=== PATIENT | male | born 1970 | race Caucasian/White ===

== ENCOUNTER 2020-09-07 12:44 | Inpatient (IN) ==
--- NOTE | 2020-09-07 13:30 | Emergency Department Note ---
History of Present Illness General Chief complaint: Illness Stated complaint: FATIGUE, STOMACH ACHE, WEAK Time Seen by Provider: 09/07/20 12:50 History of Present Illness This is a 50-year-old male with a history of hypertension as well as gout that presents to the emergency department via private vehicle with complaints "fatigue, stomachache, weak". The patient notes that he has a history of alcohol use however since the COVID- pandemic has significantly increased his alcohol consumption. He notes that at 1 point he was drinking greater than 4 drinks of vodka per day. He notes that he noticed itching and became jaundiced therefore stopped drinking 16 days ago. He denies any seizure history. He st ates that despite stopping the alcohol consumption he persists with worsening jaundice and itchiness. He also notes some discomfort when he eats in the superior mid abdomen. Patient denies any acetaminophen ingestion recently. Home Medications Medication Instructions Recorded Confirmed Type allopurinol 300 mg PO HS 09/07/20 09/07/20 History colchicine 0 mg PO DIRECTED PRN 09/07/20 09/07/20 History metoprolol tartrate 50 mg PO BID 09/07/20 09/07/20 History prednisone 0 mg PO DIRECTED PRN 09/07/20 09/07/20 History Allergies Allergy/AdvReac Type Severity Reaction Status Date / Time No Known Allergies Allergy Verified 09/07/20 15:31 Past Med/Surg History Medical History Elevated bilirubin Fatigue History of alcohol abuse Jaundice Surgical History No pertinent past surgical history Social History Smoking Status: Never smoker Hx Alcohol Use: No Hx Substance Use: No Preferred Language: Iranian Communication Ability: Effective Cafeteria Manager Required: No Beliefs That Will Affect Care: None Current Living Situation: Family Feels Safe at Home: Yes Safety Concerns: Feels Safe At This Time Assistive Devices: None Review of Systems A total of 10 systems reviewed and were otherwise negative Physical Exam Vital Signs Vital Signs - 24 hr 09/07/20 12:47 09/07/20 12:52 09/07/20 13:45 Temperature 36.4 C L Temperature Source Oral Oral Pulse Rate 71 Pulse Rate [Right Finger] 65 Pulse Rhythm Regular Pulse Strength Normal Respiratory Rate 20 18 Respiratory Effort / Characteristics Non-Labored Spontaneous Respiratory Depth Normal Respiratory Pattern Regular Blood Pressure 133/79 Blood Pressure [Right Arm] 131/75 Blood Pressure Mean 97 Blood Pressure Mean [Right Arm] 93 Blood Pressure Position Sitting Blood Pressure Position [Right Arm] Pulse Oximetry 98 98 Oxygen Delivery Method Room Air Room Air Room Air Sepsis Recent Fever Within 48 Hours No Sepsis New/Unexplained Change in Mental Status N/A Sepsis Action Taken by Nursing No Action Required 09/07/20 15:06 Temperature Temperature Source Pulse Rate Pulse Rate [Right Finger] 64 Pulse Rhythm Pulse Strength Respiratory Rate 18 Respiratory Effort / Characteristics Non-Labored Spontaneous Respiratory Depth Normal Respiratory Pattern Blood Pressure Blood Pressure [Right Arm] 133/83 Blood Pressure Mean Blood Pressure Mean [Right Arm] 99 Blood Pressure Position Blood Pressure Position [Right Arm] Sitting Pulse Oximetry 98 Oxygen Delivery Method Room Air Sepsis Recent Fever Within 48 Hours Sepsis New/Unexplained Change in Mental Status Sepsis Action Taken by Nursing VITAL SIGNS - Vital signs and nursing notes were reviewed. Stable and afebrile. GENERAL -50-year-old male appearing his stated age who is in no acute distress. Communicates well with provider and answers questions appropriately. SKIN -small erythematous slightly raised subcentimeter regions to the anterior chest. Jaundice. No definite petechiae. HEAD - NC/AT. EYES - PERRL with EOMI bilaterally. Sclera icteric. EARS - No deformities of external structures noted on gross examination bilaterally. NOSE - Midline and without cyanosis. No epistaxis or purulent drainage noted. MOUTH/OROPHARYNX - Without perioral cyanosis. Buccal mucosa pink and moist and without leukoplakia. Tongue midline with equal elevation of palate bilaterally. No tonsillar hypertrophy, erythema, or exudates noted. Fair dentition noted. NECK - Neck with FROM. No nuchal rigidity. LUNGS - Chest wall symmetric without accessory muscle use, intercostals ret ractions, or central cyanosis. Normal vesicular breath sounds CTA B/L. No wheezes, rales, or rhonchi appreciated. CARDIAC - RRR with S1/S2. No murmur, rubs, or gallops appreciated. ABDOMEN - Abdominal contour normal without pulsations or visible masses. BS normoactive all four quadrants. No tenderness to palpation. EXTREMITIES - No clubbing or peripheral cyanosis.+5/5 strength noted in UE/LE bilaterally. NEUROLOGIC - Cranial nerves II through XII grossly intact. PSYCH - A&Ox3 and cooperates fully with examiner. Pt is very pleasant and interacts well with examiner. Course Administered Medications Allopurinol (Allopurinol 300 Mg Tab) 300 mg PO HS JARED Stop: 10/07/20 20:59 Last Admin: 09/07/20 20:55 Dose: 300 mg Documented by: [id number] Cholestyramine Resin (Cholestyramine Light 4 Gm Pkt) 4 gm PO BID@1000,2200 JARED Stop: 10/08/20 14:59 Last Admin: 09/08/20 15:29 Dose: 4 gm Documented by: [id number] Hydroxyzine HCl (Hydroxyzine Hcl 25 Mg Tab) 25 mg PO Q8 PRN PRN Reason: Itching Stop: 10/08/20 09:10 Last Admin: 09/08/20 14:34 Dose: 25 mg Documented by: [id number] Metoprolol Tartrate (Metoprolol Tartrate 50 Mg Tab) 50 mg PO BID JARED Stop: 10/07/20 20:59 Last Admin: 09/08/20 07:36 Dose: 50 mg Documented by: [id number] Admin: 09/07/20 20:55 Dose: 50 mg Documented by: [id number] Pantoprazole Sodium (Pantoprazole 40 Mg Tab) 40 mg PO QAM JARED Stop: 10/08/20 10:59 Last Admin: 09/08/20 11:40 Dose: 40 mg Documented by: [id number] Prednisolone (Prednisolone Syrup 15 Mg/5 Ml Btl) 40 mg PO DAILY JARED Stop: 10/08/20 08:59 Last Admin: 09/08/20 07:36 Dose: 40 mg Documented by: [id number] Thiamine HCl (Thiamine Hcl 100 Mg Tab) 100 mg PO QAM JARED Stop: 10/08/20 08:59 Last Admin: 09/08/20 09:40 Dose: 100 mg Documented by: [id number] Zolpidem Tartrate (Zolpidem Tartrate 5 Mg Tab) 5 mg PO HS PRN PRN Reason: Sleep Stop: 10/07/20 21:24 Last Admin: 09/07/20 22:27 Dose: 5 mg Documented by: [id number] Discontinued Medications Ioversol (Optiray 320 100ml) 89 ml IV ONCE ONE Stop: 09/07/20 15:11 Last Admin: 09/07/20 15:10 Dose: 89 ml Documented by: [id number] Pantoprazole Sodium (Pantoprazole 40 Mg Tab) 40 mg PO NOW STA Stop: 09/07/20 15:37 Last Admin: 09/07/20 15:53 Dose: 40 mg Documented by: [id number] Medical Decision Making Laboratory Data Result diagrams: 09/08/20 07:04 09/08/20 07:04 Lab Results 09/07/20 09/07/20 09/07/20 Range/Units 13:40 13:40 13:40 WBC 13.04 H (4.8-10.8) K/uL RBC 3.90 L (4.7-6.1) M/uL Hgb 12.9 L (14.0-18.0) g/dL Hct 37.4 L (42-52) % MCV 95.9 (80-100) fL MCH 33.1 (25-34) pg MCHC 34.5 (32-36) g/dL RDW Std Deviation 56.6 H (36.4-46.3) fL RDW Coeff of Liliya 16.3 H (11.5-14.5) % Plt Count 400 (130-400) K/uL MPV 11.1 H (7.4-10.4) fL Immature Gran % (Auto) 1.0 % Neut % (Auto) 67.6 % Lymph % (Auto) 14.8 % Mckenzie % (Auto) 14.3 % Eos % (Auto) 1.5 % Baso % (Auto) 0.8 % Neut # (Auto) 8.81 H (1.4-6.5) K/uL Lymph # (Auto) 1.93 (1.2-3.4) K/uL Mckenzie # (Auto) 1.86 H (0.11-0.59) K/uL Eos # (Auto) 0.20 (0-0.5) K/uL Baso # (Auto) 0.11 (0-0.2) K/uL Immature Gran # (Auto) 0.13 H (0.00-0.02) K/uL PT 18.1 H (9.0-12.0) Seconds INR 1.9 H (0.9-1.1) APTT 31.2 H (21.0-31.0) Seconds PTT Ratio 1.2 Sodium 136 (136-145) mmol/L Potassium 4.0 (3.5-5.1) mmol/L Chloride 107 (98-107) mmol/L Carbon Dioxide 24 (21-32) mmol/L Anion Gap 5.0 (3-11) BUN 11 (7-18) mg/dl Creatinine 0.90 (0.6-1.4) mg/dl Est Cr Clr Drug Dosing 133.7 ml/min Est GFR ( Amer) 113.4 Est GFR (Non-Af Amer) 97.9 BUN/Creatinine Ratio 11.8 (10-20) Glucose 91 (70-99) mg/dl Lactate (0.4-2.0) mmol/L Calcium 8.2 L (8.5-10.1) mg/dl Magnesium 2.1 (1.8-2.4) mg/dl Total Bilirubin 11.5 H (0.2-1) mg/dl Direct Bilirubin 8.7 H (0-0.2) mg/dl AST 114 H (15-37) U/L ALT 45 (12-78) U/L Alkaline Phosphatase 207 H (45-117) U/L Total Protein 7.2 (6.4-8.2) gm/dl Albumin 1.9 L (3.4-5.0) gm/dl Procalcitonin (0-0.5) ng/ml Urine Color Urine Appearance (Clear) Urine pH (4.5-7.5) Ur Specific [place] (1.000-1.030) Urine Protein (Negative) Urine Glucose (UA) (Negative) Urine Ketones (Negative) Urine Blood (Negative) Urine Nitrite (Negative) Urine Bilirubin (Negative) Urine Urobilinogen (Negative) Ur Leukocyte Esterase (Negative) Urine WBC (Auto) (0-5) /hpf Urine RBC (Auto) (0-4) /hpf U Hyaline Cast (Auto) (0-5) /lpf U Epithel Cells (Auto) (0-5) /lpf Urine Bacteria (Auto) (Negative) Urine Opiates Screen (Neg) Ur Methadone, Qual (Neg) Urine Barbiturates (Neg) Ur Phencyclidine (PCP) (Neg) U Amphetamin/Meth Scrn (Neg) MDMA (Ecstasy) Screen (Neg) U Benzodiazepines Scrn (Neg) Ur Cocaine Metabolite (Neg) U Marijuana (THC) Screen (Neg) COVID-19 Eval Order SARS-CoV-2 (PCR) (Negative) Hep Bs Antigen (Neg) Hepatitis C Antibody (Neg) Influenza Type A (PCR) (Neg) Influenza Type B (PCR) (Neg) RSV (RT-PCR) (Neg) 09/07/20 09/07/20 09/07/20 Range/Units 13:40 15:53 15:53 WBC (4.8-10.8) K/uL RBC (4.7-6.1) M/uL Hgb (14.0-18.0) g/dL Hct (42-52) % MCV (80-100) fL MCH (25-34) pg MCHC (32-36) g/dL RDW Std Deviation (36.4-46.3) fL RDW Coeff of Liliya (11.5-14.5) % Plt Count (130-400) K/uL MPV (7.4-10.4) fL Immature Gran % (Auto) % Neut % (Auto) % Lymph % (Auto) % Mckenzie % (Auto) % Eos % (Auto) % Baso % (Auto) % Neut # (Auto) (1.4-6.5) K/uL Lymph # (Auto) (1.2-3.4) K/uL Mckenzie # (Auto) (0.11-0.59) K/uL Eos # (Auto) (0-0.5) K/uL Baso # (Auto) (0-0.2) K/uL Immature Gran # (Auto) (0.00-0.02) K/uL PT (9.0-12.0) Seconds INR (0.9-1.1) APTT (21.0-31.0) Seconds PTT Ratio Sodium (136-145) mmol/L Potassium (3.5-5.1) mmol/L Chloride (98-107) mmol/L Carbon Dioxide (21-32) mmol/L Anion Gap (3-11) BUN (7-18) mg/dl Creatinine (0.6-1.4) mg/dl Est Cr Clr Drug Dosing ml/min Est GFR ( Amer) Est GFR (Non-Af Amer) BUN/Creatinine Ratio (10-20) Glucose (70-99) mg/dl Lactate (0.4-2.0) mmol/L Calcium (8.5-10.1) mg/dl Magnesium (1.8-2.4) mg/dl Total Bilirubin (0.2-1) mg/dl Direct Bilirubin (0-0.2) mg/dl AST (15-37) U/L ALT (12-78) U/L Alkaline Phosphatase (45-117) U/L Total Protein (6.4-8.2) gm/dl Albumin (3.4-5.0) gm/dl Procalcitonin 0.54 H (0-0.5) ng/ml Urine Color Dark Yellow Urine Appearance Clear (Clear) Urine pH 7.0 (4.5-7.5) Ur Specific [place] > 1.045 H (1.000-1.030) Urine Protein Negative (Negative) Urine Glucose (UA) Negative (Negative) Urine Ketones Negative (Negative) Urine Blood Negative (Negative) Urine Nitrite Positive A (Negative) Urine Bilirubin 3+ H (Negative) Urine Urobilinogen Positive H (Negative) Ur Leukocyte Esterase Negative (Negative) Urine WBC (Auto) 1-5 (0-5) /hpf Urine RBC (Auto) 0-4 (0-4) /hpf U Hyaline Cast (Auto) 1-5 (0-5) /lpf U Epithel Cells (Auto) 5-10 H (0-5) /lpf Urine Bacteria (Auto) Negative (Negative) Urine Opiates Screen (Neg) Ur Methadone, Qual (Neg) Urine Barbiturates (Neg) Ur Phencyclidine (PCP) (Neg) U Amphetamin/Meth Scrn (Neg) MDMA (Ecstasy) Screen (Neg) U Benzodiazepines Scrn (Neg) Ur Cocaine Metabolite (Neg) U Marijuana (THC) Screen (Neg) COVID-19 Eval Order CovFluRsv at [facility] SARS-CoV-2 (PCR) (Negative) Hep Bs Antigen (Neg) Hepatitis C Antibody (Neg) Influenza Type A (PCR) (Neg) Influenza Type B (PCR) (Neg) RSV (RT-PCR) (Neg) 09/07/20 09/07/20 09/07/20 Range/Units 15:53 15:53 16:46 WBC (4.8-10.8) K/uL RBC (4.7-6.1) M/uL Hgb (14.0-18.0) g/dL Hct (42-52) % MCV (80-100) fL MCH (25-34) pg MCHC (32-36) g/dL RDW Std Deviation (36.4-46.3) fL RDW Coeff of Liliya (11.5-14.5) % Plt Count (130-400) K/uL MPV (7.4-10.4) fL Immature Gran % (Auto) % Neut % (Auto) % Lymph % (Auto) % Mckenzie % (Auto) % Eos % (Auto) % Baso % (Auto) % Neut # (Auto) (1.4-6.5) K/uL Lymph # (Auto) (1.2-3.4) K/uL Mckenzie # (Auto) (0.11-0.59) K/uL Eos # (Auto) (0-0.5) K/uL Baso # (Auto) (0-0.2) K/uL Immature Gran # (Auto) (0.00-0.02) K/uL PT (9.0-12.0) Seconds INR (0.9-1.1) APTT (21.0-31.0) Seconds PTT Ratio Sodium (136-145) mmol/L Potassium (3.5-5.1) mmol/L Chloride (98-107) mmol/L Carbon Dioxide (21-32) mmol/L Anion Gap (3-11) BUN (7-18) mg/dl Creatinine (0.6-1.4) mg/dl Est Cr Clr Drug Dosing ml/min Est GFR ( Amer) Est GFR (Non-Af Amer) BUN/Creatinine Ratio (10-20) Glucose (70-99) mg/dl Lactate (0.4-2.0) mmol/L Calcium (8.5-10.1) mg/dl Magnesium (1.8-2.4) mg/dl Total Bilirubin (0.2-1) mg/dl Direct Bilirubin (0-0.2) mg/dl AST (15-37) U/L ALT (12-78) U/L Alkaline Phosphatase (45-117) U/L Total Protein (6.4-8.2) gm/dl Albumin (3.4-5.0) gm/dl Procalcitonin (0-0.5) ng/ml Urine Color Urine Appearance (Clear) Urine pH (4.5-7.5) Ur Specific [place] (1.000-1.030) Urine Protein (Negative) Urine Glucose (UA) (Negative) Urine Ketones (Negative) Urine Blood (Negative) Urine Nitrite (Negative) Urine Bilirubin (Negative) Urine Urobilinogen (Negative) Ur Leukocyte Esterase (Negative) Urine WBC (Auto) (0-5) /hpf Urine RBC (Auto) (0-4) /hpf U Hyaline Cast (Auto) (0-5) /lpf U Epithel Cells (Auto) (0-5) /lpf Urine Bacteria (Auto) (Negative) Urine Opiates Screen Neg (Neg) Ur Methadone, Qual Neg (Neg) Urine Barbiturates Neg (Neg) Ur Phencyclidine (PCP) Neg (Neg) U Amphetamin/Meth Scrn Neg (Neg) MDMA (Ecstasy) Screen Neg (Neg) U Benzodiazepines Scrn Neg (Neg) Ur Cocaine Metabolite Neg (Neg) U Marijuana (THC) Screen Neg (Neg) COVID-19 Eval Order SARS-CoV-2 (PCR) NEGATIVE (Negative) Hep Bs Antigen Neg (Neg) Hepatitis C Antibody Neg (Neg) Influenza Type A (PCR) Negative (Neg) Influenza Type B (PCR) Negative (Neg) RSV (RT-PCR) Negative (Neg) 09/07/20 Range/Units 16:46 WBC (4.8-10.8) K/uL RBC (4.7-6.1) M/uL Hgb (14.0-18.0) g/dL Hct (42-52) % MCV (80-100) fL MCH (25-34) pg MCHC (32-36) g/dL RDW Std Deviation (36.4-46.3) fL RDW Coeff of Liliya (11.5-14.5) % Plt Count (130-400) K/uL MPV (7.4-10.4) fL Immature Gran % (Auto) % Neut % (Auto) % Lymph % (Auto) % Mckenzie % (Auto) % Eos % (Auto) % Baso % (Auto) % Neut # (Auto) (1.4-6.5) K/uL Lymph # (Auto) (1.2-3.4) K/uL Mckenzie # (Auto) (0.11-0.59) K/uL Eos # (Auto) (0-0.5) K/uL Baso # (Auto) (0-0.2) K/uL Immature Gran # (Auto) (0.00-0.02) K/uL PT (9.0-12.0) Seconds INR (0.9-1.1) APTT (21.0-31.0) Seconds PTT Ratio Sodium (136-145) mmol/L Potassium (3.5-5.1) mmol/L Chloride (98-107) mmol/L Carbon Dioxide (21-32) mmol/L Anion Gap (3-11) BUN (7-18) mg/dl Creatinine (0.6-1.4) mg/dl Est Cr Clr Drug Dosing ml/min Est GFR ( Amer) Est GFR (Non-Af Amer) BUN/Creatinine Ratio (10-20) Glucose (70-99) mg/dl Lactate 1.5 (0.4-2.0) mmol/L Calcium (8.5-10.1) mg/dl Magnesium (1.8-2.4) mg/dl Total Bilirubin (0.2-1) mg/dl Direct Bilirubin (0-0.2) mg/dl AST (15-37) U/L ALT (12-78) U/L Alkaline Phosphatase (45-117) U/L Total Protein (6.4-8.2) gm/dl Albumin (3.4-5.0) gm/dl Procalcitonin (0-0.5) ng/ml Urine Color Urine Appearance (Clear) Urine pH (4.5-7.5) Ur Specific [place] (1.000-1.030) Urine Protein (Negative) Urine Glucose (UA) (Negative) Urine Ketones (Negative) Urine Blood (Negative) Urine Nitrite (Negative) Urine Bilirubin (Negative) Urine Urobilinogen (Negative) Ur Leukocyte Esterase (Negative) Urine WBC (Auto) (0-5) /hpf Urine RBC (Auto) (0-4) /hpf U Hyaline Cast (Auto) (0-5) /lpf U Epithel Cells (Auto) (0-5) /lpf Urine Bacteria (Auto) (Negative) Urine Opiates Screen (Neg) Ur Methadone, Qual (Neg) Urine Barbiturates (Neg) Ur Phencyclidine (PCP) (Neg) U Amphetamin/Meth Scrn (Neg) MDMA (Ecstasy) Screen (Neg) U Benzodiazepines Scrn (Neg) Ur Cocaine Metabolite (Neg) U Marijuana (THC) Screen (Neg) COVID-19 Eval Order SARS-CoV-2 (PCR) (Negative) Hep Bs Antigen (Neg) Hepatitis C Antibody (Neg) Influenza Type A (PCR) (Neg) Influenza Type B (PCR) (Neg) RSV (RT-PCR) (Neg) Imaging Data Radiologist's Impression: Abdomen/Pelvis CT 09/07/20 13:02 CT abd pelvis IV con only CLINICAL HISTORY: jaundice, intermittent abd pain COMPARISON STUDY: None. TECHNIQUE: Patient was scanned in a dynamic helical fashion during the intravenous administration of 89 cc of Optiray 320 A dose lowering technique was utilized adhering to the principles of ALARA. CT DOSE: 1215.01 mGy.cm FINDINGS: Lower chest: The heart is normal in size and configuration, without pericardial effusion. The lung bases and pleural spaces are clear. Liver: No focal hepatic masses are visualized. The portal and hepatic veins are patent. There is an equivocal subtle nodular contour of the serosal surface of the liver. There is a small amount of perihepatic fluid present. Gallbladder: Distended. No calculi are visualized. Spleen: Enlarged measuring 14.7 cm. There is perisplenic fluid. Pancreas: Unremarkable. Adrenal glands: Unremarkable. Kidneys: There is left renal cortical scarring. There are no solid renal masses. There is no hydronephrosis. Bowel: There are no transition zones to indicate bowel obstruction. There is no evidence of acute diverticulitis. There is no evidence of acute appendicitis. Peritoneum: There is minimal ascites. There is no free intraperitoneal air. There is a tiny fat-containing umbilical hernia Vasculature: The abdominal aorta is normal in course and caliber. Adenopathy: None. Pelvic viscera: The bladder, and pelvic viscera are unremarkable. Skeletal structures: No destructive osseous lesions are seen. IMPRESSION: 1. No evidence of bowel obstruction. No evidence of free air 2. No evidence of acute appendicitis. No evidence of acute diverticulitis. 3. Minimal ascites 4. Subtle nodularity of the hepatic serosal surface raising the possibility of cirrhosis. Clinical correlation in this regard is advocated 5. Splenomegaly 6. Distended gallbladder. No calculi identified. 7. Small amount of ascites ACT 112: Negative or not required by law. Electronically signed by: Nathanael Amador M.D. 09/07/2020 3:13 PM Chest X-Ray 09/07/20 15:34 XR chest 1V portable HISTORY: Cough. EVAL FOR PNEUMONIA COMPARISON: None. FINDINGS: The lungs are clear. Cardiac silhouette is normal in size. No pleural effusions. No pneumothorax. IMPRESSION: No acute process. ACT 112: Negative or not required by law. Electronically signed by: Jamshid Ivy M.D. 09/07/2020 4:38 PM MDM Narrative Patient was seen and evaluated as above in room C7. Review was performed of nursing notes and vital signs. After obtaining a thorough history and physical examination the above work up was performed. Patient presents to us today with fatigue, intermittent abdominal pain, jaundice, history of alcohol abuse. On arrival he appears quite jaundiced. Options of care were discussed with the patient. IV access established. Labs were drawn. There is mild leukocytosis 13.04 with mild anemia at 12.9. No thrombocytopenia. INR elevation at 1.9. Calcium 8.2. Direct bilirubin 8.7. T bili 11.5. Alk phos 207. AST 114. ALT 45. Albumin 1.9. Pro-Micky 0.54. Urinalysis consistent with patient's bilirubin elevation. I did order a CT scan of the abd/pelvis to further assess presentation. Results as above. I did discuss presentation with the attending physician as well as the on-call GI sp ecialist. I spoke to Cristal Abdi NP. We reviewed the case. We discussed the importance of further evaluating for any potential underlying infectious etiology therefore chest x-ray, urine drug screen, hepatitis panel, among other tests were ordered. We also discussed potential for steroid initiation however GI notes that they will determine this. They also recommended a daily PPI. I did order this for the patient. GI then noted that they would be happy to see the patient tomorrow here in the hospital. I then discussed the case with the hospitalist for admission. Please refer to further documentation regarding the patient's stay. Patient amenable to plan of care. I suspect patient is likely experiencing acute alcoholic hepatitis. Case was discussed with the attending physician. GCS: 15 In the evaluation and treatment of this patient the following differential diagnoses were entertained: Liver failure, acute alcoholic hepatitis, cirrhosis, cholangitis, sepsis, among others. Impression & Plan Alcoholic hepatitis, Elevated bilirubin, Jaundice, Fatigue Discharge Plan Visit Data Chief Complaint: Illness Stated Complaint: FATIGUE, STOMACH ACHE, WEAK ED Provider: Collin Peña ED Midlevel Provider: Moshe Barragan Discharge Problem: Alcoholic hepatitis, Elevated bilirubin, Jaundice, Fatigue Patient Disposition: Admitted As Inpatient Condition: Good Discharge Instructions Interventions: ED Discharge Assessment Last Done: 09/07/20 17:33
[2020-09-07 13:53] LABS: Basophils # (auto) 0.11 K/uL (0-0.2); Basophils % (auto) 0.8 %; Eosinophils % (auto) 1.5 %; Hematocrit (blood only) 37.4 % (42-52); Hemoglobin 12.9 g/dL (14.0-18.0); Immature Granulocytes # (auto) 0.13 K/uL (0.00-0.02); Lymphocytes # (auto) 1.93 K/uL (1.2-3.4); Lymphocytes % (auto) 14.8 %; Mean Corpuscular Hemoglobin 33.1 pg (25-34); Mean Corpuscular Hgb Conc 34.5 g/dL (32-36); Mean Corpuscular Volume 95.9 fL (80-100); Mean Platelet Volume 11.1 fL (7.4-10.4); Monocytes # (auto) 1.86 K/uL (0.11-0.59); Monocytes % (auto) 14.3 %; Neutrophils # (auto) 8.81 K/uL (1.4-6.5); Neutrophils % (auto) 67.6 %; Platelet Count 400 K/uL (130-400); RDW Coefficient of Variation 16.3 % (11.5-14.5); RDW Standard Deviation 56.6 fL (36.4-46.3); White Blood Count 13.04 K/uL (4.8-10.8)
[2020-09-07 14:07] LABS: INR 1.9 (0.9-1.1); Partial Thromboplastin Ratio 1.2; Partial Thromboplastin Time 31.2 Seconds (21.0-31.0); Prothrombin Time 18.1 Seconds (9.0-12.0)
[2020-09-07 14:40] LABS: Albumin Level 1.9 gm/dl (3.4-5.0); BUN Creatinine Ratio 11.8 (10-20); Bilirubin Direct 8.7 mg/dl (0-0.2); Bilirubin,Total 11.5 mg/dl (0.2-1); Calcium 8.2 mg/dl (8.5-10.1); Creatinine Clr Calc Pharmacy 133.7 ml/min; Est GFR (African American) 113.4; Est GFR (Non-African American) 97.9; Magnesium 2.1 mg/dl (1.8-2.4); Total Protein 7.2 gm/dl (6.4-8.2)
[2020-09-07] MEDS ORDERED: OPTIRAY 320 100ml IV ONE (15:10)
--- NOTE | 2020-09-07 15:14 | CT Scan Report ---
CT abd pelvis IV con only CLINICAL HISTORY: jaundice, intermittent abd pain COMPARISON STUDY: None. TECHNIQUE: Patient was scanned in a dynamic helical fashion during the intravenous administration of 89 cc of Optiray 320 A dose lowering technique was utilized adhering to the principles of ALARA. CT DOSE: 1215.01 mGy.cm FINDINGS: Lower chest: The heart is normal in size and configuration, without pericardial effusion. The lung ba ses and pleural spaces are clear. Liver: No focal hepatic masses are visualized. The portal and hepatic veins are patent. There is an e quivocal subtle nodular contour of the serosal surface of the liver. There is a small amount of perih epatic fluid present. Gallbladder: Distended. No calculi are visualized. Spleen: Enlarged measuring 14.7 cm. There is perisplenic fluid. Pancreas: Unremarkable. Adrenal glands: Unremarkable. Kidneys: There is left renal cortical scarring. There are no solid renal masses. There is no hydronep hrosis. Bowel: There are no transition zones to indicate bowel obstruction. There is no evidence of acute div erticulitis. There is no evidence of acute appendicitis. Peritoneum: There is minimal ascites. There is no free intraperitoneal air. There is a tiny fat-conta ining umbilical hernia Vasculature: The abdominal aorta is normal in course and caliber. Adenopathy: None. Pelvic viscera: The bladder, and pelvic viscera are unremarkable. Skeletal structures: No destructive osseous lesions are seen. IMPRESSION: 1. No evidence of bowel obstruction. No evidence of free air 2. No evidence of acute appendicitis. No evidence of acute diverticulitis. 3. Minimal ascites 4. Subtle nodularity of the hepatic serosal surface raising the possibility of cirrhosis. Clinical co rrelation in this regard is advocated 5. Splenomegaly 6. Distended gallbladder. No calculi identified. 7. Small amount of ascites ACT 112: Negative or not required by law. Electronically signed by: Nathanael Amador M.D. 09/07/2020 3:13 PM
[2020-09-07] MEDS ORDERED: PANTOprazole 40 MG TAB PO STA (15:36)
--- NOTE | 2020-09-07 16:04 | History & Physical Report ---
Date of Service September 07, 2020 Assessment & Plan (1) Alcoholic hepatitis: 50 yo male who drank heavily for the past year developed. Patient Has a an elevated Maddrey score in the 40s. MELD score is showing 3 mortality: 20% It appears patient has not had a drink for over [address] on prednisolone 40 mg daily. will consult GI. NPO after midnight for possible scope Thankfully he is not showing any signs of collateral vein on abdominal exam. will monitor his liver function. Best case scenario his labs improve, but it appears likely that he has developed cirrhosis. Explaied to him that this is a long road and that he will need to continue to abstain from drinking. Will help get him in touch with a liver specialist and a support team to get him through this. (2) Hypertension: BP at goal. continue metoprolol (3) History of alcohol abuse: no isngs of withdrawal. will monitor. History of Present Illness Chief Complaint: yellow skin and itchiness Primary Care Provider: NO PCP 'This is a pleasant 50 yo male who presents with jaundice and generalized pruritus. He reports PMH of gout. He reports having a "tolerance" to drink. He reports that he has drank more over the course of this past year starting from December 2019. He states it is difficult to quantify how much he drinks, but reports having 4 drinks of vodka in a 16 ounce glass. 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 He reports that once he realized he was becoming yellow, he stopped drinking 6 weeks This was accompanied by generalized pruritis. Given how his symptoms have not improved, he decided to come into the hospital Allergies Allergy/AdvReac Type Severity Reaction Status Date / Time No Known Allergies Allergy Verified 09/07/20 15:31 Home Medications Medication Instructions Recorded Confirmed Type allopurinol 300 mg PO HS 09/07/20 09/07/20 History colchicine 0 mg PO DIRECTED PRN 09/07/20 09/07/20 History metoprolol tartrate 50 mg PO BID 09/07/20 09/07/20 History prednisone 0 mg PO DIRECTED PRN 09/07/20 09/07/20 History Past Med/Surg History Medical History (Updated 09/08/20 @ 07:01 by Iraj Kinsey) Elevated bilirubin Fatigue History of alcohol abuse Jaundice Social History Smoking Status: Never smoker Hx Alcohol Use: No Hx Substance Use: No Preferred Language: Egyptian Communication Ability: Effective 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 Beliefs That Will Affect Care: None Current Living Situation: Family Feels Safe at Home: Yes Safety Concerns: Feels Safe At This Time Assistive Devices: None Review of Systems Constitutional: + fatigue, + malaise and + weakness; no chills and no sweats Eyes: no blind spots and no diplopia Ear, Nose, Mouth, Throat: no tinnitus and no dizziness Respiratory: no cough and no change in sputum Cardiovascular: no chest pain and no radiating jaw, neck or arm pain Gastrointestinal: no abdominal pain and no early satiety Genitourinary: no dysuria and no urinary hesitancy Musculoskeletal: no back pain Integumentary: + pruritus and + yellowing of the skin Neurologic: no falls and no paralysis Psychiatric: no behavioral changes and no anhedonia Endocrine: no fatigue Hematologic / Lymphatic: no coagulopathy Physical Exam Constitutional: WD/WN, vitals as above Eyes: PERRLA, icteric sclerae No erythema on the palms ENMT: external ear and nose normal, oropharynx normal Neck: trachea midline, no thyromegaly Respiratory: normal respiratory effort, lungs clear to auscultation Cardiovascular: RRR, no murmur, no edema Gastrointestinal (Abdomen): normal bowel sounds, soft, nontender, no hepatosplenomegaly Musculoskeletal: no cyanosis or clubbing, extremities motor strength 5/5 Skin: no rashes, warm and dry Neurologic: PERRL, EOMI, accommodation nl, no face palsy, no dysarthria Psychiatric: A+Ox3, euthymic affect Lymphatic: no cervical or axillary lymphadenopathy Results & Data Results & Data ([facility]) Vital Signs (Past 12 Hours) Vital Signs Temp Pulse Pulse Resp BP BP Pulse Ox 09/07/20 15:06 64 18 133/83 98 09/07/20 13:45 65 18 131/75 98 09/07/20 12:47 36.4 C L 71 20 133/79 98 PG Care Time/CCT Total # of Minutes Spent Total Time Spent with Patient: Total time spent is greater than 50% in coordination of care (as documented) at patient's floor/unit and/or counseling patient: Coding Level of Care Code 20653 Initial Inpt Care Lvl 3 Diagnoses Alcoholic hepatitis K70.10 Hypertension I10 History of alcohol abuse F10.11 Time Spent (min) 65
[2020-09-07 16:19] LABS: Appearance Urine Clear (Clear); Bacteria Urine Automated Negative (Negative); Blood Urine Negative (Negative); Color Urine Dark Yellow; Glucose Urine UA Negative (Negative); Ketones Urine Negative (Negative); Leukocyte Esterase Urine Negative (Negative); Nitrite Urine Positive (Negative); Protein Urine Negative (Negative); RBC Urine Automated 0-4 /hpf (0-4); Specific Gravity Urine > 1.045 (1.000-1.030); Urobilinogen Urine Positive (Negative)
[2020-09-07 16:28] LABS: Bilirubin Urine 3+ (Negative)
--- NOTE | 2020-09-07 16:40 | XRay Report ---
XR chest 1V portable HISTORY: Cough. EVAL FOR PNEUMONIA COMPARISON: None. FINDINGS: The lungs are clear. Cardiac silhouette is normal in size. No pleural effusions. No pneumot horax. IMPRESSION: No acute process. ACT 112: Negative or not required by law. Electronically signed by: Jamshid Ivy M.D. 09/07/2020 4:38 PM
[2020-09-07 16:43] LABS: Influenza A virus by PCR Negative (Neg); Influenza B virus by PCR Negative (Neg); RSV by PCR Negative (Neg); SARS CoV2 RNA(COVID-19) InHosp NEGATIVE (Negative)
[2020-09-07 16:46] LABS: Amphetamines+Metham, Urine Neg (Neg); Barbiturates, Urine Neg (Neg); Benzodiazepine, Urine Neg (Neg); Cocaine, Urine Neg (Neg); MDMA (Ecstacy), Urine Neg (Neg); Methadone, Urine Neg (Neg); Opiate, Urine Neg (Neg); Phencyclidine, Urine Neg (Neg)
[2020-09-07 17:41] LABS: Hepatitis B Surf Ag Rflx Conf Neg (Neg)
[2020-09-07 18:11] LABS: Hepatitis C IgG 13Yrs+Old_Rflx Neg (Neg)
[2020-09-07] MEDS: METOPROLOL TARTRATE 50 MG TAB PO SCH (20:55)
[2020-09-07] MEDS: allopurinoL 300 MG TAB PO SCH (20:55)
[2020-09-07] MEDS: ZOLPIDEM TARTRATE 5 MG TAB PO PRN (22:27)
[2020-09-08 07:32] LABS: Basophils # (auto) 0.09 K/uL (0-0.2); Basophils % (auto) 0.8 %; Eosinophils # (auto) 0.19 K/uL (0-0.5); Eosinophils % (auto) 1.6 %; Hematocrit (blood only) 33.2 % (42-52); Hemoglobin 11.8 g/dL (14.0-18.0); Immature Granulocytes # (auto) 0.08 K/uL (0.00-0.02); Immature Granulocytes % (auto) 0.7 %; Lymphocytes # (auto) 1.79 K/uL (1.2-3.4); Mean Corpuscular Hgb Conc 35.5 g/dL (32-36); Mean Corpuscular Volume 95.7 fL (80-100); Mean Platelet Volume 10.8 fL (7.4-10.4); Monocytes # (auto) 1.45 K/uL (0.11-0.59); Monocytes % (auto) 12.1 %; Neutrophils # (auto) 8.35 K/uL (1.4-6.5); Neutrophils % (auto) 69.8 %; Platelet Count 332 K/uL (130-400); RDW Coefficient of Variation 16.3 % (11.5-14.5); RDW Standard Deviation 56.8 fL (36.4-46.3); Red Blood Count 3.47 M/uL (4.7-6.1); White Blood Count 11.95 K/uL (4.8-10.8)
[2020-09-08] MEDS: prednisoLONE SYRUP 15 MG/5 ML BTL PO SCH (07:36)
[2020-09-08] MEDS: METOPROLOL TARTRATE 50 MG TAB PO SCH ×2 (07:36→20:09)
--- NOTE | 2020-09-08 07:47 | Hospitalist Progress Note ---
Date of Service September 08, 2020 Assessment & Plan (1) Alcoholic hepatitis: 50 yo male who drank heavily for the past year developed. Patient Has a an elevated Maddrey score in the 40s. MELD score is showing 3 mortality: 20% patient states he has not had a drink for over 2 weeks. Started on prednisolone 40 mg daily, consult GI. initial INR is 1.9 CT abdomen and pelvis shows nodular liver consistent with cirrhosis and splenomegaly (2) Hypertension: BP at goal.remains on metoprolol (3) History of alcohol abuse: no signs of withdrawal. if truely stopped drinking 2 weeks ago past risk of significant withdrawal Admission and Anticipated Discharge Date Admission Date: September 07, 2020 Subjective pt has resolution of abdominal pain and much less nausea, has some itchyness that is still bothersome Review of Systems Review of Systems: Mild distress and fatigue no headache, blurry or double vision no speech or swallowing issues no chest pain, pressure or palpitations no shortness of breath, cough or wheezes Resolution of abdominal pain, persistent of nausea without vomiting no dysuria, hematuria or frequency no focal joint pain or swelling no back pain, CVA tenderness or radicular pain no bruising, bleeding or rashes jaundice and pruritus no focal signs of weakness or numbness or altered sensation no complaints of anxiety or depression.. Physical Exam Physical Exam: The patient appeared well nourished and normally developed. Vital signs as documented. Head exam is normocephalic atraumatic no scleral icterus Neck is without JVD, thyromegaly, or carotid bruits. Lungs are clear to auscultation, no focal loss of breath sounds Cardiac exam, Rhythm is regular.. No murmurs, rubs or gallops. Abdominal exam reveals distention dullness mild uncomfortable feeling to examination Extremities are nonedematous and both pedal pulses are present Neurologic exam is alert and oriented, no focal loss of strength or sensation no tremor no asterixis Skin is with jaundiced Psychologically is without concerns for anxiety or depression Results & Data Results & Data ([facility]) Vital Signs (Past 12 Hours) Vital Signs Temp Pulse Pulse Resp BP Pulse Ox 09/08/20 02:39 98.1 F 75 18 124/70 98 09/07/20 22:43 98.2 F 68 18 125/70 98 09/07/20 22:20 76 09/07/20 19:52 98.2 F 66 18 126/78 97 PG Care Time/CCT Total # of Minutes Spent Total Time Spent with Patient: Total time spent is greater than 50% in coordination of care (as documented) at patient's floor/unit and/or counseling patient: Coding Level of Care Code 38649 Subseq Hosp Care Lvl 3 Diagnoses Alcoholic hepatitis K70.10 Hypertension I10 History of alcohol abuse F10.11
[2020-09-08 07:51] LABS: INR 1.9 (0.9-1.1); Prothrombin Time 18.3 Seconds (9.0-12.0)
[2020-09-08 08:09] LABS: Albumin Globulin Ratio 0.4 (0.9-2); Albumin Level 1.8 gm/dl (3.4-5.0); BUN Creatinine Ratio 12.1 (10-20); Bilirubin,Total 9.9 mg/dl (0.2-1); Creatinine Clr Calc Pharmacy 127.2 ml/min; Est GFR (African American) 107.6; Est GFR (Non-African American) 92.8; Globulin 4.6 gm/dl (2.5-4.0); Potassium 4.2 mmol/L (3.5-5.1); Total Protein 6.4 gm/dl (6.4-8.2)
[2020-09-08] MEDS ORDERED: hydrOXYzine HCl 25 MG TAB PO PRN (09:11)
--- NOTE | 2020-09-08 09:11 | Gastrointestinal Consultation ---
Date of Consultation September 08, 2020 Assessment & Plan (1) Alcoholic hepatitis: Pt is a 50 y/o male presented w jaundice, itching, noted to have elevated LFTs, w/o CT evidence of biliary obstruction, cholelithiasis. He has hx of heavy ETOH use, suspect ETOH hepatitis w cirrhosis (noted on CT). Maddrey Discriminant Function score >32. MELD 23 - Prednisolone 40mg daily. Check Lille score after 7 days, if score is >0.45 then, pt isn't responding to steroids and will stop it. Otherwise if improving, will continue Prednisolone for 28 days before tapering - Continue diet - Trend LFTs, coags, renal function; monitor mental status - Monitor for ETOH withdrawal - Strict ETOH cessation - Will arrange f/u in GI clinic upon DC for continued management - GI to sign off; pls recall prn Supervising Physician Co-Signing Physician Notes I performed a history and physical examination of the patient today, including specifically on physical exam - soft abdomen. I have discussed the patient's management with the advanced practitioner. Please refer to the nurse practitioner's note for the documented findings and plan of care. History of Present Illness Reason for Consultation: Alcoholic hepatitis Requesting Physician: Dr. Pedro Byrne Attending Physician: Dr. Ben Phillips History of Present Illness Pt is a 50 y/o male who presented to ED w c/o jaundice and itching. He admits to 'large amt' of ETOH intake, but had stopped drinking ETOH 16 days ago. [place] generally unwell since months ago but had just noticed himself appearing jaundiced about 1 week ago. Denies fever, chills, CP, SOB. + abd bloating but no pain, n/v, bowel habit changes, no rashes. On eval noted LFTs up: Tbili 9.9, AST 107, ALT 37, Alk phos 198. INR 1.9, Plt 332. CT abd/pelvis w contrast: 1. No evidence of bowel obstruction. No evidence of free air 2. No evidence of acute appendicitis. No evidence of acute diverticulitis. 3. Minimal ascites 4. Subtle nodularity of the hepatic serosal surface raising the possibility of cirrhosis. Clinical correlation in this regard is advocated 5. Splenomegaly 6. Distended gallbladder. No calculi identified. 7. Small amount of ascites Family hx of alcoholism in multiple family members. Denies autoimmune dz, hepatobiliary, colorectal ca Denies tattoos, body piercing, blood transfusion. Previously worked in sales, laid off. Allergies Allergy/AdvReac Type Severity Reaction Status Date / Time No Known Allergies Allergy Verified 09/07/20 15:31 Home Medications Medication Instructions Recorded Confirmed Type allopurinol 300 mg PO HS 09/07/20 09/07/20 History colchicine 0 mg PO DIRECTED PRN 09/07/20 09/07/20 History metoprolol tartrate 50 mg PO BID 09/07/20 09/07/20 History prednisone 0 mg PO DIRECTED PRN 09/07/20 09/07/20 History Patient History Medical History Elevated bilirubin Fatigue History of alcohol abuse Jaundice Surgical History No pertinent past surgical history Social History Smoking Status: Never smoker Hx Alcohol Use: No Hx Substance Use: No Preferred Language: Indonesian Communication Ability: Effective Learning And Development Manager Required: No Beliefs That Will Affect Care: None Current Living Situation: Family Feels Safe at Home: Yes Safety Concerns: Feels Safe At This Time Assistive Devices: None Review of Systems Review of Systems: All systems reviewed & are unremarkable except as noted in HPI & below Physical Exam Constitutional: WD/WN, vitals as above well groomed, cooperative and comfortable Eyes: + scleral abnormality (icteric) and PERRL ENMT: external ear and nose normal, oropharynx normal Respiratory: normal respiratory effort, lungs clear to auscultation Cardiovascular: RRR, no murmur, no edema Gastrointestinal (Abdomen): normal bowel sounds, soft, nontender, no hepatosplenomegaly Skin: no rashes, warm and dry + jaundice Neurologic: Motor/Sensory: no asterixis Psychiatric: A+Ox3, euthymic affect Lymphatic: no lymphedema Results & Data ([facility]) Vital Signs (Past 12 Hours) Vital Signs Temp Pulse Pulse Resp BP Pulse Ox 09/08/20 08:03 36.9 C 61 18 121/69 95 09/08/20 07:58 63 09/08/20 02:39 36.7 C 75 18 124/70 98 09/07/20 22:43 36.8 C 68 18 125/70 98 09/07/20 22:20 76
[2020-09-08] MEDS ORDERED: CYANOCOBALAMIN 500 MCG TABLET (VITAMIN B-12) PO SCH (09:30)
[2020-09-08] MEDS: THIAMINE HCL 100 MG TAB PO SCH (09:40)
[2020-09-08] MEDS: PANTOprazole 40 MG TAB PO SCH (11:40)
[2020-09-08] MEDS: CHOLESTYRAMINE LIGHT 4 GM PKT PO SCH ×2 (15:29→21:48)
[2020-09-08] MEDS: allopurinoL 300 MG TAB PO SCH (20:09)
[2020-09-08] MEDS: ZOLPIDEM TARTRATE 5 MG TAB PO PRN (23:38)
[2020-09-09] MEDS: THIAMINE HCL 100 MG TAB PO SCH (07:26)
[2020-09-09] MEDS: PANTOprazole 40 MG TAB PO SCH (07:26)
[2020-09-09] MEDS: METOPROLOL TARTRATE 50 MG TAB PO SCH (07:27)
[2020-09-09] MEDS: prednisoLONE SYRUP 15 MG/5 ML BTL PO SCH (07:28)
[2020-09-09] MEDS: CHOLESTYRAMINE LIGHT 4 GM PKT PO SCH (08:09)
[2020-09-09 08:11] LABS: Hepatitis A Antibody IgM NON-REACTIVE (NON-REACTIVE); Hepatitis B Core Antibody IgM NON-REACTIVE (NON-REACTIVE)
[2020-09-09] MEDS ORDERED: CYANOCOBALAMIN 500 MCG TABLET (VITAMIN B-12) PO SCH (09:00)
[2020-09-09 09:26] LABS: Albumin Globulin Ratio 0.4 (0.9-2); Albumin Level 1.8 gm/dl (3.4-5.0); BUN Creatinine Ratio 13.2 (10-20); Bilirubin,Total 7.8 mg/dl (0.2-1); Calcium 8.1 mg/dl (8.5-10.1); Creatinine Clr Calc Pharmacy 130.3 ml/min; Est GFR (African American) 111.9; Est GFR (Non-African American) 96.6; Globulin 4.8 gm/dl (2.5-4.0); Potassium 3.5 mmol/L (3.5-5.1); Total Protein 6.6 gm/dl (6.4-8.2)
--- NOTE | 2020-09-09 17:15 | Discharge Summary ---
Date of Service September 09, 2020 Admission HPI Per Admitting Provider 'This is a pleasant 50 yo male who presents with jaundice and generalized pruritus. He reports PMH of gout. He reports having a "tolerance" to drink. He reports that he has drank more over the course of this past year starting from December 2019. He states it is difficult to quantify how much he drinks, but reports having 4 drinks of vodka in a 16 ounce glass. 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 He reports that once he realized he was becoming yellow, he stopped drinking 6 weeks This was accompanied by generalized pruritis. Given how his symptoms have not improved, he decided to come into the hospital Principal Diagnosis alcoholic hepatitis jaundice pruritus Discharge Exam The patient appeared well scleral icterus Vital signs as documented. Lungs are clear to auscultation and appear unlabored Cardiac exam, Rhythm is regular.. No murmurs, rubs or gallops. Abdominal exam reveals normal bowel sounds, soft distended and dull Extremities are nonedematous and both pedal pulses are normal. Neurologic exam is alert and oriented, no focal loss of strength or sensation Skin is with jaundice Psychologically is without concerns for anxiety or depression. Discharge Data Allergies Allergy/AdvReac Type Severity Reaction Status Date / Time No Known Allergies Allergy Verified 09/07/20 15:31 Consultations 09/07/20 15:44 ED Decision to Admit Stat 09/07/20 16:51 Consult Gastroenterology Routine Ordered Studies 09/07/20 13:02 CT abd pelvis IV con only Stat Hospital Course (1) Alcoholic hepatitis: 50 yo male who drank heavily for the past year developed. Patient Has a an elevated Maddrey score in the 40s. MELD score is showing 3 mortality: 20% patient states he has not had a drink for over 2 weeks. Started on prednisolone 40 mg daily, consult GI recommends to continue prednisolone and check labs in one week if continues to improve continue if not will stop, will have labs in one week and follow up with [facility] GI medicine CT abdomen and pelvis shows nodular liver consistent with cirrhosis and splenomegaly (2) Hypertension: BP at goal.remains on metoprolol (3) History of alcohol abuse: no signs of withdrawal. if truely stopped drinking 2 weeks ago past risk of significant withdrawal Total Time Total Time Spent Total Time Spent (In Minutes): it took greater than 30 minutes to complete discharge summary Discharge Plan Discharge Items Patient Disposition: Home - Self-Care Reason For Visit: ALCOHOL HEPATITIS Discharge Diagnosis: alcohol induced hepatitis Condition on Discharge: Good Activity: Resume your previous activity Non-emergency contact: Primary Care Provider and [facility] Call non-emergency contact if: you have any medication questions and your symptoms worsen Follow-up/Referrals: Marino Mccullough CRNP [Nurse Practitioner] - 09/14/20 9:00 am Diet: Low Sodium (2gm) Ambulatory Orders: Comprehensive Metabolic Panel (Routine) Timeframe: 1 Week Location: Determined by Patient Ordered By: Pedro Hutchison Attending Provider Instructions: Alcoholic hepatitis is a diseased, inflammatory condition of the liver caused by heavy alcohol consumption over an extended period of time. It's also aggravated by binge drinking and ongoing alcohol use. If you develop this condition, you must stop drinking alcohol.The only hope to improve is complete abstinence from alcohol all of your blood work has improved as of the day of discharge please contact the [facility] office to arrange for outpt blood work Pending Studies at Discharge: No Stand-Alone Forms: [facility], Smoking Cessation Medications and DC Order Prescriptions: New Cholestyramine Light 4 gram Powder In Packet 4 g PO BID@1000,2200 Qty: 30 RF: 0 prednisolone 15 mg/5 mL Solution 45 mg PO DAILY Qty: 480 RF: 0 zolpidem [Ambien] 5 mg tablet 5 mg PO HS PRN (Reason: insomnia) Qty: 10 RF: 0 Continued metoprolol tartrate 50 mg tablet 50 mg PO BID RF: 0 allopurinol 300 mg tablet 300 mg PO HS RF: 0 colchicine 0.6 mg tablet 0 mg PO DIRECTED PRN (Reason: GOUT FLARE UPS) RF: 0 Discontinued prednisone 10 mg tablet 0 mg PO DIRECTED PRN (Reason: GOUT FLARE UPS) RF: 0 Discharge Orders: Discharge Order (Routine); Ordered 09/09/20 Ordered By: Pedro Amezcua/Other Patient Handouts: Low Salt Diet Dc Admission Data Admit Date/Time: 09/07/20 16:57 Attending Provider: Pedro Byrne Admit Provider: Iraj Kinsey Primary Care Provider: PCP,NO Other Providers: Iraj Kinsey ; Ben Phillips Other Interventions: Discharge Summary Assessment (RN) Last Done: 09/09/20 10:39 Coding Level of Care Code D/C Day Management >30 mins Diagnoses Alcoholic hepatitis K70.10 Hypertension I10 History of alcohol abuse F10.11
== END 2020-09-09 11:20 | disposition home or self-care (01) | DRG 434 ==
LOC: ED 12:44 → INTOOBSV 16:57 → OBSVTOIN 16:57 → 2N 16:57 → SUATTDRO 16:57 → 2N 17:33

== ENCOUNTER 2020-09-17 21:03 | Inpatient (IN) ==
[2020-09-17] MEDS ORDERED: ONDANSETRON INJ 2 MG/ML 2 ML VIAL IV STA (21:20)
[2020-09-17] MEDS ORDERED: KETOROLAC TROMETHAMINE 15 MG/ML VIAL IV STA (21:20)
[2020-09-17] MEDS ORDERED: SODIUM CHLORIDE 0.9% 1000ML 1,000 ML IV ONE (21:20)
[2020-09-17 22:04] LABS: Basophils # (auto) 0.01 K/uL (0-0.2); Basophils % (auto) 0.1 %; Eosinophils # (auto) 0.14 K/uL (0-0.5); Hematocrit (blood only) 38.7 % (42-52); Hemoglobin 13.6 g/dL (14.0-18.0); Immature Granulocytes # (auto) 0.07 K/uL (0.00-0.02); Immature Granulocytes % (auto) 0.5 %; Lymphocytes # (auto) 1.38 K/uL (1.2-3.4); Lymphocytes % (auto) 10.2 %; Mean Corpuscular Hemoglobin 33.3 pg (25-34); Mean Corpuscular Hgb Conc 35.1 g/dL (32-36); Mean Corpuscular Volume 94.9 fL (80-100); Mean Platelet Volume 11.1 fL (7.4-10.4); Monocytes # (auto) 2.37 K/uL (0.11-0.59); Monocytes % (auto) 17.5 %; Neutrophils # (auto) 9.54 K/uL (1.4-6.5); Neutrophils % (auto) 70.7 %; Platelet Count 210 K/uL (130-400); RDW Coefficient of Variation 16.8 % (11.5-14.5); RDW Standard Deviation 57.7 fL (36.4-46.3); Red Blood Count 4.08 M/uL (4.7-6.1); White Blood Count 13.51 K/uL (4.8-10.8)
[2020-09-17 22:17] LABS: INR 1.5 (0.9-1.1); Partial Thromboplastin Time 25.2 Seconds (21.0-31.0); Prothrombin Time 14.7 Seconds (9.0-12.0)
[2020-09-17 22:30] LABS: Albumin Level 2.4 gm/dl (3.4-5.0); BUN Creatinine Ratio 16.3 (10-20); Bilirubin Direct 5.8 mg/dl (0-0.2); Bilirubin,Total 8.8 mg/dl (0.2-1); Calcium 8.7 mg/dl (8.5-10.1); Creatinine Clr Calc Pharmacy 102.2 ml/min; Est GFR (African American) 84.3; Est GFR (Non-African American) 72.8; Potassium 3.5 mmol/L (3.5-5.1); Total Protein 7.6 gm/dl (6.4-8.2)
--- NOTE | 2020-09-17 23:39 | History & Physical Report ---
Date of Service September 17, 2020 Assessment & Plan (1) Pancreatitis: Acute interstitial pancreatitis- Noted on CT of abdomen and pelvis. Lipase upon admission 28,812. Follow serial lipase every morning N.p.o. except medications Received 1 L normal saline in ED, and will add a second liter now. NSS plus KCl 20 mEq at 150 mils per hour Consult gastroenterology Present on Admission?: Yes (2) Gout: Allopurinol 300 mg daily Present on Admission?: Yes (3) Hypertension: Metoprolol tartrate 50 mg p.o. twice daily with hold parameters Present on Admission?: Yes (4) Alcoholic hepatitis: Continue prednisone/prednisolone 45 mg p.o. daily Liver test similar to recent discharge labs MELD score 21 MELDNa score 22 Follow serial CHEM/liver profile Consult gastroenterology Present on Admission?: Yes (5) History of alcohol abuse: Reports abstinence x1 month Present on Admission?: Yes (6) Coagulopathy: INR will mildly worsened from 1.4-1.5 Follow serially Present on Admission?: Yes History of Present Illness Chief Complaint: The patient presents to the emergency department with epigastric and left-sided abdominal pain, diarrhea and noted recent admission for alcoholic hepatitis Primary Care Provider: DAPHNIE Mart The patient is a 50-year-old male with a past medical history including alcoholic hepatitis, alcohol abuse, gout, hypertension, insomnia, elevated bilirubin and jaundice. He was most recently mid to [facility] from 09/07- 09/09/2020 for treatment of alcoholic hepatitis, which time he was discharged on additional medication prednisolone, which is presently at 45 mg daily. He developed 2 days of epigastric and left-sided abdominal pain, and left flank pain. He denies alcohol use in the past month. Significant laboratories: WBC 13.51, hemoglobin 13.6, hematocrit 38.7, INR 1.5, total bilirubin 8.8, direct bilirubin 5.8, AST 151, ALT 146, ammonia 53.3, albumin 2.4, lipase 28,812. CT scan of abdomen and pelvis: Acute interstitial pancreatitis Allergies Allergy/AdvReac Type Severity Reaction Status Date / Time No Known Drug Allergies Allergy Verified 09/17/20 21:56 Home Medications Medication Instructions Recorded Confirmed Type allopurinol 300 mg PO HS 09/07/20 09/17/20 History colchicine 0 mg PO DIRECTED PRN 09/07/20 09/17/20 History metoprolol tartrate 50 mg PO BID 09/07/20 09/17/20 History cholestyramine-aspartame 4 g PO BID@1000,2200 #30 ea 09/09/20 09/17/20 Rx [Cholestyramine Light] prednisolone 45 mg PO DAILY #480 ml 09/09/20 09/17/20 Rx zolpidem [Ambien] 5 mg PO HS PRN #10 tab 09/09/20 09/17/20 Rx aluminum hydrox-magnesium carb 2 tab PO QAM 09/17/20 09/17/20 History [Gaviscon] bismuth subsalicylate 524 mg PO QID PRN 09/17/20 09/17/20 History [Pepto-Bismol] Past Med/Surg History Medical History Elevated bilirubin Gout History of alcohol abuse Jaundice Surgical History H/O knee surgery left x 2 No pertinent past surgical history Family History Family/Other Myocardial infarction patient notes several [place] on father and mothers side Mother Kidney disease Grandmother (Paternal) Diabetes Grandfather (Maternal) Black lung Grandfather No problems noted. Grandfather (Paternal) Black lung Uncle Black lung Denies family history of Ovarian cancer Prostate cancer Breast cancer Colorectal cancer Social History Smoking Status: Never smoker Hx Alcohol Use: Yes Alcohol type: hard liquor Hx Substance Use: No Preferred Language: Occitan Communication Ability: Effective Visual Impairment: No Limitations Hearing Ability: Normal Buzzsaw Operator Required: No Beliefs That Will Affect Care: None and Denominational Denominational Beliefs: Pt would like last rites marital status: Current Living Situation: Family current occupational status: employed Other Information That Helps Us Care for You: No Feels Safe at Home: Yes Safety Concerns: Feels Safe At This Time Diet Comment: well balanced diet caffeine: No during the past year weight has: remained stable Dental Care, Regularly: No Physical Activity Frequency: Other Seatbelt Use: always Sunscreen Use: Yes Assistive Devices: Denture - Upper and Glasses Review of Systems Review of Systems: The patient denies chest pain, palpitations, shortness of breath, dyspnea on exertion, cough, lower extremity swelling, sore throat, fevers, chills, sweats, nausea, vomiting, blood in urine or stool, dysuria, urinary frequency or urgency, lightheadedness, dizziness, headache, memory loss, loss of consciousness, rash, abnormal bruising or bleeding, imbalance, focal or generalized weakness, numbness or tingling in arms or legs, generalized arthralgias or myalgias, neck pain, or night sweats. The review of systems is otherwise negative other than for that already noted above, and at least 10 systems have been reviewed. Physical Exam Physical Exam: The patient is awake, alert and oriented 3, normocephalic and atraumatic, lying in bed and in no acute distress. HEENT--PERRL, EOMI, mucous membranes and oropharynx dry. Neck--supple. No JVD. No bruits. Thyroid normal, trachea midline, no adenopathy. Heart--normal S1 and S2. No murmurs, rubs or gallops. Lungs--clear bilaterally, no respiratory distress, no accessory muscle use. Abdomen--normal bowel sounds and soft. Tender left abdomen and flank. Mildly distended. Extremities--no cyanosis or clubbing. No edema. Dermatologic--normal skin turgor, normal color, no abnormal lymph nodes, no rash. Neurologic--cranial nerves II through XII grossly intact. Rheumatologic--normal range of motion. Psychiatric--normal affect. Results & Data Results & Data ([facility]) Vital Signs (Past 12 Hours) Vital Signs Temp Pulse Resp BP Pulse Ox 09/17/20 22:30 71 20 118/57 L 98 09/17/20 22:00 75 21 138/68 99 09/17/20 21:33 99 09/17/20 21:09 99.1 F 84 18 145/88 H 98 Laboratory Results Laboratory Results WBC 13.51 K/uL (4.8-10.8) H 09/17/20 21:53 RBC 4.08 M/uL (4.7-6.1) L 09/17/20 21:53 Hgb 13.6 g/dL (14.0-18.0) L 09/17/20 21:53 Hct 38.7 % (42-52) L 09/17/20 21:53 MCV 94.9 fL (80-100) 09/17/20 21:53 MCH 33.3 pg (25-34) 09/17/20 21:53 MCHC 35.1 g/dL (32-36) 09/17/20 21:53 RDW Std Deviation 57.7 fL (36.4-46.3) H 09/17/20 21:53 RDW Coeff of Liliya 16.8 % (11.5-14.5) H 09/17/20 21:53 Plt Count 210 K/uL (130-400) 09/17/20 21:53 MPV 11.1 fL (7.4-10.4) H 09/17/20 21:53 Immature Gran % (Auto) 0.5 % 09/17/20 21:53 Neut % (Auto) 70.7 % 09/17/20 21:53 Lymph % (Auto) 10.2 % 09/17/20 21:53 [place] % (Auto) 17.5 % 09/17/20 21:53 Eos % (Auto) 1.0 % 09/17/20 21:53 Baso % (Auto) 0.1 % 09/17/20 21:53 Neut # (Auto) 9.54 K/uL (1.4-6.5) H 09/17/20 21:53 Lymph # (Auto) 1.38 K/uL (1.2-3.4) 09/17/20 21:53 [place] # (Auto) 2.37 K/uL (0.11-0.59) H 09/17/20 21:53 Eos # (Auto) 0.14 K/uL (0-0.5) 09/17/20 21:53 Baso # (Auto) 0.01 K/uL (0-0.2) 09/17/20 21:53 Immature Gran # (Auto) 0.07 K/uL (0.00-0.02) H 09/17/20 21:53 PT 14.7 Seconds (9.0-12.0) H 09/17/20 21:53 INR 1.5 (0.9-1.1) H 09/17/20 21:53 APTT 25.2 Seconds (21.0-31.0) 09/17/20 21:53 PTT Ratio 1.0 09/17/20 21:53 Sodium 136 mmol/L (136-145) 09/17/20 21:53 Potassium 3.5 mmol/L (3.5-5.1) 09/17/20 21:53 Chloride 108 mmol/L (98-107) H 09/17/20 21:53 Carbon Dioxide 20 mmol/L (21-32) L 09/17/20 21:53 Anion Gap 8.0 (3-11) 09/17/20 21:53 BUN 19 mg/dl (7-18) H 09/17/20 21:53 Creatinine 1.15 mg/dl (0.6-1.4) 09/17/20 21:53 Est Cr Clr Drug Dosing 102.2 ml/min 09/17/20 21:53 Est GFR ( Amer) 84.3 09/17/20 21:53 Est GFR (Non-Af Amer) 72.8 09/17/20 21:53 BUN/Creatinine Ratio 16.3 (10-20) 09/17/20 21:53 Glucose 129 mg/dl (70-99) H 09/17/20 21:53 Calcium 8.7 mg/dl (8.5-10.1) 09/17/20 21:53 Total Bilirubin 8.8 mg/dl (0.2-1) H 09/17/20 21:53 Direct Bilirubin 5.8 mg/dl (0-0.2) H 09/17/20 21:53 AST 151 U/L (15-37) H 09/17/20 21:53 ALT 146 U/L (12-78) H 09/17/20 21:53 Alkaline Phosphatase 176 U/L (45-117) H 09/17/20 21:53 Ammonia 53.3 umol/L (11-32) H 09/17/20 21:53 Total Protein 7.6 gm/dl (6.4-8.2) 09/17/20 21:53 Albumin 2.4 gm/dl (3.4-5.0) L 09/17/20 21:53 Lipase 66258 U/L (73-393) H 09/17/20 21:53 COVID-19 Eval Order CovFluRsv at [facility] 09/17/20 22:43 SARS-CoV-2 (PCR) NEGATIVE (Negative) 09/17/20 22:43 Influenza Type A (PCR) Negative (Neg) 09/17/20 22:43 Influenza Type B (PCR) Negative (Neg) 09/17/20 22:43 RSV (RT-PCR) Negative (Neg) 09/17/20 22:43 Diagnostic Findings [facility] Patient: ANASTASIYA LI (Male) : 66 Status: ER Date: 09/17/20 23:49 Room #: History: abdominal pain, appendix present Slices: [phone] Priors: Tech: Caroline Ventura @ [phone] Exams: CT ABDOMEN & PELVIS With Contrast Contrast: IV Amt: 89 cc's Accession Numbers: [id number] Preliminary Findings Only See Final Report For Complete Findings CT ABDOMEN & PELVIS With Contrast: Acute interstitial pancreatitis. Mild inflammatory changes. No parenchymal necrosis or radiopaque obstructing stone. Small cystic lesion within the neck measuring 8 mm. Small volume free fluid within the abdomen and pelvis. Remainder of the solid organs and GI tract are unremarkable. Radiologist: Meño Ny MD Study ready at 23:51 and initial results transmitted at 00:11 *This report constitutes a preliminary interpretation only. Non-acute findings felt to be unrelated to the clinical presentation may not be discussed in this report. The study will be interpreted and a final report will be generated by the local Radiologist the following shift. To reach the hospital radiology department call [phone]. If a discrepancy is found between the preliminary and final interpretations of this study, please notify us via our Client Portal at [email or web address], under QA Exams.You can also fax this report with a description of the discrepancy, or include the final report, to our daytime fax number [phone].If faxing, please indicate the severity of discrepancy using one of the following categories: [ ] 1 - Agree/Informational [ ] 2 - Unlikely to Affect Management [ ] 3 - Possible Eventual Change of Management [ ] 4 - Probable Immediate Change of Management For all other patient related information, please fax us at [phone]. [id number] Code Status & VTE Plan Code Status Full code VTE Prophylaxis Plan VTE Prophylaxis will be ordered: Yes PG Care Time/CCT Total # of Minutes Spent Total Time Spent with Patient: Total time spent is greater than 50% in coordination of care (as documented) at patient's floor/unit and/or counseling patient: Coding Level of Care Code 24377 Initial Inpt Care Lvl 3 Diagnoses Pancreatitis K85.90 Acute pancreatitis complication: unspecified Chronicity: acute Pancreatitis type: unspecified pancreatitis type Gout M10.9 Hypertension I10 Alcoholic hepatitis K70.10 History of alcohol abuse F10.11 Coagulopathy D68.9 (1) Pancreatitis Acute pancreatitis complication: unspecified Chronicity: acute Pancreatitis type: unspecified pancreatitis type Qualified Code(s): K85.90 - Acute pancreatitis without necrosis or infection, unspecified
[2020-09-17] MEDS ORDERED: SODIUM CHLORIDE 0.9% 1000ML 1,000 ML IV SCH (23:40)
[2020-09-17 23:41] LABS: Influenza A virus by PCR Negative (Neg); Influenza B virus by PCR Negative (Neg); RSV by PCR Negative (Neg); SARS CoV2 RNA(COVID-19) InHosp NEGATIVE (Negative)
[2020-09-17] MEDS ORDERED: OPTIRAY 300 100mL IV ONE (23:50)
--- NOTE | 2020-09-18 00:19 | Emergency Department Note ---
History of Present Illness General Chief Complaint: Abdominal Pain Stated Complaint: EPIGASTRIC PAIN Time Seen by Provider: 09/17/20 21:20 History of Present Illness Provider Complaint: abdominal pain Onset (ago): 2 day(s) Pain Consistency: constant Location: diffuse Severity: moderate Maximum Pain Intensity: 7 Current Pain Intensity: 7 Quality: + stabbing, + aching, + sharp and + dull Relieved By: + nothing Exacerbated By: + nothing Associated Symptoms: + diarrhea; no nausea, no vomiting, no fever, no chills, no constipation, no dysuria, no hematemesis, no hematochezia, no melena, no hematuria, no syncope, no headache, no back pain, no chest pain, no weakness, no breathing difficulty and no numbness Patient states that he was recently admitted to the hospital for alcoholic hepatitis. He states he was placed on prednisone daily for the alcoholic hepatitis by Gloria VIDAL. He states he is scheduled to follow-up with Gloria VIDAL next month. Patient states he has not had a drink in the last month. Home Medications Medication Instructions Recorded Confirmed Type allopurinol 300 mg PO HS 09/07/20 09/17/20 History colchicine 0 mg PO DIRECTED PRN 09/07/20 09/17/20 History metoprolol tartrate 50 mg PO BID 09/07/20 09/17/20 History cholestyramine-aspartame 4 g PO BID@1000,2200 #30 ea 09/09/20 09/17/20 Rx [Cholestyramine Light] prednisolone 45 mg PO DAILY #480 ml 09/09/20 09/17/20 Rx zolpidem [Ambien] 5 mg PO HS PRN #10 tab 09/09/20 09/17/20 Rx aluminum hydrox-magnesium carb 2 tab PO QAM 09/17/20 09/17/20 History [Gaviscon] bismuth subsalicylate 524 mg PO QID PRN 09/17/20 09/17/20 History [Pepto-Bismol] Allergies Allergy/AdvReac Type Severity Reaction Status Date / Time No Known Drug Allergies Allergy Verified 09/17/20 21:56 Past Med/Surg History Medical History Elevated bilirubin Gout History of alcohol abuse Jaundice Surgical History H/O knee surgery left x 2 No pertinent past surgical history Family History Family/Other Myocardial infarction patient notes several IA on father and mothers side Mother Kidney disease Grandmother (Paternal) Diabetes Grandfather (Maternal) Black lung Grandfather No problems noted. Grandfather (Paternal) Black lung Uncle Black lung Denies family history of Ovarian cancer Prostate cancer Breast cancer Colorectal cancer Social History Smoking Status: Unknown if ever smoked Hx Alcohol Use: Yes Hx Substance Use: No Preferred Language: Cuban Communication Ability: Effective Visual Impairment: No Limitations Hearing Ability: Normal Sheep Or Calf Grader Required: No Beliefs That Will Affect Care: None marital status: Current Living Situation: Family current occupational status: employed Feels Safe at Home: Yes Diet Comment: well balanced diet caffeine: No during the past year weight has: remained stable Dental Care, Regularly: No Physical Activity Frequency: Other Seatbelt Use: always Sunscreen Use: Yes Assistive Devices: None Review of Systems A total of 10 systems reviewed and were otherwise negative Physical Exam Vital Signs: Vital Signs - 24 hr 09/17/20 21:09 09/17/20 21:33 09/17/20 22:00 Temperature 37.3 C Temperature Source Temporal Artery Sc an Pulse Rate 84 75 Pulse Rate from Sp O2 Sensor 77 Respiratory Rate 18 21 Respiratory Effort / Characteristics Non-Labored Sponta neous Respiratory Depth Normal Respiratory Patter n Regular Blood Pressure 145/88 H 138/68 Blood Pressure Lianna n 107 91 Blood Pressure Pos ition Sitting Pulse Oximetry 98 99 99 Oxygen Delivery Me thod Room Air Room Air Room Air Sepsis Recent Feve r Within 48 Hours No Sepsis New/Unexpla ined Change in Men vicente Status No Sepsis Action Take n by Nursing No Action Required 09/17/20 22:30 09/17/20 23:00 Temperature Temperature Source Pulse Rate 71 69 Pulse Rate from Sp O2 Sensor 71 69 Respiratory Rate 20 15 Respiratory Effort / Characteristics Respiratory Depth Respiratory Patter n Blood Pressure 118/57 L 129/86 Blood Pressure Lianna n 77 100 Blood Pressure Pos ition Pulse Oximetry 98 99 Oxygen Delivery Me thod Room Air Room Air Sepsis Recent Feve r Within 48 Hours Sepsis New/Unexpla ined Change in Men vicente Status Sepsis Action Take n by Nursing Physical Exam: Physical Exam GENERAL: He is oriented to person, place, and time. He appears well-developed a nd well-nourished. He does not appear distressed. HENT: Exam performed. - Head: Normocephalic and atraumatic. - Right Ear: External ear normal. No mastoid tenderness. - Left Ear: External ear normal. No mastoid tenderness. - Mouth/Throat: The oropharynx is clear and moist. No trismus in the jaw. No dental abscesses or uvula swelling. No oropharyngeal exudate or tonsillar abscesses. EYES: Conjunctivae and EOM are normal. Pupils are equal, round, and reactive to light. Right eye exhibits no discharge. Left eye exhibits no discharge. scleral icterus bilaterally NECK: Normal range of motion. Neck supple. No JVD present. No spinous process tenderness present. No carotid bruit present. No rigidity. No tracheal deviation and normal range of motion present. No Brudzinski's sign and no Kernig's sign noted. CV: Normal rate, regular rhythm, normal heart sounds and intact distal pulses. There is no peripheral edema. Palpable radial pulses bue. PULM/CHEST: Effort normal and breath sounds normal. No respiratory distress. No stridor. He has no wheezes. He has no rales. - Chest Wall: He exhibits no tenderness. ABD: The abdomen is soft. Bowel sounds are normal. He has no distension. No mass is present. There is diffuse tenderness to palpation. There is no rebound, no guarding, no Fuentes's sign and no tenderness at McBurney's point. Rovsig negative. MUSC/SKEL: Normal range of motion. There is no peripheral edema, tenderness or deformity. LYMPH: No cervical adenopathy. NEURO: He is alert and oriented to person, place, and time. He has normal strength. No cranial nerve deficit or sensory deficit. Coordination and gait normal. GCS eye subscore is 4. GCS verbal subscore is 5. GCS motor subscore is 6. Cerebellar tests wnl. No asterixis. SKIN: Patient is jaundiced. PSYCH: He has a normal mood and affect. Behavior is normal. Judgment and thought content normal. Course Course 2119: The patient was evaluated in room C1. A complete history and physical exam was performed Cardiac monitoring: An order was placed for continuous cardiac monitoring. The monitor shows a rate of 80 with sinus rhythm EMR reviewed. Patient was admitted to the hospital from September 07 to September 09, 2020. He was diagnosed with alcoholic hepatitis. He was started on prednisone 40 mg daily at the request of GI. 0023: Vital signs stable. Labs show leukocytosis of 13.5. This is most likely due to his prednisone usage over the last 2 weeks. AST 151 ALT 146. Alkaline phosphatase 176. Ammonia 53.3. Patient has no evidence of encephalopathy. Total bilirubin 8.8 up from 7.7 on September 15, 2020. Direct bilirubin 5.8. Lipase elevated ,812. CT showed pancreatitis. [facility]. Romero. Is thought that the patient's pancreatitis could be due to his steroid usage. Administered Medications Discontinued Medications Sodium Chloride (Nss 1000ml) 1,000 mls @ 999 mls/hr IV .Q1H1M ONE Stop: 09/17/20 22:20 Last Infusion: 09/17/20 23:12 Dose: 0 mls/hr Documented by: [id number] Admin: 09/17/20 22:07 Dose: 999 mls/hr Documented by: [id number] Ioversol (Optiray 300 100ml) 89 ml IV ONCE ONE Stop: 09/17/20 23:51 Last Admin: 09/17/20 23:50 Dose: 89 ml Documented by: [id number] Ketorolac Tromethamine (Ketorolac Tromethamine 15 Mg/Ml Vial) 15 mg IV NOW STA Stop: 09/17/20 21:21 Last Admin: 09/17/20 22:07 Dose: 15 mg Documented by: [id number] Ondansetron HCl (Ondansetron Inj 2 Mg/Ml 2 Ml Vial) 4 mg IV NOW STA Stop: 09/17/20 21:21 Last Admin: 09/17/20 22:07 Dose: 4 mg Documented by: [id number] Medical Decision Making Laboratory Data Result diagrams: 09/17/20 21:53 09/17/20 21:53 Lab Results 09/17/20 09/17/20 09/17/20 Range/Units 21:53 21:53 21:53 WBC 13.51 H (4.8-10.8) K/uL RBC 4.08 L (4.7-6.1) M/uL Hgb 13.6 L (14.0-18.0) g/dL Hct 38.7 L (42-52) % MCV 94.9 (80-100) fL MCH 33.3 (25-34) pg MCHC 35.1 (32-36) g/dL RDW Std Deviation 57.7 H (36.4-46.3) fL RDW Coeff of Liliya 16.8 H (11.5-14.5) % Plt Count 210 (130-400) K/uL MPV 11.1 H (7.4-10.4) fL Immature Gran % (Auto) 0.5 % Neut % (Auto) 70.7 % Lymph % (Auto) 10.2 % [place] % (Auto) 17.5 % Eos % (Auto) 1.0 % Baso % (Auto) 0.1 % Neut # (Auto) 9.54 H (1.4-6.5) K/uL Lymph # (Auto) 1.38 (1.2-3.4) K/uL [place] # (Auto) 2.37 H (0.11-0.59) K/uL Eos # (Auto) 0.14 (0-0.5) K/uL Baso # (Auto) 0.01 (0-0.2) K/uL Immature Gran # (Auto) 0.07 H (0.00-0.02) K/uL PT 14.7 H (9.0-12.0) Seconds INR 1.5 H (0.9-1.1) APTT 25.2 (21.0-31.0) Seconds PTT Ratio 1.0 Sodium 136 (136-145) mmol/L Potassium 3.5 (3.5-5.1) mmol/L Chloride 108 H (98-107) mmol/L Carbon Dioxide 20 L (21-32) mmol/L Anion Gap 8.0 (3-11) BUN 19 H (7-18) mg/dl Creatinine 1.15 (0.6-1.4) mg/dl Est Cr Clr Drug Dosing 102.2 ml/min Est GFR ( Amer) 84.3 Est GFR (Non-Af Amer) 72.8 BUN/Creatinine Ratio 16.3 (10-20) Glucose 129 H (70-99) mg/dl Calcium 8.7 (8.5-10.1) mg/dl Total Bilirubin 8.8 H (0.2-1) mg/dl Direct Bilirubin 5.8 H (0-0.2) mg/dl AST 151 H (15-37) U/L ALT 146 H (12-78) U/L Alkaline Phosphatase 176 H (45-117) U/L Ammonia (11-32) umol/L Total Protein 7.6 (6.4-8.2) gm/dl Albumin 2.4 L (3.4-5.0) gm/dl Lipase 30607 H (73-393) U/L COVID-19 Eval Order SARS-CoV-2 (PCR) (Negative) Influenza Type A (PCR) (Neg) Influenza Type B (PCR) (Neg) RSV (RT-PCR) (Neg) 09/17/20 09/17/20 09/17/20 Range/Units 21:53 22:43 22:43 WBC (4.8-10.8) K/uL RBC (4.7-6.1) M/uL Hgb (14.0-18.0) g/dL Hct (42-52) % MCV (80-100) fL MCH (25-34) pg MCHC (32-36) g/dL RDW Std Deviation (36.4-46.3) fL RDW Coeff of Liliya (11.5-14.5) % Plt Count (130-400) K/uL MPV (7.4-10.4) fL Immature Gran % (Auto) % Neut % (Auto) % Lymph % (Auto) % [place] % (Auto) % Eos % (Auto) % Baso % (Auto) % Neut # (Auto) (1.4-6.5) K/uL Lymph # (Auto) (1.2-3.4) K/uL [place] # (Auto) (0.11-0.59) K/uL Eos # (Auto) (0-0.5) K/uL Baso # (Auto) (0-0.2) K/uL Immature Gran # (Auto) (0.00-0.02) K/uL PT (9.0-12.0) Seconds INR (0.9-1.1) APTT (21.0-31.0) Seconds PTT Ratio Sodium (136-145) mmol/L Potassium (3.5-5.1) mmol/L Chloride (98-107) mmol/L Carbon Dioxide (21-32) mmol/L Anion Gap (3-11) BUN (7-18) mg/dl Creatinine (0.6-1.4) mg/dl Est Cr Clr Drug Dosing ml/min Est GFR ( Amer) Est GFR (Non-Af Amer) BUN/Creatinine Ratio (10-20) Glucose (70-99) mg/dl Calcium (8.5-10.1) mg/dl Total Bilirubin (0.2-1) mg/dl Direct Bilirubin (0-0.2) mg/dl AST (15-37) U/L ALT (12-78) U/L Alkaline Phosphatase (45-117) U/L Ammonia 53.3 H (11-32) umol/L Total Protein (6.4-8.2) gm/dl Albumin (3.4-5.0) gm/dl Lipase (73-393) U/L COVID-19 Eval Order CovFluRsv at [facility] SARS-CoV-2 (PCR) NEGATIVE (Negative) Influenza Type A (PCR) Negative (Neg) Influenza Type B (PCR) Negative (Neg) RSV (RT-PCR) Negative (Neg) Imaging Data Radiologist's Impression: Preliminary Findings Only See Final Report For Complete Findings CT ABDOMEN & PELVIS With Contrast: Acute interstitial pancreatitis. Mild inflammatory changes. No parenchymal necrosis or radiopaque obstructing stone. Small cystic lesion within the neck measuring 8 mm. Small volume free fluid within the abdomen and pelvis. Remainder of the solid organs and GI tract are unremarkable. Radiologist: Mñeo Ny MD Study ready at 23:51 and initial results transmitted at 00:11 [facility] Narrative 2119: The patient was evaluated in room C1. A complete history and physical exam was performed Cardiac monitoring: An order was placed for continuous cardiac monitoring. The monitor shows a rate of 80 with sinus rhythm EMR reviewed. Patient was admitted to the hospital from September 07 to September 09, 2020. He was diagnosed with alcoholic hepatitis. He was started on prednisone 40 mg daily at the request of GI. 0023: Vital signs stable. Labs show leukocytosis of 13.5. This is most likely due to his prednisone usage over the last 2 weeks. AST 151 ALT 146. Alkaline phosphatase 176. Ammonia 53.3. Patient has no evidence of encephalopathy. Total bilirubin 8.8 up from 7.7 on September 15, 2020. Direct bilirubin 5.8. Lipase elevated 28,812. CT showed pancreatitis. Patient was admitted to the [facility] hospitalist team Dr. Romero. Is thought that the patient's pancreatitis could be due to his steroid usage. Impression & Plan Pancreatitis Discharge Plan Visit Data Chief Complaint: Abdominal Pain Stated Complaint: EPIGASTRIC PAIN ED Provider: Charles Ayala Discharge Problem: Pancreatitis Patient Disposition: Admitted As Inpatient Discharge Instructions Interventions: ED Discharge Assessment Last Done: 09/18/20 00:04 Forms Stand Alone Forms: My [facility] Prescriptions Prescriptions: No Action bismuth subsalicylate [Pepto-Bismol] 262 mg/15 mL Suspension 524 mg PO QID PRN (Reason: gastric upset) RF: 0 Gaviscon 160-105 mg Tablet,Chewable 2 tab PO QAM RF: 0 metoprolol tartrate 50 mg tablet 50 mg PO BID RF: 0 allopurinol 300 mg tablet 300 mg PO HS RF: 0 colchicine 0.6 mg tablet 0 mg PO DIRECTED PRN (Reason: GOUT FLARE UPS) RF: 0 Cholestyramine Light 4 gram Powder In Packet 4 g PO BID@1000,2200 Qty: 30 RF: 0 prednisolone 15 mg/5 mL Solution 45 mg PO DAILY Qty: 480 RF: 0 zolpidem [Ambien] 5 mg tablet 5 mg PO HS PRN (Reason: insomnia) Qty: 10 RF: 0 Referrals Referrals: Marino Mccullough CRNP [Primary Care Provider] - Discharge Problem: Pancreatitis Qualifiers: Chronicity: acute Pancreatitis type: unspecified pancreatitis type Acute pancreatitis complication: unspecified Qualified Code(s): K85.90 - Acute pancreatitis without necrosis or infection, unspecified
[2020-09-18] MEDS ORDERED: ONDANSETRON INJ 2 MG/ML 2 ML VIAL IV PRN (00:27)
[2020-09-18] MEDS ORDERED: BISMUTH SUBSALICYLATE SUSP PO PRN (00:27)
[2020-09-18] MEDS ORDERED: HYDROCORTISONE SOD SUCCINATE 100 MG/2 ML VIAL IV SCH (00:27)
[2020-09-18] MEDS ORDERED: HYDROCORTISONE SOD 100 MG in SYRINGE 0 ML IV SCH (01:00)
[2020-09-18] MEDS: NSS + 20MEQ KCL 20 MEQ/1,000 ML BAG IV SCH ×4 (01:23→23:33)
[2020-09-18] MEDS: ZOLPIDEM TARTRATE 5 MG TAB PO PRN ×2 (01:33→21:40)
[2020-09-18] MEDS ORDERED: ALUMINUM/MAGNESIUM SUSP 30 ML UDC PO PRN (01:42)
[2020-09-18 06:00] LABS: Eosinophils # (auto) 0.02 K/uL (0-0.5); Eosinophils % (auto) 0.2 %; Hematocrit (blood only) 33.4 % (42-52); Immature Granulocytes # (auto) 0.04 K/uL (0.00-0.02); Immature Granulocytes % (auto) 0.5 %; Lymphocytes # (auto) 0.58 K/uL (1.2-3.4); Lymphocytes % (auto) 6.9 %; Mean Corpuscular Hemoglobin 33.7 pg (25-34); Mean Corpuscular Hgb Conc 35.9 g/dL (32-36); Mean Corpuscular Volume 93.8 fL (80-100); Mean Platelet Volume 11.3 fL (7.4-10.4); Monocytes # (auto) 0.28 K/uL (0.11-0.59); Monocytes % (auto) 3.3 %; Neutrophils # (auto) 7.46 K/uL (1.4-6.5); Neutrophils % (auto) 89.1 %; Platelet Count 173 K/uL (130-400); RDW Coefficient of Variation 16.5 % (11.5-14.5); Red Blood Count 3.56 M/uL (4.7-6.1); White Blood Count 8.38 K/uL (4.8-10.8)
[2020-09-18 06:12] LABS: INR 1.6 (0.9-1.1); Partial Thromboplastin Ratio 1.1; Partial Thromboplastin Time 28.7 Seconds (21.0-31.0); Prothrombin Time 15.7 Seconds (9.0-12.0)
[2020-09-18 06:35] LABS: Albumin Globulin Ratio 0.4 (0.9-2); Albumin Level 2.1 gm/dl (3.4-5.0); BUN Creatinine Ratio 18.4 (10-20); Bilirubin,Total 8.4 mg/dl (0.2-1); Calcium 7.9 mg/dl (8.5-10.1); Creatinine Clr Calc Pharmacy 138.8 ml/min; Est GFR (African American) 116.7; Est GFR (Non-African American) 100.7; Globulin 4.7 gm/dl (2.5-4.0); Magnesium 2.1 mg/dl (1.8-2.4); Potassium 4.1 mmol/L (3.5-5.1); Total Protein 6.8 gm/dl (6.4-8.2)
--- NOTE | 2020-09-18 08:00 | CT Scan Report ---
CT abd pelvis IV con only CLINICAL HISTORY: Epigastric pain COMPARISON STUDY: September 07, 2020 TECHNIQUE: The patient was scanned in a dynamic helical fashion during intravenous administration of 89 cc of Optiray 320. A dose lowering technique was utilized adhering to the principles of ALARA. CT DOSE: 1017.88 mGy.cm FINDINGS: Lower chest: There are mild atelectatic changes present. Liver: No focal hepatic masses are visualized. There is a very subtle nodular contour of the serosal surface of the liver. There is perihepatic ascites. Gallbladder: No calculi identified. There is mild gallbladder wall thickening. Spleen: Enlarged measuring 15 cm Pancreas: There is equivocal mild pancreatic edema with minimal peripancreatic infiltration. Correlat e with biochemical markers for evidence of acute pancreatitis. There is 8 mm cystic focus within the pancreatic neck. Adrenal glands: Unremarkable. Kidneys: There is symmetric renal cortical enhancement. The kidneys are normal in size without hydron ephrosis. Bowel: There are no transition zones indicate bowel obstruction. There is no evidence of acute divert iculitis. The appendix appears normal. Peritoneum: There is no free air. There is low volume ascites. Vasculature: The abdominal aorta is normal in course and caliber. Adenopathy: None. Pelvic viscera: The bladder, and pelvic viscera are unremarkable. Skeletal structures: No destructive osseous lesions are seen. IMPRESSION: 1. No evidence of bowel obstruction. No evidence of free air 2. Normal appendix. No evidence of acute diverticulitis 3. Minor gallbladder wall thickening 4. Low volume ascites 5. Splenomegaly 6. Equivocal mild pancreatic edema with minimal infiltration of peripancreatic fat. Correlate with ap propriate biochemical markers with regards to acute pancreatitis. 7. 8 mm cystic lesion within the pancreatic neck 8. Possible hepatic cirrhosis ACT 112: Negative or not required by law. Electronically signed by: Nathanael Amador M.D. 09/18/2020 7:59 AM
--- NOTE | 2020-09-18 09:02 | Gastrointestinal Consultation ---
Date of Consultation September 18, 2020 Assessment & Plan (1) Pancreatitis: (2) Alcoholic hepatitis: Patient with a history of alcoholic hepatitis recently discharged from the hospital. He appears to be responding to use of steroids as his discriminant function index is now 25.4. With this I would suggest continued use of prednisolone 40 mg/day. With regard to the acute pancreatitis it may be reasonable to pursue an MRCP to ensure that the patient does not have occult stone disease. With the patient's medical history I wonder about continued alcohol abuse as an outpatient. Recommendations Continue with steroid use would suggest prednisolone 40 mg/day MRCP ordered Continue with thiamine and folate supplementation Watch for signs of alcohol withdrawal History of Present Illness Reason for Consultation: Jaundice Attending Physician: Owen Mcdaniel, DO History of Present Illness The patient is a 50-year-old male with a long history of alcohol abuse who presented to the hospital approximately 10 days ago for onset of jaundice. He was found to have evidence of alcoholic hepatitis and placed on to a course of steroids by my partners. The patient was discharged and notes she had been doing fairly well at home until approximately 48 hours ago when he began to have symptoms of abdominal discomfort. He notes that he presented to the emergency room last night and was found to have a significant elevation of his serum lipase. When asked about his ongoing alcohol use the patient is somewhat evasive and was somewhat terse with me. Family hx of alcoholism in multiple family members. Denies autoimmune dz, hepatobiliary, colorectal ca Denies tattoos, body piercing, blood transfusion. Previously worked in sales, laid off. Allergies Allergy/AdvReac Type Severity Reaction Status Date / Time No Known Drug Allergies Allergy Verified 09/17/20 21:56 Home Medications Medication Instructions Recorded Confirmed Type allopurinol 300 mg PO HS 09/07/20 09/17/20 History colchicine 0 mg PO DIRECTED PRN 09/07/20 09/17/20 History metoprolol tartrate 50 mg PO BID 09/07/20 09/17/20 History cholestyramine-aspartame 4 g PO BID@1000,2200 #30 ea 09/09/20 09/17/20 Rx [Cholestyramine Light] prednisolone 45 mg PO DAILY #480 ml 09/09/20 09/17/20 Rx zolpidem [Ambien] 5 mg PO HS PRN #10 tab 09/09/20 09/17/20 Rx aluminum hydrox-magnesium carb 2 tab PO QAM 09/17/20 09/17/20 History [Gaviscon] bismuth subsalicylate 524 mg PO QID PRN 09/17/20 09/17/20 History [Pepto-Bismol] Patient History Medical History Elevated bilirubin Gout History of alcohol abuse Jaundice Surgical History H/O knee surgery left x 2 No pertinent past surgical history Family History Family/Other Myocardial infarction patient notes several ME on father and mothers side Mother Kidney disease Grandmother (Paternal) Diabetes Grandfather (Maternal) Black lung Grandfather No problems noted. Grandfather (Paternal) Black lung Uncle Black lung Denies family history of Ovarian cancer Prostate cancer Breast cancer Colorectal cancer Social History Smoking Status: Never smoker Hx Alcohol Use: Yes Alcohol type: hard liquor Hx Substance Use: No Preferred Language: Latvian Communication Ability: Effective Visual Impairment: No Limitations Hearing Ability: Normal Data Reviewer Required: No Beliefs That Will Affect Care: None and Denominational Denominational Beliefs: Pt would like last marital status: Current Living Situation: Family current occupational status: employed Other Information That Helps Us Care for You: No Feels Safe at Home: Yes Safety Concerns: Feels Safe At This Time Diet Comment: well balanced diet caffeine: No during the past year weight has: remained stable Dental Care, Regularly: No Physical Activity Frequency: Other Seatbelt Use: always Sunscreen Use: Yes Assistive Devices: Denture - Upper and Glasses Review of Systems Constitutional: + malaise; no fever, no sweats and no body aches Eyes: no diplopia Ear, Nose, Mouth, Throat: no ear pain, no tinnitus and no dizziness Respiratory: no change in sputum and no hemoptysis Cardiovascular: no chest pain with activity Gastrointestinal: + abdominal pain; no belching, no bloating, no nausea and no vomiting Genitourinary: no urinary frequency Musculoskeletal: no back pain Neurologic: no falls Psychiatric: no change in appetite Endocrine: no polydipsia Hematologic / Lymphatic: no easy bleeding and no coagulopathy Physical Exam Constitutional: well developed and well nourished; no acute distress Eyes: Scleral icterus noted Neck: trachea midline, no thyromegaly Respiratory: normal respiratory effort; no respiratory distress, no labored breathing and no retractions Cardiovascular: Rate/Rhythm: regular rate Heart Sounds: no murmur Gastrointestinal (Abdomen): Inspection/Auscultation: normal bowel sounds; abdomen not distended Percussion/Palpation: + abdomen tender (Minimal tenderness noted in the left abdomen no right upper quadrant tender) and abdomen soft Skin: + jaundice Neurologic: Speech / Cognition: normal speech Motor/Sensory: no tremor Results & Data ([facility]) Vital Signs (Past 12 Hours) Vital Signs Temp Pulse Pulse Resp BP BP Pulse Ox 09/18/20 07:45 37.1 C 79 20 131/84 96 09/18/20 03:27 36.9 C 75 18 120/65 96 09/18/20 00:30 36.9 C 72 18 135/79 98 09/18/20 00:27 36.9 C 18 135/79 98 09/18/20 00:24 79 09/17/20 23:00 69 15 129/86 99 09/17/20 22:30 71 20 118/57 L 98 09/17/20 22:00 75 21 138/68 99 09/17/20 21:33 99 09/17/20 21:09 37.3 C 84 18 145/88 H 98 Pulse Ox 09/18/20 07:45 09/18/20 03:27 09/18/20 00:30 09/18/20 00:27 98 09/18/20 00:24 09/17/20 23:00 09/17/20 22:30 09/17/20 22:00 09/17/20 21:33 09/17/20 21:09 Laboratory Results Laboratory Results - last 24 hr 09/17/20 09/17/20 09/17/20 21:53 21:53 21:53 WBC 13.51 H RBC 4.08 L Hgb 13.6 L Hct 38.7 L MCV 94.9 MCH 33.3 MCHC 35.1 RDW Std Deviation 57.7 H RDW Coeff of Liliya 16.8 H Plt Count 210 MPV 11.1 H Immature Gran % (Auto) 0.5 Neut % (Auto) 70.7 Lymph % (Auto) 10.2 [place] % (Auto) 17.5 Eos % (Auto) 1.0 Baso % (Auto) 0.1 Neut # (Auto) 9.54 H Lymph # (Auto) 1.38 [place] # (Auto) 2.37 H Eos # (Auto) 0.14 Baso # (Auto) 0.01 Immature Gran # (Auto) 0.07 H PT 14.7 H INR 1.5 H APTT 25.2 PTT Ratio 1.0 Sodium 136 Potassium 3.5 Chloride 108 H Carbon Dioxide 20 L Anion Gap 8.0 BUN 19 H Creatinine 1.15 Est Cr Clr Drug Dosing 102.2 Est GFR ( Amer) 84.3 Est GFR (Non-Af Amer) 72.8 BUN/Creatinine Ratio 16.3 Glucose 129 H Calcium 8.7 Magnesium Total Bilirubin 8.8 H Direct Bilirubin 5.8 H AST 151 H ALT 146 H Alkaline Phosphatase 176 H Ammonia Total Protein 7.6 Albumin 2.4 L Globulin Albumin/Globulin Ratio Lipase 65402 H COVID-19 Eval Order SARS-CoV-2 (PCR) Influenza Type A (PCR) Influenza Type B (PCR) RSV (RT-PCR) 09/17/20 09/17/20 09/17/20 21:53 22:43 22:43 WBC RBC Hgb Hct MCV MCH MCHC RDW Std Deviation RDW Coeff of Liliya Plt Count MPV Immature Gran % (Auto) Neut % (Auto) Lymph % (Auto) [place] % (Auto) Eos % (Auto) Baso % (Auto) Neut # (Auto) Lymph # (Auto) [place] # (Auto) Eos # (Auto) Baso # (Auto) Immature Gran # (Auto) PT INR APTT PTT Ratio Sodium Potassium Chloride Carbon Dioxide Anion Gap BUN Creatinine Est Cr Clr Drug Dosing Est GFR ( Amer) Est GFR (Non-Af Amer) BUN/Creatinine Ratio Glucose Calcium Magnesium Total Bilirubin Direct Bilirubin AST ALT Alkaline Phosphatase Ammonia 53.3 H Total Protein Albumin Globulin Albumin/Globulin Ratio Lipase COVID-19 Eval Order CovFluRsv at [facility] SARS-CoV-2 (PCR) NEGATIVE Influenza Type A (PCR) Negative Influenza Type B (PCR) Negative RSV (RT-PCR) Negative 09/18/20 09/18/20 09/18/20 05:49 05:49 05:49 WBC 8.38 RBC 3.56 L Hgb 12.0 L Hct 33.4 L MCV 93.8 MCH 33.7 MCHC 35.9 RDW Std Deviation 57.0 H RDW Coeff of Liliya 16.5 H Plt Count 173 MPV 11.3 H Immature Gran % (Auto) 0.5 Neut % (Auto) 89.1 Lymph % (Auto) 6.9 [place] % (Auto) 3.3 Eos % (Auto) 0.2 Baso % (Auto) 0.0 Neut # (Auto) 7.46 H Lymph # (Auto) 0.58 L [place] # (Auto) 0.28 Eos # (Auto) 0.02 Baso # (Auto) 0.00 Immature Gran # (Auto) 0.04 H PT 15.7 H INR 1.6 H APTT 28.7 PTT Ratio 1.1 Sodium 138 Potassium 4.1 D Chloride 112 H Carbon Dioxide 19 L Anion Gap 7.0 BUN 15 Creatinine 0.84 D Est Cr Clr Drug Dosing 138.8 Est GFR ( Amer) 116.7 Est GFR (Non-Af Amer) 100.7 BUN/Creatinine Ratio 18.4 Glucose 122 H Calcium 7.9 L Magnesium 2.1 Total Bilirubin 8.4 H Direct Bilirubin AST 121 H ALT 124 H Alkaline Phosphatase 160 H Ammonia Total Protein 6.8 Albumin 2.1 L Globulin 4.7 H Albumin/Globulin Ratio 0.4 L Lipase 43044 H COVID-19 Eval Order SARS-CoV-2 (PCR) Influenza Type A (PCR) Influenza Type B (PCR) RSV (RT-PCR) 09/18/20 05:49 WBC RBC Hgb Hct MCV MCH MCHC RDW Std Deviation RDW Coeff of Liliya Plt Count MPV Immature Gran % (Auto) Neut % (Auto) Lymph % (Auto) [place] % (Auto) Eos % (Auto) Baso % (Auto) Neut # (Auto) Lymph # (Auto) [place] # (Auto) Eos # (Auto) Baso # (Auto) Immature Gran # (Auto) PT INR APTT PTT Ratio Sodium Potassium Chloride Carbon Dioxide Anion Gap BUN Creatinine Est Cr Clr Drug Dosing Est GFR ( Amer) Est GFR (Non-Af Amer) BUN/Creatinine Ratio Glucose Calcium Magnesium Total Bilirubin Direct Bilirubin AST ALT Alkaline Phosphatase Ammonia 59.0 H Total Protein Albumin Globulin Albumin/Globulin Ratio Lipase COVID-19 Eval Order SARS-CoV-2 (PCR) Influenza Type A (PCR) Influenza Type B (PCR) RSV (RT-PCR) Diagnostic Findings CT abd pelvis IV con only CLINICAL HISTORY: Epigastric pain COMPARISON STUDY: September 07, 2020 TECHNIQUE: The patient was scanned in a dynamic helical fashion during intravenous administration of 89 cc of Optiray 320. A dose lowering technique was utilized adhering to the principles of ALARA. CT DOSE: 1017.88 mGy.cm FINDINGS: Lower chest: There are mild atelectatic changes present. Liver: No focal hepatic masses are visualized. There is a very subtle nodular contour of the serosal surface of the liver. There is perihepatic ascites. Gallbladder: No calculi identified. There is mild gallbladder wall thickening. Spleen: Enlarged measuring 15 cm Pancreas: There is equivocal mild pancreatic edema with minimal peripancreatic infiltration. Correlate with biochemical markers for evidence of acute pancreatitis. There is 8 mm cystic focus within the pancreatic neck. Adrenal glands: Unremarkable. Kidneys: There is symmetric renal cortical enhancement. The kidneys are normal in size without hydronephrosis. Bowel: There are no transition zones indicate bowel obstruction. There is no evidence of acute diverticulitis. The appendix appears normal. Peritoneum: There is no free air. There is low volume ascites. Vasculature: The abdominal aorta is normal in course and caliber. Adenopathy: None. Pelvic viscera: The bladder, and pelvic viscera are unremarkable. Skeletal structures: No destructive osseous lesions are seen. IMPRESSION: 1. No evidence of bowel obstruction. No evidence of free air 2. Normal appendix. No evidence of acute diverticulitis 3. Minor gallbladder wall thickening 4. Low volume ascites 5. Splenomegaly 6. Equivocal mild pancreatic edema with minimal infiltration of peripancreatic fat. Correlate with appropriate biochemical markers with regards to acute pancreatitis. 7. 8 mm cystic lesion within the pancreatic neck 8. Possible hepatic cirrhosis (1) Pancreatitis Acute pancreatitis complication: unspecified Chronicity: acute Pancreatitis type: unspecified pancreatitis type Qualified Code(s): K85.90 - Acute pancreatitis without necrosis or infection, unspecified
[2020-09-18] MEDS: predniSONE 10 MG TABLET PO SCH (09:11)
[2020-09-18] MEDS: METOPROLOL TARTRATE 50 MG TAB PO SCH ×2 (09:12→20:45)
[2020-09-18] MEDS: CHOLESTYRAMINE LIGHT 4 GM PKT PO SCH ×2 (10:00→21:40)
[2020-09-18] MEDS ORDERED: LORazepam 0.5 MG TAB PO STA (10:59)
--- NOTE | 2020-09-18 13:22 | Magnetic Resonance Report ---
MR MRCP CLINICAL HISTORY: jaundice, evaluation for stone disease COMPARISON STUDY: CT scan dated 09/17/2020 FINDINGS: A breath-hold MRCP was performed. MIP images were acquired. The spleen is enlarged measuring 14.8 cm. There is mild perihepatic ascites. There is no evidence of intra or extrahepatic biliary ductal dilatation. No gallstones are visualized . There is no pancreatic ductal dilatation. There is a 7 mm cystic lesion within the pancreatic body li jay representing a side branch IPMN. There is equivocal mild pancreatic edema. There are no ductal filling defects to indicate calculi. IMPRESSION: 1. No biliary ductal calculi identified 2. No biliary ductal dilatation. No pancreatic ductal dilatation. 3. Low volume ascites 4. Splenomegaly 5. 7 mm cystic lesion within the pancreatic body likely representing a side branch IPMN 6. Equivocal mild pancreatic edema. Clinical correlation with regards to interstitial or autoimmune p ancreatitis recommended ACT 112: Negative or not required by law. Electronically signed by: Nathanael Amador M.D. 09/18/2020 1:21 PM
--- NOTE | 2020-09-18 13:51 | Hospitalist Progress Note ---
Date of Service September 18, 2020 Assessment & Plan (1) Pancreatitis: Acute interstitial pancreatitis- Noted on CT of abdomen and pelvis. As noted, lipase is improved. We will continue to monitor. Follow LFTs. Continue n.p.o. status for now with saline hydration. NSS plus KCl 20 mEq at 150 mils per hour Appreciate GI consultation, MRCP was negative and I agree that the patient likely has continued alcoholic hepatitis. (2) Gout: Allopurinol 300 mg daily (3) Hypertension: Metoprolol tartrate 50 mg p.o. twice daily with hold parameters (4) Alcoholic hepatitis: Continue prednisone/prednisolone 45 mg p.o. daily Liver test similar to recent discharge labs MELD score now down to 20 Follow serial CHEM/liver profile (5) History of alcohol abuse: Reports abstinence x1 month (6) Coagulopathy: continue to follow INR, has not changed much and is 1.6 today. Admission and Anticipated Discharge Date Admission Date: September 17, 2020 Subjective Patient seen and examined. He tells me that the quality of pain that brought him in this admission was different than the pain from earlier this month. In addition, he tells me has not had a drink alcohol in 29 days. He has been compliant with medication as an outpatient. Labs show continued elevated bilirubin and transaminases but has had an improvement of his [place] 77[address] to [address]. Patient denies any nausea or vomiting. He has been afebrile. He does feel that some of his pain is resolved. Physical Exam Constitutional: no acute distress Eyes: + scleral abnormality (icteric) Neck: trachea midline, no thyromegaly Respiratory: normal respiratory effort, lungs clear to auscultation Auscultation: lungs clear to auscultation bilaterally Cardiovascular: RRR, no murmur, no edema Gastrointestinal (Abdomen): normal bowel sounds, soft, nontender, no hepatosplenomegaly Percussion/Palpation: abdomen nontender Skin: + jaundice Neurologic: PERRL, EOMI, accommodation nl, no face palsy, no dysarthria Results & Data Results & Data ([facility]) Vital Signs (Past 12 Hours) Vital Signs Temp Pulse Pulse Resp BP Pulse Ox 09/18/20 11:53 36.4 C L 81 20 150/84 H 99 09/18/20 09:10 87 142/75 H 09/18/20 07:45 37.1 C 79 20 131/84 96 05/01/21 03:27 36.9 C 75 18 120/65 96 PG Care Time/CCT Total # of Minutes Spent Total Time Spent with Patient: Total time spent is greater than 50% in coordination of care (as documented) at patient's floor/unit and/or counseling patient: Coding Level of Care Code 59332 Subseq Hosp Care Lvl 2 Diagnoses Pancreatitis K85.90 Acute pancreatitis complication: unspecified Chronicity: acute Pancreatitis type: unspecified pancreatitis type Gout M10.9 Hypertension I10 Alcoholic hepatitis K70.10 History of alcohol abuse F10.11 Coagulopathy D68.9 (1) Pancreatitis Acute pancreatitis complication: unspecified Chronicity: acute Pancreatitis type: unspecified pancreatitis type Qualified Code(s): K85.90 - Acute pancreatitis without necrosis or infection, unspecified
[2020-09-18] MEDS: allopurinoL 300 MG TAB PO SCH (20:45)
[2020-09-19] MEDS ORDERED: MoRPHine SULFATE 2 MG/ML CARP IV STA (02:44)
[2020-09-19] MEDS: NSS + 20MEQ KCL 20 MEQ/1,000 ML BAG IV SCH ×3 (05:58→19:41)
[2020-09-19 06:30] LABS: Albumin Level 2.2 gm/dl (3.4-5.0); BUN Creatinine Ratio 15.3 (10-20); Calcium 8.3 mg/dl (8.5-10.1); Creatinine Clr Calc Pharmacy 148.8 ml/min; Est GFR (African American) 120.3; Est GFR (Non-African American) 103.8; Magnesium 2.1 mg/dl (1.8-2.4); Potassium 4.1 mmol/L (3.5-5.1)
[2020-09-19 06:31] LABS: INR 1.7 (0.9-1.1); Partial Thromboplastin Time 27.6 Seconds (21.0-31.0); Prothrombin Time 16.3 Seconds (9.0-12.0)
[2020-09-19 06:38] LABS: Albumin Globulin Ratio 0.4 (0.9-2); Bilirubin,Total 7.2 mg/dl (0.2-1); Globulin 4.9 gm/dl (2.5-4.0); Total Protein 7.1 gm/dl (6.4-8.2)
[2020-09-19 06:43] LABS: Eosinophils # (auto) 0.07 K/uL (0-0.5); Eosinophils % (auto) 0.4 %; Hematocrit (blood only) 36.7 % (42-52); Hemoglobin 12.9 g/dL (14.0-18.0); Immature Granulocytes # (auto) 0.08 K/uL (0.00-0.02); Immature Granulocytes % (auto) 0.4 %; Lymphocytes % (auto) 10.2 %; Mean Corpuscular Hemoglobin 33.3 pg (25-34); Mean Corpuscular Hgb Conc 35.1 g/dL (32-36); Mean Corpuscular Volume 94.8 fL (80-100); Mean Platelet Volume 11.6 fL (7.4-10.4); Monocytes # (auto) 1.83 K/uL (0.11-0.59); Monocytes % (auto) 9.3 %; Neutrophils # (auto) 15.68 K/uL (1.4-6.5); Neutrophils % (auto) 79.7 %; Platelet Count 218 K/uL (130-400); RDW Coefficient of Variation 16.5 % (11.5-14.5); RDW Standard Deviation 56.7 fL (36.4-46.3); Red Blood Count 3.87 M/uL (4.7-6.1); White Blood Count 19.66 K/uL (4.8-10.8)
[2020-09-19] MEDS: METOPROLOL TARTRATE 50 MG TAB PO SCH ×2 (08:54→20:43)
[2020-09-19] MEDS: predniSONE 10 MG TABLET PO SCH (08:54)
--- NOTE | 2020-09-19 09:13 | Gastroenterology Progress Note ---
Date of Service September 19, 2020 Assessment & Plan (1) Pancreatitis: Patient with a history of alcoholic hepatitis recently discharged from the hospital. He appears to be responding to use of steroids as his discriminant function index was 25.4 on admission. With this I would suggest continued use of prednisolone 40 mg/day. The patient did have a negative MRCP for evidence of stone disease. It appears that his pancreatitis is likely alcohol related. He did have increased pain with the diet that he is on therefore I would suggest a clear liquid only diet and continued IV hydration. Recommendations Continue with IV hydration at 150 ml/hour Clear liquid only Continue steroid use for alcoholic hepatitis Watch for signs of alcohol withdrawal (2) Alcoholic hepatitis: Admission and Anticipated Discharge Date Admission Date: September 17, 2020 Subjective The patient notes that he had some continued discomfort last evening. He notes that he wants to eat normally however he does get postprandial discomfort. Review of Systems Constitutional: no fever, no chills and no sweats Eyes: no diplopia Respiratory: no cough, no change in sputum and no dyspnea Cardiovascular: no chest pain with activity Physical Exam Constitutional: well nourished; no acute distress Eyes: jaundice noted Neck: trachea midline, no thyromegaly Respiratory: normal respiratory effort, lungs clear to auscultation Cardiovascular: Rate/Rhythm: regular rate Gastrointestinal (Abdomen): Inspection/Auscultation: normal bowel sounds; abdomen not distended Percussion/Palpation: + abdomen tender (Mild tenderness unchanged from yesterday) Skin: no rashes, warm and dry jaundic noted Neurologic: awake; no focal motor deficits and not confused Results & Data ([facility]) Vital Signs (Past 12 Hours) Vital Signs Temp Pulse Pulse Resp BP Pulse Ox Pulse Ox 09/19/20 07:38 36.8 C 72 20 144/89 H 97 09/19/20 03:10 36.7 C 74 18 141/81 H 97 09/19/20 01:42 67 09/19/20 01:36 67 09/19/20 00:27 98 09/19/20 00:07 36.7 C 69 18 143/88 H 96 Laboratory Results Laboratory Results - last 24 hr 09/18/20 09/19/20 09/19/20 09:13 05:54 05:54 WBC 19.66 H RBC 3.87 L Hgb 12.9 L Hct 36.7 L MCV 94.8 MCH 33.3 MCHC 35.1 RDW Std Deviation 56.7 H RDW Coeff of Liliya 16.5 H Plt Count 218 MPV 11.6 H Immature Gran % (Auto) 0.4 Neut % (Auto) 79.7 Lymph % (Auto) 10.2 [place] % (Auto) 9.3 Eos % (Auto) 0.4 Baso % (Auto) 0.0 Neut # (Auto) 15.68 H Lymph # (Auto) 2.00 [place] # (Auto) 1.83 H Eos # (Auto) 0.07 Baso # (Auto) 0.00 Immature Gran # (Auto) 0.08 H PT 16.3 H INR 1.7 H APTT 27.6 PTT Ratio 1.0 Sodium Potassium Chloride Carbon Dioxide Anion Gap BUN Creatinine Est Cr Clr Drug Dosing Est GFR ( Amer) Est GFR (Non-Af Amer) BUN/Creatinine Ratio Glucose Calcium Magnesium Total Bilirubin AST ALT Alkaline Phosphatase Ammonia Total Protein Albumin Globulin Albumin/Globulin Ratio Lipase Volat Analys Perform On Pending Methyl Alcohol Level Pending 09/19/20 09/19/20 05:54 05:54 WBC RBC Hgb Hct MCV MCH MCHC RDW Std Deviation RDW Coeff of Liliya Plt Count MPV Immature Gran % (Auto) Neut % (Auto) Lymph % (Auto) [place] % (Auto) Eos % (Auto) Baso % (Auto) Neut # (Auto) Lymph # (Auto) [place] # (Auto) Eos # (Auto) Baso # (Auto) Immature Gran # (Auto) PT INR APTT PTT Ratio Sodium 140 Potassium 4.1 Chloride 114 H Carbon Dioxide 22 Anion Gap 4.0 BUN 12 Creatinine 0.78 Est Cr Clr Drug Dosing 148.8 Est GFR ( Amer) 120.3 Est GFR (Non-Af Amer) 103.8 BUN/Creatinine Ratio 15.3 Glucose 92 Calcium 8.3 L Magnesium 2.1 Total Bilirubin 7.2 H AST 77 H ALT 107 H Alkaline Phosphatase 170 H Ammonia 40.0 H Total Protein 7.1 Albumin 2.2 L Globulin 4.9 H Albumin/Globulin Ratio 0.4 L Lipase 01280 H Volat Analys Perform On Methyl Alcohol Level (1) Pancreatitis Acute pancreatitis complication: unspecified Chronicity: acute Pancreatitis type: unspecified pancreatitis type Qualified Code(s): K85.90 - Acute pancreatitis without necrosis or infection, unspecified
[2020-09-19] MEDS ORDERED: MoRPHine SULFATE 2 MG/ML CARP IV PRN (09:45)
[2020-09-19] MEDS: POLYETHYLENE (MIRALAX) 17 GM PACK PO SCH (10:22)
[2020-09-19] MEDS: CHOLESTYRAMINE LIGHT 4 GM PKT PO SCH ×2 (10:23→22:07)
--- NOTE | 2020-09-19 12:52 | Hospitalist Progress Note ---
Date of Service September 19, 2020 Assessment & Plan (1) Pancreatitis: Acute interstitial pancreatitis- Noted on CT of abdomen and pelvis. As noted, lipase continues to improve. We will continue to monitor. Okay to continue clear liquids as tolerated, would definitely not advance at this time. Continue NSS plus KCl 20 mEq at 150 mils per hour Appreciate GI consultation, MRCP was negative and I agree that the patient likely has continued alcoholic hepatitis. (2) Gout: Allopurinol 300 mg daily (3) Hypertension: Metoprolol tartrate 50 mg p.o. twice daily with hold parameters (4) Alcoholic hepatitis: Continue prednisone/prednisolone 45 mg p.o. daily Patient's bilirubin is improved as are his transaminases Ammonia improved as well Continue to monitor (5) History of alcohol abuse: Reports abstinence x1 month (6) Coagulopathy: continue to follow INR, has not changed much and is 1.7 today. May be some degree of starvation coagulopathy. Admission and Anticipated Discharge Date Admission Date: September 17, 2020 Subjective Patient seen and examined. He was advanced to clear liquid last night but had significant abdominal pain after small amounts required opioid analgesia. He has not had anything by mouth this morning. He is slightly improved by lab work with improved bilirubin, ammonia level, and transaminases. He has been afebrile. Other vital signs are stable. Physical Exam Constitutional: + ill appearing Eyes: Icteric Respiratory: normal respiratory effort, lungs clear to auscultation Auscultation: lungs clear to auscultation bilaterally Cardiovascular: RRR, no murmur, no edema Heart Sounds: normal S1 and normal S2 Gastrointestinal (Abdomen): normal bowel sounds, soft, nontender, no hepatosplenomegaly Skin: + jaundice Neurologic: PERRL, EOMI, accommodation nl, no face palsy, no dysarthria Results & Data Results & Data ([facility]) Vital Signs (Past 12 Hours) Vital Signs Temp Pulse Pulse Resp BP BP Pulse Ox 09/19/20 11:37 37.7 C H 76 16 127/74 96 09/19/20 07:38 36.8 C 72 20 144/89 H 97 09/19/20 03:10 36.7 C 74 18 141/81 H 97 09/19/20 01:42 67 09/19/20 01:36 67 PG Care Time/CCT Total # of Minutes Spent Total Time Spent with Patient: Total time spent is greater than 50% in coordination of care (as documented) at patient's floor/unit and/or counseling patient: Coding Level of Care Code 25001 Subseq Hosp Care Lvl 2 Diagnoses Pancreatitis K85.90 Acute pancreatitis complication: unspecified Chronicity: acute Pancreatitis type: unspecified pancreatitis type Gout M10.9 Hypertension I10 Alcoholic hepatitis K70.10 History of alcohol abuse F10.11 Coagulopathy D68.9 (1) Pancreatitis Acute pancreatitis complication: unspecified Chronicity: acute Pancreatitis type: unspecified pancreatitis type Qualified Code(s): K85.90 - Acute pancreatitis without necrosis or infection, unspecified
[2020-09-19 13:58] LABS: Methyl Alcohol Comment WHOLE BLOOD; Methyl Alcohol Level NONE DETECTED (NONE DETECTED)
[2020-09-19] MEDS: allopurinoL 300 MG TAB PO SCH (20:43)
[2020-09-19] MEDS: ZOLPIDEM TARTRATE 5 MG TAB PO PRN (22:07)
[2020-09-20] MEDS: NSS + 20MEQ KCL 20 MEQ/1,000 ML BAG IV SCH ×4 (02:16→22:06)
[2020-09-20 06:13] LABS: Basophils # (auto) 0.01 K/uL (0-0.2); Basophils % (auto) 0.1 %; Eosinophils # (auto) 0.08 K/uL (0-0.5); Eosinophils % (auto) 0.5 %; Hematocrit (blood only) 35.5 % (42-52); Hemoglobin 12.4 g/dL (14.0-18.0); Immature Granulocytes # (auto) 0.05 K/uL (0.00-0.02); Immature Granulocytes % (auto) 0.3 %; Lymphocytes # (auto) 1.68 K/uL (1.2-3.4); Lymphocytes % (auto) 11.5 %; Mean Corpuscular Hemoglobin 33.7 pg (25-34); Mean Corpuscular Hgb Conc 34.9 g/dL (32-36); Mean Corpuscular Volume 96.5 fL (80-100); Mean Platelet Volume 11.6 fL (7.4-10.4); Monocytes # (auto) 1.64 K/uL (0.11-0.59); Monocytes % (auto) 11.3 %; Neutrophils # (auto) 11.09 K/uL (1.4-6.5); Neutrophils % (auto) 76.3 %; Platelet Count 179 K/uL (130-400); RDW Coefficient of Variation 16.7 % (11.5-14.5); RDW Standard Deviation 58.4 fL (36.4-46.3); Red Blood Count 3.68 M/uL (4.7-6.1); White Blood Count 14.55 K/uL (4.8-10.8)
[2020-09-20 06:37] LABS: INR 1.6 (0.9-1.1); Partial Thromboplastin Ratio 1.1; Partial Thromboplastin Time 28.3 Seconds (21.0-31.0); Prothrombin Time 15.6 Seconds (9.0-12.0)
[2020-09-20 07:03] LABS: Albumin Globulin Ratio 0.5 (0.9-2); Albumin Level 2.1 gm/dl (3.4-5.0); BUN Creatinine Ratio 11.2 (10-20); Bilirubin,Total 5.7 mg/dl (0.2-1); Calcium 8.4 mg/dl (8.5-10.1); Creatinine Clr Calc Pharmacy 157.8 ml/min; Est GFR (African American) 122.9; Est GFR (Non-African American) 106.1; Globulin 4.6 gm/dl (2.5-4.0); Magnesium 2.1 mg/dl (1.8-2.4); Potassium 4.3 mmol/L (3.5-5.1); Total Protein 6.7 gm/dl (6.4-8.2)
--- NOTE | 2020-09-20 08:06 | Hospitalist Progress Note ---
Date of Service September 20, 2020 Assessment & Plan (1) Pancreatitis: Acute interstitial pancreatitis-resolving lipase is down below 800 from 28,[address] of abdomen and pelvis. Advance diet to soft food Continue NSS plus KCl 20 mEq at 150 mils per hour GI consultation, continues to follow MRCP 09/18/20 IMPRESSION: 1. No biliary ductal calculi identified 2. No biliary ductal dilatation. No pancreatic ductal dilatation. 3. Low volume ascites 4. Splenomegaly 5. 7 mm cystic lesion within the pancreatic body likely representing a side branch IPMN 6. Equivocal mild pancreatic edema. (2) Gout: Allopurinol 300 mg daily (3) Hypertension: Metoprolol tartrate 50 mg p.o. twice daily with hold parameters (4) Alcoholic hepatitis: Continue prednisone/prednisolone 45 mg p.o. daily Patient's bilirubin AST and ammonia are improving (5) History of alcohol abuse: Reports abstinence x1 month denies recent alcohol use (6) Coagulopathy: remains mildly elevated , will not have chemoprophylaxis Admission and Anticipated Discharge Date Admission Date: September 17, 2020 Subjective pt has much improvement in his pain still with small twinges, tolerating liquid diet and will advance to soft foods Review of Systems Review of Systems: Mild distress and fatigue patient is obviously jaundiced no headache, blurry or double vision no speech or swallowing issues no chest pain, pressure or palpitations no shortness of breath, cough or wheezes Mild abdominal pain less distention still some bloating though no dysuria, hematuria or frequency no focal joint pain or swelling no back pain, CVA tenderness or radicular pain no bruising, bleeding or rashes he denies having itching no focal signs of weakness or numbness or altered sensation no complaints of anxiety or depression.. Physical Exam Physical Exam: The patient appeared jaundiced with a protuberant abdomen no caput medusa seen Vital signs as documented. Head exam is normocephalic atraumatic scleral icterus is noted Neck is without JVD, thyromegaly, or carotid bruits. Lungs are clear to auscultation, exception of diminished breath sounds at the bases Cardiac exam, Rhythm is regular.. No murmurs, rubs or gallops. Abdominal exam reveals normal bowel sounds, soft slightly distended nontender Extremities are nonedematous and both pedal pulses are present Neurologic exam is alert and oriented, no focal loss of strength or sensation Skin is with jaundice Psychologically is without concerns for anxiety or depression Results & Data Results & Data ([facility]) Vital Signs (Past 12 Hours) Vital Signs Temp Pulse Pulse Resp BP BP Pulse Ox 09/20/20 07:16 99.0 F 71 19 123/78 96 09/20/20 03:19 98.1 F 71 18 125/86 98 09/20/20 00:26 66 09/20/20 00:02 98.6 F 74 18 110/62 95 PG Care Time/CCT Total # of Minutes Spent Total Time Spent with Patient: Total time spent is greater than 50% in coordination of care (as documented) at patient's floor/unit and/or counseling patient: Coding Level of Care Code 03520 Subseq Hosp Care Lvl 3 Diagnoses Pancreatitis K85.90 Acute pancreatitis complication: unspecified Chronicity: acute Pancreatitis type: unspecified pancreatitis type Gout M10.9 Hypertension I10 Alcoholic hepatitis K70.10 History of alcohol abuse F10.11 Coagulopathy D68.9 (1) Pancreatitis Acute pancreatitis complication: unspecified Chronicity: acute Pancreatitis type: unspecified pancreatitis type Qualified Code(s): K85.90 - Acute pancreatitis without necrosis or infection, unspecified
[2020-09-20] MEDS: POLYETHYLENE (MIRALAX) 17 GM PACK PO SCH (08:52)
[2020-09-20] MEDS: METOPROLOL TARTRATE 50 MG TAB PO SCH ×2 (08:52→20:34)
[2020-09-20] MEDS: predniSONE 10 MG TABLET PO SCH (08:52)
[2020-09-20] MEDS: CHOLESTYRAMINE LIGHT 4 GM PKT PO SCH ×2 (08:53→22:05)
[2020-09-20] MEDS: allopurinoL 300 MG TAB PO SCH (20:34)
[2020-09-20] MEDS: ZOLPIDEM TARTRATE 5 MG TAB PO PRN (22:05)
[2020-09-21] MEDS: NSS + 20MEQ KCL 20 MEQ/1,000 ML BAG IV SCH ×3 (04:56→16:52)
[2020-09-21] MEDS: predniSONE 10 MG TABLET PO SCH (08:09)
[2020-09-21] MEDS: METOPROLOL TARTRATE 50 MG TAB PO SCH ×2 (08:09→20:08)
[2020-09-21] MEDS: POLYETHYLENE (MIRALAX) 17 GM PACK PO SCH (08:11)
[2020-09-21 08:46] LABS: INR 1.6 (0.9-1.1); Prothrombin Time 15.5 Seconds (9.0-12.0)
[2020-09-21 09:06] LABS: Albumin Level 2.1 gm/dl (3.4-5.0); BUN Creatinine Ratio 8.8 (10-20); Calcium 8.8 mg/dl (8.5-10.1); Creatinine Clr Calc Pharmacy 144.6 ml/min; Est GFR (African American) 118.4; Est GFR (Non-African American) 102.2; Potassium 3.6 mmol/L (3.5-5.1)
[2020-09-21 09:21] LABS: Albumin Globulin Ratio 0.5 (0.9-2); Bilirubin,Total 4.8 mg/dl (0.2-1); Globulin 4.5 gm/dl (2.5-4.0); Total Protein 6.6 gm/dl (6.4-8.2)
[2020-09-21] MEDS: CHOLESTYRAMINE LIGHT 4 GM PKT PO SCH ×2 (10:58→22:51)
--- NOTE | 2020-09-21 19:01 | Hospitalist Progress Note ---
Date of Service September 21, 2020 Assessment & Plan (1) Pancreatitis: Acute interstitial pancreatitis-resolving lipase is down below 800 from 28,[address] of abdomen and pelvis. Diet now advanced to regular discontinuing IV fluid GI consultation, continues to follow MRCP 09/18/20 IMPRESSION: 1. No biliary ductal calculi identified 2. No biliary ductal dilatation. No pancreatic ductal dilatation. 3. Low volume ascites 4. Splenomegaly 5. 7 mm cystic lesion within the pancreatic body likely representing a side branch IPMN 6. Equivocal mild pancreatic edema. (2) Gout: Allopurinol 300 mg daily (3) Hypertension: Metoprolol tartrate 50 mg p.o. twice daily with hold parameters (4) Alcoholic hepatitis: Continue prednisone/prednisolone 45 mg p.o. daily Patient's bilirubin AST and ammonia continue to improve (5) History of alcohol abuse: Reports abstinence x1 month denies recent alcohol use (6) Coagulopathy: remains mildly elevated , will not have chemoprophylaxis Admission and Anticipated Discharge Date Admission Date: September 17, 2020 Subjective Patient continues to improve with one bout of abdominal pain early in the morning. Still with bilirubin greater than 4 AST and ALT are improved lipase is down to 500's Review of Systems Review of Systems: Mild distress and fatigue patient is obviously jaundiced no headache, blurry or double vision no speech or swallowing issues no chest pain, pressure or palpitations no shortness of breath, cough or wheezes Mild abdominal pain less distention still some bloating though no dysuria, hematuria or frequency no focal joint pain or swelling no back pain, CVA tenderness or radicular pain no bruising, bleeding or rashes he denies having itching no focal signs of weakness or numbness or altered sensation no complaints of anxiety or depression.. Physical Exam Physical Exam: The patient appeared jaundiced with a protuberant abdomen no caput medusa seen Vital signs as documented. Head exam is normocephalic atraumatic scleral icterus is noted Neck is without JVD, thyromegaly, or carotid bruits. Lungs are clear to auscultation, exception of diminished breath sounds at the bases Cardiac exam, Rhythm is regular.. No murmurs, rubs or gallops. Abdominal exam reveals normal bowel sounds, soft slightly distended nontender Extremities are nonedematous and both pedal pulses are present Neurologic exam is alert and oriented, no focal loss of strength or sensation Skin is with jaundice Psychologically is without concerns for anxiety or depression Results & Data Results & Data ([facility]) Vital Signs (Past 12 Hours) Vital Signs Temp Pulse Resp BP Pulse Ox Pulse Ox 09/21/20 14:00 98.1 F 81 18 130/66 96 09/21/20 11:43 98.4 F 88 18 141/63 H 95 09/21/20 08:00 96 09/21/20 07:33 98.8 F 73 17 135/80 98 PG Care Time/CCT Total # of Minutes Spent Total Time Spent with Patient: Total time spent is greater than 50% in coordination of care (as documented) at patient's floor/unit and/or counseling patient: Coding Level of Care Code 46764 Subseq Hosp Care Lvl 2 Diagnoses Pancreatitis K85.90 Acute pancreatitis complication: unspecified Chronicity: acute Pancreatitis type: unspecified pancreatitis type Gout M10.9 Hypertension I10 Alcoholic hepatitis K70.10 History of alcohol abuse F10.11 Coagulopathy D68.9 (1) Pancreatitis Acute pancreatitis complication: unspecified Chronicity: acute Pancreatitis type: unspecified pancreatitis type Qualified Code(s): K85.90 - Acute pancreatitis without necrosis or infection, unspecified
[2020-09-21] MEDS: allopurinoL 300 MG TAB PO SCH (20:08)
[2020-09-21] MEDS: ZOLPIDEM TARTRATE 5 MG TAB PO PRN (22:51)
[2020-09-22] MEDS: NSS + 20MEQ KCL 20 MEQ/1,000 ML BAG IV SCH ×4 (01:39→22:52)
[2020-09-22] MEDS: METOPROLOL TARTRATE 50 MG TAB PO SCH ×2 (08:21→20:58)
[2020-09-22] MEDS: predniSONE 10 MG TABLET PO SCH (08:22)
[2020-09-22] MEDS: POLYETHYLENE (MIRALAX) 17 GM PACK PO SCH (08:25)
[2020-09-22 08:27] LABS: Albumin Level 2.2 gm/dl (3.4-5.0); BUN Creatinine Ratio 10.6 (10-20); Calcium 8.7 mg/dl (8.5-10.1); Creatinine Clr Calc Pharmacy 176.6 ml/min; Est GFR (African American) 128.8; Est GFR (Non-African American) 111.2; Potassium 3.6 mmol/L (3.5-5.1)
[2020-09-22 08:42] LABS: Albumin Globulin Ratio 0.5 (0.9-2); Bilirubin,Total 4.2 mg/dl (0.2-1); Globulin 4.4 gm/dl (2.5-4.0); Total Protein 6.6 gm/dl (6.4-8.2)
[2020-09-22] MEDS: CHOLESTYRAMINE LIGHT 4 GM PKT PO SCH ×2 (09:37→22:52)
--- NOTE | 2020-09-22 15:02 | Gastroenterology Progress Note ---
Date of Service September 22, 2020 Assessment & Plan (1) Pancreatitis: OP EUS for f/u of pancreatitis and for 7mm pancreas cyst. Our office will contact him to arrange. Present on Admission?: Yes (2) Alcoholic hepatitis: Improving on steroids, so would continue: recommend prednisolone 40mg/day x an addtional 2 weeks, then 30mg/day x 1 wk, then 20mg/day x 1 wk, then 10 mg/day x 1 week stop. Continue with thiamine and folate supplementation Likely has cirrhosis Discussed the importance of abstinence. Will arrange OP GI f/u in the next few weeks. Our office will contact him. Present on Admission?: Yes Admission and Anticipated Discharge Date Admission Date: September 17, 2020 Supervising Physician Co-Signing Physician Notes Pt without complaint today. Magdalena PO. Abd soft. Labs show stable INR/creat, improved bili. Alc hep + alc panc -- Favorable Lille score. He appears resolved from his pancreatitis, will plan to complete steroid taper. Needs f/u imaging in 1 year for IPMN. Will arrange for outpt f/u. Please call with questions. Subjective 50 yr old male admitted on 09/18 for jaundice, w ETOH hepatitis and pancreatitis, Abstaining x approx 1 wk prior to admission. Feels well. Ambulating. Eating a regular diet w/o any nausea or abd pain. LFTs improving on steroids T bili on 09/18/20 was 8.4->4.2 today. AST 114->65, ALT 126->83, Alk Phos 207->172. Cr has remained normal, today at 0.66. Review of Systems Review of Systems: ROS: (today) Gen: Denies weakness, fevers, weight loss Eyes: No eye redness, or pain, no recent vision changes Resp: No SOB, no cough Cardio: No palpitations/irregular beats, no chest pain GI: No abdominal pain, no nausea/vomiting : Denies pain on urination Skin: No jaundice, itching or new rashes Physical Exam Constitutional: WD/WN, vitals as above Eyes: PERRL, conjunctivae normal, anicteric sclerae ENMT: external ear and nose normal, oropharynx normal Neck: trachea midline, no thyromegaly Respiratory: normal respiratory effort, lungs clear to auscultation Cardiovascular: RRR, no murmur, no edema Gastrointestinal (Abdomen): normal bowel sounds, soft, nontender, no hepatosplenomegaly Musculoskeletal: no cyanosis or clubbing, extremities motor strength 5/5 Skin: no rashes, warm and dry Neurologic: PERRL, EOMI, accommodation nl, no face palsy, no dysarthria Psychiatric: A+Ox3, euthymic affect Lymphatic: no cervical or axillary lymphadenopathy Results & Data ([facility]) Vital Signs (Past 12 Hours) Vital Signs Temp Pulse Resp BP Pulse Ox 09/22/20 11:47 36.5 C 56 L 20 133/70 95 09/22/20 07:16 37.0 C 68 20 155/97 H 97 09/22/20 03:14 36.5 C 98 H 18 118/70 98 Laboratory Results Na 139, K 3.6, BUN 7, Cr 0.66 See HPI for LFTs Diagnostic Findings MRCP 09/18/20: 1. No biliary ductal calculi identified 2. No biliary ductal dilatation. No pancreatic ductal dilatation. 3. Low volume ascites 4. Splenomegaly 5. 7 mm cystic lesion within the pancreatic body likely representing a side branch IPMN 6. Equivocal mild pancreatic edema. Clinical correlation with regards to interstitial or autoimmune pancreatitis recommended CT abd pelvis 09/17/20: No evidence of bowel obstruction. No evidence of free air 2. Normal appendix. No evidence of acute diverticulitis 3. Minor gallbladder wall thickening 4. Low volume ascites 5. Splenomegaly 6. Equivocal mild pancreatic edema with minimal infiltration of peripancreatic fat. Correlate with appropriate biochemical markers with regards to acute pancreatitis. 7. 8 mm cystic lesion within the pancreatic neck 8. Possible hepatic cirrhosis (1) Pancreatitis Acute pancreatitis complication: unspecified Chronicity: acute Pancreatitis type: unspecified pancreatitis type Qualified Code(s): K85.90 - Acute pancreatitis without necrosis or infection, unspecified
--- NOTE | 2020-09-22 18:25 | Hospitalist Progress Note ---
Date of Service September 22, 2020 Assessment & Plan (1) Pancreatitis: Acute interstitial pancreatitis-resolving lipase is down below 800 from 28,[address] of abdomen and pelvis. Diet now advanced to regular discontinuing IV fluid GI consultation, continues to follow : recommend prednisolone 40mg/day x an addtional 2 weeks, then 30mg/day x 1 wk, then 20mg/day x 1 wk, then 10 mg/day x 1 week stop. Continue with thiamine and folate supplementation Likely has cirrhosis Discussed the importance of abstinence from alcohol MRCP 09/18/20 IMPRESSION: 1. No biliary ductal calculi identified 2. No biliary ductal dilatation. No pancreatic ductal dilatation. 3. Low volume ascites 4. Splenomegaly 5. 7 mm cystic lesion within the pancreatic body likely representing a side branch IPMN 6. Equivocal mild pancreatic edema. (2) Gout: Allopurinol 300 mg daily (3) Hypertension: Metoprolol tartrate 50 mg p.o. twice daily with hold parameters (4) Alcoholic hepatitis: Continue prednisone/prednisolone 45 mg p.o. daily Patient's bilirubin AST are improing (5) History of alcohol abuse: Reports abstinence x1 month denies recent alcohol use (6) Coagulopathy: remains mildly elevated , will not have chemoprophylaxis Admission and Anticipated Discharge Date Admission Date: September 17, 2020 Subjective 50 yr old male admitted on 09/18 for jaundice, w ETOH hepatitis and pancreatitis, Abstaining x approx 1 wk prior to admission. Feels well. Ambulating. Eating a regular diet w/o any nausea or abd pain. LFTs improving on steroids T bili on 09/18/20 was 8.4->4.2 today. AST 114->65, ALT 126->83, Alk Phos 207->172. Cr has remained normal, Review of Systems Review of Systems: Mild distress and fatigue patient is obviously jaundiced no headache, blurry or double vision no speech or swallowing issues no chest pain, pressure or palpitations no shortness of breath, cough or wheezes Mild abdominal pain less distention still some bloating though no dysuria, hematuria or frequency no focal joint pain or swelling no back pain, CVA tenderness or radicular pain no bruising, bleeding or rashes he denies having itching no focal signs of weakness or numbness or altered sensation no complaints of anxiety or depression.. Physical Exam Physical Exam: The patient appeared jaundiced with a protuberant abdomen no caput medusa seen Vital signs as documented. Head exam is normocephalic atraumatic scleral icterus is noted Neck is without JVD, thyromegaly, or carotid bruits. Lungs are clear to auscultation, exception of diminished breath sounds at the bases Cardiac exam, Rhythm is regular.. No murmurs, rubs or gallops. Abdominal exam reveals normal bowel sounds, soft slightly distended nontender Extremities are nonedematous and both pedal pulses are present Neurologic exam is alert and oriented, no focal loss of strength or sensation Skin is with jaundice Psychologically is without concerns for anxiety or depression Results & Data Results & Data ([facility]) Vital Signs (Past 12 Hours) Vital Signs Temp Pulse Resp BP Pulse Ox 09/22/20 15:23 98.1 F 71 20 133/72 97 09/22/20 11:47 97.7 F 56 L 20 133/70 95 09/22/20 07:16 98.6 F 68 20 155/97 H 97 PG Care Time/CCT Total # of Minutes Spent Total Time Spent with Patient: Total time spent is greater than 50% in coordination of care (as documented) at patient's floor/unit and/or counseling patient: Coding Level of Care Code 17690 Subseq Hosp Care Lvl 2 Diagnoses Pancreatitis K85.90 Acute pancreatitis complication: unspecified Chronicity: acute Pancreatitis type: unspecified pancreatitis type Gout M10.9 Hypertension I10 Alcoholic hepatitis K70.10 History of alcohol abuse F10.11 Coagulopathy D68.9 (1) Pancreatitis Acute pancreatitis complication: unspecified Chronicity: acute Pancreatitis type: unspecified pancreatitis type Qualified Code(s): K85.90 - Acute pancreatitis without necrosis or infection, unspecified
[2020-09-22] MEDS: allopurinoL 300 MG TAB PO SCH (20:58)
[2020-09-22] MEDS: ZOLPIDEM TARTRATE 5 MG TAB PO PRN (22:52)
[2020-09-23] MEDS: NSS + 20MEQ KCL 20 MEQ/1,000 ML BAG IV SCH ×2 (04:58→09:59)
[2020-09-23] MEDS: METOPROLOL TARTRATE 50 MG TAB PO SCH (08:13)
[2020-09-23] MEDS: POLYETHYLENE (MIRALAX) 17 GM PACK PO SCH (08:13)
[2020-09-23] MEDS: predniSONE 10 MG TABLET PO SCH (08:13)
[2020-09-23] MEDS: CHOLESTYRAMINE LIGHT 4 GM PKT PO SCH (10:42)
--- NOTE | 2020-09-23 17:31 | Discharge Summary ---
Date of Service September 23, 2020 Admission HPI Per Admitting Provider The patient is a 50-year-old male with a past medical history including alcoholic hepatitis, alcohol abuse, gout, hypertension, insomnia, elevated bilirubin and jaundice. He was most recently mid to [facility] from 09/07- 09/09/2020 for treatment of alcoholic hepatitis, which time he was discharged on additional medication prednisolone, which is presently at 45 mg daily. He developed 2 days of epigastric and left-sided abdominal pain, and left flank pain. He denies alcohol use in the past month. Significant laboratories: WBC 13.51, hemoglobin 13.6, hematocrit 38.7, INR 1.5, total bilirubin 8.8, direct bilirubin 5.8, AST 151, ALT 146, ammonia 53.3, albumin 2.4, lipase 28,812. CT scan of abdomen and pelvis: Acute interstitial pancreatitis Principal Diagnosis Pancreatitis Cirrhosis secondary alcohol use alcoholic hepatitis resolving Discharge Exam The patient appeared well jaundice is receding Vital signs as documented. Lungs are clear to auscultation and appear unlabored Cardiac exam, Rhythm is regular.. No murmurs, rubs or gallops. Abdominal exam reveals normal bowel sounds, soft non tender, no masses no defined hepatomegaly Extremities are nonedematous and both pedal pulses are normal. Neurologic exam is alert and oriented, no focal loss of strength or sensation Skin is with receding jaundice Psychologically is without concerns for anxiety or depression. Discharge Data Allergies Allergy/AdvReac Type Severity Reaction Status Date / Time No Known Drug Allergies Allergy Verified 09/17/20 21:56 Consultations 09/17/20 22:34 ED Decision to Admit Stat 09/18/20 04:23 Consult Gastroenterology Routine Ordered Studies 09/17/20 21:33 CT abd pelvis IV con only Urgent 09/18/20 07:37 MR MRCP Stat Hospital Course (1) Pancreatitis: Acute interstitial pancreatitis-resolving lipase is down below 800 from 28 ,[address] of abdomen and pelvis. Diet now advanced to regular discontinuing IV fluid GI consultation, continues to follow : recommend prednisolone 40mg/day x an addtional 2 weeks, then 30mg/day x 1 wk, then 20mg/day x 1 wk, then 10 mg/day x 1 week stop. Given difficulty dosing prednisolone the doses will be 45 mg for the first 30 mg of the second 22.5 for the third and 9 mg for the last given its a liquid form out Continue cessation of alcohol and multiple vitamin supplementation [id number] Likely has cirrhosis MRCP 09/18/20 IMPRESSION: 1. No biliary ductal calculi identified 2. No biliary ductal dilatation. No pancreatic ductal dilatation. 3. Low volume ascites 4. Splenomegaly 5. 7 mm cystic lesion within the pancreatic body likely representing a side branch IPMN 6. Equivocal mild pancreatic edema. (2) Gout: Allopurinol 300 mg daily (3) Hypertension: Metoprolol tartrate 50 mg p.o. twice daily with hold parameters (4) Alcoholic hepatitis: Continue prednisone/prednisolone tapering dosage as outlined above Patient's bilirubin AST are improving Follow with GI medicine (5) History of alcohol abuse: Reports abstinence x1 month denies recent alcohol use (6) Coagulopathy: remains mildly elevated , will not have chemoprophylaxis Total Time Total Time Spent Total Time Spent (In Minutes): It required greater than 30 minutes to prepare this patient for discharge Discharge Plan Discharge Items Patient Disposition: Home - Self-Care Reason For Visit: PANCREATITIS, HEPATITIS Discharge Diagnosis: pancreatitis liver inflamation Activity: Per Instructions section Lifting: Gradually increase as tolerated Non-emergency contact: Primary Care Provider and Special Effects Designer Call non-emergency contact if: you have any medication questions and your symptoms worsen Follow-up/Referrals: Marino Mccullough CRNP [Primary Care Provider] - 09/29/20 8:40 am Cristal Abdi CRNP [Nurse Practitioner] - 10/14/20 10:45 am (this apt is with [facility]) Diet: Low Fat and Low Sodium (2gm) Ambulatory Orders: Comprehensive Metabolic Panel (Routine) Timeframe: 1 Week Location: Determined by Patient Ordered By: Pedro Byrne Lipase (Routine) Timeframe: 1 Week Location: Determined by Patient Ordered By: Pedro Byrne Addtl Attending Provider Instructions: please eat a healthy low fat low salt diet be [facility] please avoid things that may irritate you liver including alcohol Pending Studies at Discharge: No Stand-Alone Forms: My Qlue, Work/School Release (Inpt), Smoking Cessation Medications and DC Order Prescriptions: Continued bismuth subsalicylate [Pepto-Bismol] 262 mg/15 mL Suspension 524 mg PO QID PRN (Reason: gastric upset) RF: 0 aluminum hydrox-magnesium carb 160-105 mg Tablet,Chewable 2 tab PO QAM RF: 0 metoprolol tartrate 50 mg tablet 50 mg PO BID RF: 0 allopurinol 300 mg tablet 300 mg PO HS RF: 0 colchicine 0.6 mg tablet 0 mg PO DIRECTED PRN (Reason: GOUT FLARE UPS) RF: 0 Cholestyramine Light 4 gram Powder In Packet 4 g PO BID@1000,2200 Qty: 30 RF: 0 zolpidem [Ambien] 5 mg tablet 5 mg PO HS PRN (Reason: insomnia) Qty: 10 RF: 0 Changed prednisolone 15 mg/5 mL Solution 45 mg PO UD Qty: 480 RF: 0 Discharge Orders: Discharge Order (Routine); Ordered 09/23/20 Ordered By: Pedro Byrne Admission Data Admit Date/Time: 09/17/20 23:39 Attending Provider: Pedro Byrne Admit Provider: Kvng Camarena Primary Care Provider: Marino Mccullough Other Providers: Kvng Camarena ; Ben Phillips Other Interventions: Discharge Summary Assessment (RN) Last Done: 09/23/20 11:27 Coding Level of Care Code D/C Day Management >30 mins Diagnoses Pancreatitis K85.90 Acute pancreatitis complication: unspecified Chronicity: acute Pancreatitis type: unspecified pancreatitis type Gout M10.9 Hypertension I10 Alcoholic hepatitis K70.10 History of alcohol abuse F10.11 Coagulopathy D68.9
== END 2020-09-23 13:01 | disposition home or self-care (01) | DRG 439 ==
LOC: ED 21:03 → 2S 23:39 → SUATTDRO 23:39 → 2S 09-18 00:04

== ENCOUNTER 2021-02-17 16:57 | Inpatient (IN) ==
[2021-02-17 18:24] LABS: Basophils # (auto) 0.07 K/uL (0-0.2); Basophils % (auto) 0.7 %; Eosinophils # (auto) 0.33 K/uL (0-0.5); Eosinophils % (auto) 3.3 %; Hematocrit (blood only) 40.9 % (42-52); Hemoglobin 15.1 g/dL (14.0-18.0); Immature Granulocytes # (auto) 0.05 K/uL (0.00-0.02); Immature Granulocytes % (auto) 0.5 %; Lymphocytes # (auto) 0.97 K/uL (1.2-3.4); Lymphocytes % (auto) 9.7 %; Mean Corpuscular Hemoglobin 33.2 pg (25-34); Mean Corpuscular Hgb Conc 36.9 g/dL (32-36); Mean Corpuscular Volume 89.9 fL (80-100); Mean Platelet Volume 11.5 fL (7.4-10.4); Monocytes # (auto) 1.74 K/uL (0.11-0.59); Monocytes % (auto) 17.4 %; Neutrophils # (auto) 6.82 K/uL (1.4-6.5); Neutrophils % (auto) 68.4 %; Platelet Count 163 K/uL (130-400); RDW Coefficient of Variation 20.9 % (11.5-14.5); RDW Standard Deviation 67.9 fL (36.4-46.3); Red Blood Count 4.55 M/uL (4.7-6.1); White Blood Count 9.98 K/uL (4.8-10.8)
[2021-02-17 19:03] LABS: Alanine Aminotransferase 197 U/L (12-78); Alkaline Phosphatase 217 U/L (45-117); Aspartate Aminotransferase 369 U/L (15-37); Bilirubin,Total 29.6 mg/dl (0.2-1); Blood Urea Nitrogen 13 mg/dl (7-18); Carbon Dioxide 24 mmol/L (21-32); Chloride 102 mmol/L (98-107); Glucose 108 mg/dl (70-99); Lipase 304 U/L (73-393); Potassium 3.7 mmol/L (3.5-5.1); Sodium 135 mmol/L (136-145)
[2021-02-17] MEDS ORDERED: SODIUM CHLORIDE 0.9% 1000ML 2,000 ML IV ONE (19:14)
[2021-02-17] MEDS ORDERED: ONDANSETRON INJ 2 MG/ML 2 ML VIAL IV STA (19:14)
[2021-02-17] MEDS ORDERED: FAMOTIDINE 20MG IV PUSH 20 MG/5 ML SYR IV STA (19:14)
[2021-02-17 19:20] LABS: Echinocytes 1+
[2021-02-17 20:38] LABS: Prothrombin Time 18.8 Seconds (9.0-12.0)
[2021-02-17 20:39] LABS: iSTAT Creatinine 1.2 mg/dl (0.6-1.3); iSTAT Hemoglobin 15.3 g/dl (14.0-18.0); iSTAT Ionized Calcium 1.12 mmol/l (1.12-1.32); iSTAT Potassium 3.4 mmol/L (3.3-5.0)
[2021-02-17] MEDS ORDERED: OPTIRAY 320 100ml IV ONE (20:44)
--- NOTE | 2021-02-17 20:57 | CT Scan Report ---
CT abd pelvis IV con only CLINICAL INDICATION: MN ^B6 LABS ^jaundice. TECHNIQUE: Helical axial images of the abdomen and pelvis were obtained and displayed at 5 and 1 mm i ntervals. Automated dose lowering techniques and/or adjustment according to patient size were utilize d for this exam. This exam was performed with intravenous contrast. COMPARISON: Comparison is made to CT abdomen and pelvis 09/17/2020 FINDINGS: Lower chest: Bibasilar atelectasis is seen. Liver: Nodular contour of the liver is seen compatible with cirrhosis. Gallbladder and biliary tree: Prominent in size with a stone noted in the gallbladder neck. No intra- or extrahepatic biliary ductal dilation. Pancreas: Unremarkable, no focal lesions. Spleen: Unremarkable. Adrenals: Unremarkable. Kidneys and ureters: Unremarkable. Bladder: Mild bladder wall thickening is seen. Reproductive organs: Unremarkable. Bowel: Unremarkable. Lymph nodes Retroperitoneal: Unremarkable. Mesenteric: Unremarkable. Pelvic: Unremarkable. Peritoneum: Moderate ascites is noted. Vessels: Trace atherosclerotic changes. Abdominal wall: Bilateral fat-containing inguinal hernias noted. Small umbilical hernia containing on ly fat is seen. Bones: Degenerative changes in the visualized spine. IMPRESSION: 1. Nodular contour of the liver compatible with cirrhosis. Moderate ascites, significantly increased from prior exam. 2. Distention of the gallbladder compared to the prior exam, with a stone noted in the gallbladder n sandrita. Acute cholecystitis cannot be excluded. If clinical concern remains, right upper quadrant ultras ound can be performed. ACT 112: Negative or not required by law. Electronically signed by: Maulik Zavala M.D. 02/17/2021 8:56 PM
[2021-02-17] MEDS ORDERED: PIPERACILLIN/TAZOBACTAM 4.5 GM in DEXTROSE 5% 100 ML IV ONE (22:18)
[2021-02-17] MEDS ORDERED: PIPERACILL/TAZOBAC CONSULT ACTIVE PRN (22:18)
[2021-02-17] MEDS ORDERED: MULTI-VITAMIN INFUSION 10 ML, THIAMINE HCL 100 MG, FOLIC ACID 1 MG in SODIUM CHLORIDE 0... IV ONE (22:19)
--- NOTE | 2021-02-17 23:28 | Emergency Department Note ---
Impression & Plan Elevated bilirubin, Jaundice, History of alcohol abuse, Alcoholic hepatitis, Cholelithiasis ED Provider Note NAME: ANASTASIYA LI AGE: 50 SEX: M ARRIVES VIA: Walk-In INFORMANT: Patient, ED PROVIDER(S): Enrique Hamilton MD CHIEF COMPLAINT: Abdominal pain. PLAN: Disposition: Admit MEDICAL DECISION MAKING: The patient is a pleasant 50-year-old gentleman with a past medical history of alcoholic hepatitis/cirrhosis who reports he has abstained from alcohol for many months who presents to the emergency department for evaluation of worsening abdominal pain, distention and development of jaundice which she reports is evolved over the past 6 weeks. Patient reports he suspected his symptoms were due to a flare of his hepatitis which improved with steroids in the past and given he had steroids left over he started attempting to treat himself but r eports that he has not improved. He denies any fevers, vomiting, diarrhea or urinary symptoms. He denies any cough or congestion. Denies any known COVID-19 exposures. On arrival the patient is chronically ill-appearing but no acute distress, afebrile with stable vital signs. He appears overtly jaundiced with scleral icterus. His abdomen is mildly distended but is not tense and is soft with mild right upper quadrant and right sided tenderness without guarding or rebound. WBC, hemoglobin and platelets within normal limits. Chemistry without metabolic acidosis. Creatinine needed to be performed via POC given his icterus and this was 1.2. Otherwise LFTs do show elevated bilirubin with total bilirubin 29.6 and direct bilirubin 22.7 increased from prior values. AST, ALT are also elevat ed at 369 and 197, respectively. Patient's INR is elevated at 2.0 compared to prior elevations up to 1.7 though they had normalized following his hospitalization. Medical alcohol was undetectable. Procalcitonin was elevated at 0.7. Initial lactic acid 2.3 with repeat stable to decrease to 2.2 following initial IV fluid hydration. CT of the abdomen pelvis with IV contrast was performed and demonstrates "nodular contour of the liver compatible with cirrhosis. Moderate ascites, significantly increased from prior exam." but also "distension of the gallbladder compared to the prior exam, with a stone noted in the gallbladder neck. Acute cholecystitis cannot be excluded." The patient was ordered for Zosyn. Case was d/w Dr. Jade, general surgery on-call, recommends GI consultation but from a surgical perspective, if needed, would recommend transfer to tertiary care facility given the patient's history of cirrhosis. Case was d/w Dr. Lr, GI on-call, appreciate recommendation for further evaluation for choledocholithiasis but if biliary obstruction is not suggested would recommend transfer to tertiary care facility. Otherwise, could keep here for ERCP and further management. Gallbladder ultrasound performed and limited due to bowel gas and body habitus, CBD was measured to be 5mm, upper end of normal. Case was discussed with Dr. Camarena, [facility] hospitalist, who will evaluate the patient for admission and planned MRCP to further evaluate for choledocholithiasis/bilary obstruction. Triage Nursing notes reviewed and agree them. [facility] Prior medical records reviewed Vital Signs: reviewed and remarkable for no significant abnormalities Differential diagnosis: Appendicitis, testicular torsion, infections, diverticulitis, UTI, obstruction, mesenteric ischemia, aortic pathology, inflammatory bowel disease, renal colic, PUD, pancreatitis, biliary pathology, hernia, volvulus, constipation, as well as other pathologies. ER treatment provided: See below. Diagnostics interpreted by me: Cardiac Monitoring: An order for continuous cardiac monitoring was placed and demonstrated NSR, 67 bpm, no ectopy. Laboratory studies: See below Imaging studies: See below. Consultation(s): Dr. Jade, general surgery on-call. Dr. Lr, GI on-call. Dr. Camarena, [facility] hospitalist HPI: The patient is a pleasant 50-year-old gentleman with a past medical history of alcoholic hepatitis/cirrhosis who reports he has abstained from alcohol for many months who presents to the emergency department for evaluation of worsening abdominal pain, distention and development of jaundice which she reports is evolved over the past 6 weeks. Patient reports he suspected his symptoms were due to a flare of his hepatitis which improved with steroids in the past and given he had steroids left over he started attempting to treat himself but reports that he has not improved. He denies any fevers, vomiting, diarrhea or urinary symptoms. He denies any cough or congestion. Denies any known COVID-19 exposures. ROS: See above HPI for pertinent positives & negatives. A total of 10 systems reviewed and were otherwise negative. PAST MEDICAL HISTORY:See Below PAST SURGICAL HISTORY:See Below FAMILY HISTORY:See Below SOCIAL HISTORY:See Below HOME MEDICATIONS:See Below ALLERGIES:See Below VITALS:See Below PHYSICAL EXAMINATION: GENERAL: Awake, alert, chronically ill-appearing, in no distress HENT: Normocephalic, atraumatic. Oropharynx with dry mucous membranes and otherwise unremarkable. EYES: Normal conjunctiva. Sclera icteric. NECK: Supple. No nuchal rigidity. FROM. No JVD. RESPIRATORY: Clear to auscultation. CARDIAC: Regular rate, normal rhythm. Extremities warm and well perfused. Pulses equal. ABDOMEN: Soft, with mild distension. Mild RUQ and Right sided tenderness to palpation. No rebound or guarding. No masses. RECTAL: Deferred. MUSCULOSKELETAL: Chest examination reveals no tenderness. The back is symmetrical on inspection without obvious abnormality. There is no CVA tenderness to palpation. No joint edema. LOWER EXTREMITIES: Calves are equal size bilaterally and non-tender. No edema. No discoloration. NEURO: Normal sensorium. No sensory or motor deficits noted. SKIN: Overt jaundice noted. Skin warm and dry. No rashes. ED COURSE: Critical Care: I have personally spent greater than 45 minutes of critical care time in the direct management of this patient. This includes bedside care, interpretation o f diagnostic studies, and testing, discussion with consultants, patient, and family members, and other required patient management activities. This 45 minutes is in excess of all separately billable procedures. 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 Grandfather (Paternal) Black lung Uncle Black lung Denies family history of Ovarian cancer Prostate cancer Breast cancer Colorectal cancer Social History Smoking Status: Never smoker Hx Alcohol Use: Yes Alcohol type: hard liquor Hx Substance Use: No Preferred Language: Kinyarwanda Communication Ability: Effective Visual Impairment: No Limitations Hearing Ability: Normal Tower Control Operator Required: No Beliefs That Will Affect Care: None and Holiness Holiness Beliefs: Pt would like last rites marital status: Current Living Situation: Family current occupational status: employed Feels Safe at Home: Yes Diet Comment: well balanced diet caffeine: No during the past year weight has: remained stable Dental Care, Regularly: No Physical Activity Frequency: Other Seatbelt Use: always Sunscreen Use: Yes Assistive Devices: None Allergies Allergies Allergy/AdvReac Type Severity Reaction Status Date / Time No Known Drug Allergies Allergy Unknown Verified 02/17/21 21:43 Home Meds Home Medications Medication Instructions Recorded Confirmed omeprazole 40 mg capsule,delayed 40 mg PO DAILY 02/17/21 02/17/21 release trazodone 100 mg tablet 50 - 100 mg PO HS PRN 02/17/21 02/17/21 Previous Rx's Medication Instructions Recorded allopurinol 300 mg tablet 300 mg PO HS #90 tab 10/20/20 metoprolol tartrate 50 mg tablet 50 mg PO BID #180 tab 10/20/20 Results & Data (ED) Vital Signs Vital Signs - 24 hr 02/17/21 17:21 02/17/21 18:06 02/17/21 18:30 Temperature 36.0 C L Temperature Source Temporal Artery Scan Pulse Rate 66 62 64 Respiratory Rate 20 16 16 Respiratory Effort / Characteristics Non-Labored Respiratory Depth Normal Blood Pressure 111/71 123/76 125/80 Blood Pressure Mean 84 91 95 Pulse Oximetry 97 99 Oxygen Delivery Method Room Air Sepsis Recent Fever Within 48 Hours No Sepsis New/Unexplained Change in Mental Status N/A Sepsis Action Taken by Nursing No Action Required 02/17/21 19:00 02/17/21 19:30 02/17/21 20:00 Temperature Temperature Source Pulse Rate 68 67 68 Respiratory Rate 21 18 15 Respiratory Effort / Characteristics Respiratory Depth Blood Pressure 138/88 128/87 144/94 H Blood Pressure Mean 104 100 110 Pulse Oximetry Oxygen Delivery Method Sepsis Recent Fever Within 48 Hours Sepsis New/Unexplained Change in Mental Status Sepsis Action Taken by Nursing 02/17/21 20:30 02/17/21 21:00 02/17/21 21:30 Temperature Temperature Source Pulse Rate 70 70 70 Respiratory Rate 19 18 21 Respiratory Effort / Characteristics Respiratory Depth Blood Pressure 141/93 H 152/96 H 138/94 Blood Pressure Mean 109 114 108 Pulse Oximetry 98 97 Oxygen Delivery Method Sepsis Recent Fever Within 48 Hours Sepsis New/Unexplained Change in Mental Status Sepsis Action Taken by Nursing 02/17/21 22:01 02/17/21 22:30 02/17/21 23:30 Temperature Temperature Source Pulse Rate 69 67 69 Respiratory Rate 21 17 14 Respiratory Effort / Characteristics Respiratory Depth Blood Pressure 132/93 124/67 131/82 Blood Pressure Mean 106 86 98 Pulse Oximetry 96 92 95 Oxygen Delivery Method Sepsis Recent Fever Within 48 Hours Sepsis New/Unexplained Change in Mental Status Sepsis Action Taken by Nursing 02/18/21 00:01 02/18/21 00:30 02/18/21 01:00 Temperature Temperature Source Pulse Rate 68 63 68 Respiratory Rate 17 18 19 Respiratory Effort / Characteristics Respiratory Depth Blood Pressure 141/68 H 118/68 118/81 Blood Pressure Mean 92 84 93 Pulse Oximetry 94 94 Oxygen Delivery Method Sepsis Recent Fever Within 48 Hours Sepsis New/Unexplained Change in Mental Status Sepsis Action Taken by Nursing 02/18/21 02:28 02/18/21 02:30 Temperature Temperature Source Pulse Rate 63 67 Respiratory Rate 26 H 20 Respiratory Effort / Characteristics Respiratory Depth Blood Pressure 142/82 H Blood Pressure Mean 102 Pulse Oximetry 95 Oxygen Delivery Method Sepsis Recent Fever Within 48 Hours Sepsis New/Unexplained Change in Mental Status Sepsis Action Taken by Nursing Laboratory Data Attestation: I reviewed the patient's lab results. Result diagrams: 02/17/21 18:07 02/17/21 18:07 Lab Results 02/17/21 02/17/21 02/17/21 Range/Units 18:07 18:07 18:07 WBC 9.98 (4.8-10.8) K/uL RBC 4.55 L (4.7-6.1) M/uL Hgb 15.1 (14.0-18.0) g/dL POC Hgb (14.0-18.0) g/dl Hct 40.9 L (42-52) % POC Hct (42-52) % MCV 89.9 (80-100) fL MCH 33.2 (25-34) pg MCHC 36.9 H (32-36) g/dL RDW Std Deviation 67.9 H (36.4-46.3) fL RDW Coeff of Liliay 20.9 H (11.5-14.5) % Plt Count 163 (130-400) K/uL MPV 11.5 H (7.4-10.4) fL Immature Gran % (Auto) 0.5 % Neut % (Auto) 68.4 % Lymph % (Auto) 9.7 % Emmons % (Auto) 17.4 % Eos % (Auto) 3.3 % Baso % (Auto) 0.7 % Neut # (Auto) 6.82 H (1.4-6.5) K/uL Lymph # (Auto) 0.97 L (1.2-3.4) K/uL Emmons # (Auto) 1.74 H (0.11-0.59) K/uL Eos # (Auto) 0.33 (0-0.5) K/uL Baso # (Auto) 0.07 (0-0.2) K/uL Immature Gran # (Auto) 0.05 H (0.00-0.02) K/uL Echinocytes 1+ PT (9.0-12.0) Seconds INR (0.9-1.1) POC Sodium (135-144) mmol/L Sodium 135 L (136-145) mmol/L POC Potassium (3.3-5.0) mmol/L Potassium 3.7 (3.5-5.1) mmol/L POC Chloride (101-112) mmol/L Chloride 102 (98-107) mmol/L Carbon Dioxide 24 (21-32) mmol/L POC Total CO2 (24-31) mmol/L Anion Gap 9.0 (3-11) POC Anion Gap (16-25) mmol/L POC BUN (7-18) mg/dl BUN 13 (7-18) mg/dl Creatinine (0.6-1.4) mg/dl POC Creatinine (0.6-1.3) mg/dl Est Cr Clr Drug Dosing Not Reportable Est GFR ( Amer) Not Reportable Est GFR (Non-Af Amer) Not Reportable BUN/Creatinine Ratio Not Reportable Glucose 108 H (70-99) mg/dl POC Glucose (other) (70-99) mg/dl Lactate (0.4-2.0) mmol/L Calcium 9.0 (8.5-10.1) mg/dl POC Ioniz Calcium Ev (1.12-1.32) mmol/l Total Bilirubin 29.6 H (0.2-1) mg/dl Direct Bilirubin 22.7 H (0-0.2) mg/dl AST 369 H (15-37) U/L ALT 197 H (12-78) U/L Alkaline Phosphatase 217 H (45-117) U/L Total Protein (6.4-8.2) gm/dl Albumin 2.0 L (3.4-5.0) gm/dl Globulin TNP Albumin/Globulin Ratio TNP Lipase 304 (73-393) U/L Procalcitonin (0-0.5) ng/ml Urine Color Urine Appearance (Clear) Urine pH (4.5-7.5) Ur Specific [place] (1.000-1.030) Urine Protein (Negative) Urine Glucose (UA) (Negative) Urine Ketones (Negative) Urine Blood (Negative) Urine Nitrite (Negative) Urine Bilirubin (Negative) Urine Urobilinogen (Negative) Ur Leukocyte Esterase (Negative) Urine WBC (Auto) (0-5) /hpf Urine RBC (Auto) (0-4) /hpf U Hyaline Cast (Auto) (0-5) /lpf U Epithel Cells (Auto) (0-5) /lpf Urine Bacteria (Auto) (Negative) Urine Crystals Ethyl Alcohol mg/dL (0-3) mg/dl COVID-19 Eval Order SARS-CoV-2 (PCR) (Negative) 02/17/21 02/17/21 02/17/21 Range/Units 18:07 20:16 20:16 WBC (4.8-10.8) K/uL RBC (4.7-6.1) M/uL Hgb (14.0-18.0) g/dL POC Hgb (14.0-18.0) g/dl Hct (42-52) % POC Hct (42-52) % MCV (80-100) fL MCH (25-34) pg MCHC (32-36) g/dL RDW Std Deviation (36.4-46.3) fL RDW Coeff of Liliya (11.5-14.5) % Plt Count (130-400) K/uL MPV (7.4-10.4) fL Immature Gran % (Auto) % Neut % (Auto) % Lymph % (Auto) % Emmons % (Auto) % Eos % (Auto) % Baso % (Auto) % Neut # (Auto) (1.4-6.5) K/uL Lymph # (Auto) (1.2-3.4) K/uL Emmons # (Auto) (0.11-0.59) K/uL Eos # (Auto) (0-0.5) K/uL Baso # (Auto) (0-0.2) K/uL Immature Gran # (Auto) (0.00-0.02) K/uL Echinocytes PT 18.8 H (9.0-12.0) Seconds INR 2.0 H (0.9-1.1) POC Sodium (135-144) mmol/L Sodium (136-145) mmol/L POC Potassium (3.3-5.0) mmol/L Potassium (3.5-5.1) mmol/L POC Chloride (101-112) mmol/L Chloride (98-107) mmol/L Carbon Dioxide (21-32) mmol/L POC Total CO2 (24-31) mmol/L Anion Gap (3-11) POC Anion Gap (16-25) mmol/L POC BUN (7-18) mg/dl BUN (7-18) mg/dl Creatinine (0.6-1.4) mg/dl POC Creatinine (0.6-1.3) mg/dl Est Cr Clr Drug Dosing Est GFR ( Amer) Est GFR (Non-Af Amer) BUN/Creatinine Ratio Glucose (70-99) mg/dl POC Glucose (other) (70-99) mg/dl Lactate 2.3 H* (0.4-2.0) mmol/L Calcium (8.5-10.1) mg/dl POC Ioniz Calcium Ev (1.12-1.32) mmol/l Total Bilirubin (0.2-1) mg/dl Direct Bilirubin (0-0.2) mg/dl AST (15-37) U/L ALT (12-78) U/L Alkaline Phosphatase (45-117) U/L Total Protein (6.4-8.2) gm/dl Albumin (3.4-5.0) gm/dl Globulin Albumin/Globulin Ratio Lipase (73-393) U/L Procalcitonin 0.70 H (0-0.5) ng/ml Urine Color Urine Appearance (Clear) Urine pH (4.5-7.5) Ur Specific [place] (1.000-1.030) Urine Protein (Negative) Urine Glucose (UA) (Negative) Urine Ketones (Negative) Urine Blood (Negative) Urine Nitrite (Negative) Urine Bilirubin (Negative) Urine Urobilinogen (Negative) Ur Leukocyte Esterase (Negative) Urine WBC (Auto) (0-5) /hpf Urine RBC (Auto) (0-4) /hpf U Hyaline Cast (Auto) (0-5) /lpf U Epithel Cells (Auto) (0-5) /lpf Urine Bacteria (Auto) (Negative) Urine Crystals Ethyl Alcohol mg/dL (0-3) mg/dl COVID-19 Eval Order SARS-CoV-2 (PCR) (Negative) 02/17/21 02/17/21 02/17/21 Range/Units 20:16 20:19 20:19 WBC (4.8-10.8) K/uL RBC (4.7-6.1) M/uL Hgb (14.0-18.0) g/dL POC Hgb (14.0-18.0) g/dl Hct (42-52) % POC Hct (42-52) % MCV (80-100) fL MCH (25-34) pg MCHC (32-36) g/dL RDW Std Deviation (36.4-46.3) fL RDW Coeff of Liliya (11.5-14.5) % Plt Count (130-400) K/uL MPV (7.4-10.4) fL Immature Gran % (Auto) % Neut % (Auto) % Lymph % (Auto) % Emmons % (Auto) % Eos % (Auto) % Baso % (Auto) % Neut # (Auto) (1.4-6.5) K/uL Lymph # (Auto) (1.2-3.4) K/uL Emmons # (Auto) (0.11-0.59) K/uL Eos # (Auto) (0-0.5) K/uL Baso # (Auto) (0-0.2) K/uL Immature Gran # (Auto) (0.00-0.02) K/uL Echinocytes PT (9.0-12.0) Seconds INR (0.9-1.1) POC Sodium (135-144) mmol/L Sodium (136-145) mmol/L POC Potassium (3.3-5.0) mmol/L Potassium (3.5-5.1) mmol/L POC Chloride (101-112) mmol/L Chloride (98-107) mmol/L Carbon Dioxide (21-32) mmol/L POC Total CO2 (24-31) mmol/L Anion Gap (3-11) POC Anion Gap (16-25) mmol/L POC BUN (7-18) mg/dl BUN (7-18) mg/dl Creatinine (0.6-1.4) mg/dl POC Creatinine (0.6-1.3) mg/dl Est Cr Clr Drug Dosing Est GFR ( Amer) Est GFR (Non-Af Amer) BUN/Creatinine Ratio Glucose (70-99) mg/dl POC Glucose (other) (70-99) mg/dl Lactate (0.4-2.0) mmol/L Calcium (8.5-10.1) mg/dl POC Ioniz Calcium Ev (1.12-1.32) mmol/l Total Bilirubin (0.2-1) mg/dl Direct Bilirubin (0-0.2) mg/dl AST (15-37) U/L ALT (12-78) U/L Alkaline Phosphatase (45-117) U/L Total Protein (6.4-8.2) gm/dl Albumin (3.4-5.0) gm/dl Globulin Albumin/Globulin Ratio Lipase (73-393) U/L Procalcitonin (0-0.5) ng/ml Urine Color Urine Appearance (Clear) Urine pH (4.5-7.5) Ur Specific [place] (1.000-1.030) Urine Protein (Negative) Urine Glucose (UA) (Negative) Urine Ketones (Negative) Urine Blood (Negative) Urine Nitrite (Negative) Urine Bilirubin (Negative) Urine Urobilinogen (Negative) Ur Leukocyte Esterase (Negative) Urine WBC (Auto) (0-5) /hpf Urine RBC (Auto) (0-4) /hpf U Hyaline Cast (Auto) (0-5) /lpf U Epithel Cells (Auto) (0-5) /lpf Urine Bacteria (Auto) (Negative) Urine Crystals Ethyl Alcohol mg/dL < 3.0 (0-3) mg/dl COVID-19 Eval Order Covid19 at [facility] SARS-CoV-2 (PCR) NEGATIVE (Negative) 02/17/21 02/17/21 02/18/21 Range/Units 20:26 22:38 01:34 WBC (4.8-10.8) K/uL RBC (4.7-6.1) M/uL Hgb (14.0-18.0) g/dL POC Hgb 15.3 (14.0-18.0) g/dl Hct (42-52) % POC Hct 45 (42-52) % MCV (80-100) fL MCH (25-34) pg MCHC (32-36) g/dL RDW Std Deviation (36.4-46.3) fL RDW Coeff of Liliya (11.5-14.5) % Plt Count (130-400) K/uL MPV (7.4-10.4) fL Immature Gran % (Auto) % Neut % (Auto) % Lymph % (Auto) % Emmons % (Auto) % Eos % (Auto) % Baso % (Auto) % Neut # (Auto) (1.4-6.5) K/uL Lymph # (Auto) (1.2-3.4) K/uL Emmons # (Auto) (0.11-0.59) K/uL Eos # (Auto) (0-0.5) K/uL Baso # (Auto) (0-0.2) K/uL Immature Gran # (Auto) (0.00-0.02) K/uL Echinocytes PT (9.0-12.0) Seconds INR (0.9-1.1) POC Sodium 137 (135-144) mmol/L Sodium (136-145) mmol/L POC Potassium 3.4 (3.3-5.0) mmol/L Potassium (3.5-5.1) mmol/L POC Chloride 100 L (101-112) mmol/L Chloride (98-107) mmol/L Carbon Dioxide (21-32) mmol/L POC Total CO2 23 L (24-31) mmol/L Anion Gap (3-11) POC Anion Gap 19.0 (16-25) mmol/L POC BUN 13 (7-18) mg/dl BUN (7-18) mg/dl Creatinine (0.6-1.4) mg/dl POC Creatinine 1.2 (0.6-1.3) mg/dl Est Cr Clr Drug Dosing Est GFR ( Amer) Est GFR (Non-Af Amer) BUN/Creatinine Ratio Glucose (70-99) mg/dl POC Glucose (other) 110 H (70-99) mg/dl Lactate 2.2 H* (0.4-2.0) mmol/L Calcium (8.5-10.1) mg/dl POC Ioniz Calcium Ev 1.12 (1.12-1.32) mmol/l Total Bilirubin (0.2-1) mg/dl Direct Bilirubin (0-0.2) mg/dl AST (15-37) U/L ALT (12-78) U/L Alkaline Phosphatase (45-117) U/L Total Protein (6.4-8.2) gm/dl Albumin (3.4-5.0) gm/dl Globulin Albumin/Globulin Ratio Lipase (73-393) U/L Procalcitonin (0-0.5) ng/ml Urine Color Dark Yellow Urine Appearance Cloudy A (Clear) Urine pH 7.0 (4.5-7.5) Ur Specific [place] 1.045 H (1.000-1.030) Urine Protein Trace H (Negative) Urine Glucose (UA) Negative (Negative) Urine Ketones Negative (Negative) Urine Blood Negative (Negative) Urine Nitrite Positive A (Negative) Urine Bilirubin 3+ H (Negative) Urine Urobilinogen Negative (Negative) Ur Leukocyte Esterase 1+ H (Negative) Urine WBC (Auto) 0 (0-5) /hpf Urine RBC (Auto) 0-4 (0-4) /hpf U Hyaline Cast (Auto) 1-5 (0-5) /lpf U Epithel Cells (Auto) 0-5 (0-5) /lpf Urine Bacteria (Auto) Negative (Negative) Urine Crystals Not Reportable Ethyl Alcohol mg/dL (0-3) mg/dl COVID-19 Eval Order SARS-CoV-2 (PCR) (Negative) Administered Medications Discontinued Medications Sodium Chloride (Nss 1000ml) 2,000 mls @ 999 mls/hr IV .Q2H1M ONE Stop: 02/17/21 21:14 Last Infusion: 02/17/21 22:11 Dose: 0 mls/hr Documented by: [id number] Admin: 02/17/21 19:40 Dose: 999 mls/hr Documented by: [id number] Famotidine (Pepcid 20mg Iv Push) 20 mg in 5 mls @ 2.5 mls/min IV NOW STA Stop: 02/17/21 19:15 Last Admin: 02/17/21 19:41 Dose: 2.5 mls/min Documented by: [id number] Piperacillin Sod/Tazobactam (Sod 4.5 gm/ Dextrose) 120 mls @ 200 mls/hr IV NOW ONE; Protocol Stop: 02/17/21 22:53 Last Infusion: 02/18/21 00:39 Dose: 0 mls/hr Documented by: [id number] Admin: 02/17/21 23:26 Dose: 200 mls/hr Documented by: [id number] Multivitamins 10 ml/ Thiamine HCl 100 mg/ Folic Acid 1 mg/Sodium Chloride 1,011.2 mls @ 1,011.2 mls/hr IV .Q1H ONE Stop: 02/17/21 23:18 Last Infusion: 02/18/21 00:55 Dose: 0 mls/hr Documented by: [id number] Admin: 02/17/21 23:53 Dose: 1,011.2 mls/hr Documented by: [id number] Ioversol (Optiray 320 100ml) 95 ml IV ONCE ONE Stop: 02/17/21 20:45 Last Admin: 02/17/21 20:44 Dose: 95 ml Documented by: [id number] Ondansetron HCl (Ondansetron Inj 2 Mg/Ml 2 Ml Vial) 4 mg IV NOW STA Stop: 02/17/21 19:15 Last Admin: 02/17/21 19:41 Dose: 4 mg Documented by: [id number] Imaging Data Radiologist's Impression: Abdomen/Pelvis CT 02/17/21 19:16 CT abd pelvis IV con only CLINICAL INDICATION: [place] ^B6 LABS ^jaundice. TECHNIQUE: Helical axial images of the abdomen and pelvis were obtained and displayed at 5 and 1 mm intervals. Automated dose lowering techniques and/or adjustment according to patient size were utilized for this exam. This exam was performed with intravenous contrast. COMPARISON: Comparison is made to CT abdomen and pelvis 09/17/2020 FINDINGS: Lower chest: Bibasilar atelectasis is seen. Liver: Nodular contour of the liver is seen compatible with cirrhosis. Gallbladder and biliary tree: Prominent in size with a stone noted in the gallbladder neck. No intra- or extrahepatic biliary ductal dilation. Pancreas: Unremarkable, no focal lesions. Spleen: Unremarkable. Adrenals: Unremarkable. Kidneys and ureters: Unremarkable. Bladder: Mild bladder wall thickening is seen. Reproductive organs: Unremarkable. Bowel: Unremarkable. Lymph nodes Retroperitoneal: Unremarkable. Mesenteric: Unremarkable. Pelvic: Unremarkable. Peritoneum: Moderate ascites is noted. Vessels: Trace atherosclerotic changes. Abdominal wall: Bilateral fat-containing inguinal hernias noted. Small umbilical hernia containing only fat is seen. Bones: Degenerative changes in the visualized spine. IMPRESSION: 1. Nodular contour of the liver compatible with cirrhosis. Moderate ascites, significantly increased from prior exam. 2. Distention of the gallbladder compared to the prior exam, with a stone noted in the gallbladder neck. Acute cholecystitis cannot be excluded. If clinical concern remains, right upper quadrant ultrasound can be performed. ACT 112: Negative or not required by law. Electronically signed by: Maulik Zavala M.D. 02/17/2021 8:56 PM [facility] Preliminary Findings Only See Final Report For Complete Findings US RUQ: Exam is limited due to gas artifact in the bowel. The extraosseous obscured. Heterogeneous liver suggestive of chronic liver disease or cirrhosis. Moderate to large ascites. Artifact versus thrombosis of the portal vein. Small venous structures along the daniela hepatis, cannot exclude varicosities. Hepatic veins appear patent with normal flow. There is sludge within the gallbladder, gallbladder wall measures 7 mm, nonspecific in the context of liver disease. The region of the gallbladder neck is obscured due to gas artifact in the stomach. The common bile that measures 5 mm, normal pedal Normal right kidney measuring 13.8 cm.. Radiologist: Mireille Moreno MD Study ready at 23:47 and initial results transmitted at 00:07 Discharge Plan Visit Data Chief Complaint: GI Assessment Stated Complaint: DISTENDED STOMACH, PAIN IN L SIDE, VOMITING, WEAK ED Provider: Enrique Hamilton Discharge Problem: Elevated bilirubin, Jaundice, History of alcohol abuse, Alcoholic hepatitis, Cholelithiasis Forms Stand Alone Forms: [facility] Prescriptions Prescriptions: No Action allopurinol 300 mg tablet 300 mg PO HS Qty: 90 RF: 1 metoprolol tartrate 50 mg tablet 50 mg PO BID Qty: 180 RF: 1 trazodone 100 mg tablet 50 - 100 mg PO HS PRN (Reason: Sleep) RF: 0 omeprazole 40 mg capsule,delayed release(DR/EC) 40 mg PO DAILY RF: 0 Referrals Referrals: Marino Mccullough CRNP [Primary Care Provider] -
[2021-02-18 01:52] LABS: Appearance Urine Cloudy (Clear); Bacteria Urine Automated Negative (Negative); Blood Urine Negative (Negative); Color Urine Dark Yellow; Epithelial Cell Urine Auto 0-5 /lpf (0-5); Glucose Urine UA Negative (Negative); Ketones Urine Negative (Negative); Leukocyte Esterase Urine 1+ (Negative); Nitrite Urine Positive (Negative); Protein Urine Trace (Negative); RBC Urine Automated 0-4 /hpf (0-4); Specific Gravity Urine 1.045 (1.000-1.030); Urobilinogen Urine Negative (Negative); WBC Urine Automated 0 /hpf (0-5)
[2021-02-18 01:56] LABS: Bilirubin Urine 3+ (Negative)
[2021-02-18] MEDS ORDERED: ONDANSETRON INJ 2 MG/ML 2 ML VIAL IV PRN (05:19)
[2021-02-18] MEDS ORDERED: traZODone HCL 50 MG TAB PO PRN (05:19)
[2021-02-18] MEDS: PIPERACILLIN/TAZOBACTAM 3.375 GM in DEXTROSE 5% 100 ML IV SCH ×3 (06:19→21:31)
--- NOTE | 2021-02-18 06:22 | History & Physical Report ---
Date of Service February 18, 2021 Assessment & Plan (1) Liver cirrhosis: Plan: Liver cirrhosis/ascites/anasarca/jaundice/cholelithiasis- Patient underwent extensive work-up in the emergency department including CT abdomen pelvis with contrast, and then was ordered ultrasound of abdomen by the ED. The patient's MRCP was delayed, and results have returned late this morning showing moderate ascites and over distended gallbladder with no distinct stones. The extrahepatic biliary tree was suboptimally seen. There is mild splenomegaly noted. The patient was started on Zosyn in the emergency department will be continued CT scan of abdomen pelvis had noted cirrhosis and a stone in the gallbladder neck, which was not noted on MRCP, with question of possible passage of the stone. We will consult gastroenterology, to see if the patient should remain at [facility], or be referred to tertiary care center, if there is a bed available which has not been the case as of late (2) Ascites: Plan: See above (3) Anasarca: Plan: See above (4) Cholelithiasis: Plan: See above (5) Jaundice: Plan: See above (6) GERD without esophagitis: Plan: Continue omeprazole/pantoprazole daily (7) IPMN (intraductal papillary mucinous neoplasm): Plan: Noted on previous imaging (8) Hypertension: Plan: Continue metoprolol tartrate 50 mg p.o. twice daily with hold parameters (9) History of alcohol abuse: Plan: He reports his last intake was 6 months ago Admission and Anticipated Discharge Date Admission Date: February 18, 2021 History of Present Illness Chief Complaint: The patient presents to the emergency department with complaint of worsening abdominal pain and distention, jaundice, generalized fatigue and shortness of breath over the past 6 weeks. Primary Care Provider: DAPHNIE Mart The patient is a 50-year-old male with a past medical history including GERD without esophagitis, IPMN, coagulopathy, pancreatitis, gout, hypertension, alcoholic hepatitis, history of alcohol abuse, elevated bilirubin, jaundice, and obesity. Patient reports his last alcohol intake was [address] of the abdomen and pelvis with IV contrast: Nodular contour of the liver compatible with cirrhosis. Moderate ascites significantly increased from prior exam. Distention of gallbladder compared to the prior exam with a stone noted in the gallbladder neck. Acute cholecystitis cannot be excluded. The ED discussed the case with general surgery Dr. Jade, who recommended that the patient required surgery, he should be transferred to a tertiary care facility, but in the meantime recommend a GI consult. GI consult Dr. Lr suggested further evaluation for choledocholithiasis, but if bili obstruction was not suggestive would recommend transfer to a tertiary care facility. The patient's case was then presented to medicine, and we ordered an MRCP. Allergies Allergy/AdvReac Type Severity Reaction Status Date / Time No Known Drug Allergies Allergy Unknown Verified 02/17/21 21:43 Home Medications Medication Instructions Recorded Confirmed Type allopurinol 300 mg tablet 300 mg PO HS #90 tab 10/20/20 02/17/21 Rx metoprolol tartrate 50 mg tablet 50 mg PO BID #180 tab 10/20/20 02/17/21 Rx omeprazole 40 mg capsule,delayed 40 mg PO DAILY 02/17/21 02/17/21 History release trazodone 100 mg tablet 50 - 100 mg PO HS PRN 02/17/21 02/17/21 History Past Med/Surg History Medical History Elevated bilirubin GERD without esophagitis Gout History of alcohol abuse IPMN (intraductal papillary mucinous neoplasm) (~09/18/20) 7 mm cystic lesion within the pancreatic body likely representing a side branch IPMN Jaundice Surgical History H/O knee surgery left x 2 No pertinent past surgical history Family History Family/Other Myocardial infarction patient notes several [facility] on father and mothers side Mother Kidney disease Grandmother (Paternal) Diabetes Grandfather (Maternal) Black lung Grandfather No problems noted. Grandfather (Paternal) Black lung Uncle Black lung Denies family history of Ovarian cancer Prostate cancer Breast cancer Colorectal cancer Social History Smoking Status: Never smoker Second Hand Exposure: No; Do You Dip or Chew Tobacco: No; Tobacco Cessation Education Requested by Patient: No Hx Alcohol Use: Yes Alcohol type: wine Hx Substance Use: No Preferred Language: Lao Communication Ability: Effective Visual Impairment: No Limitations Hearing Ability: Normal Rehabilitation Specialist Required: No Beliefs That Will Affect Care: None marital status: Current Living Situation: Family current occupational status: employed Other Information That Helps Us Care for You: No Feels Safe at Home: Yes Safety Concerns: Feels Safe At This Time Diet Comment: well balanced diet caffeine: No during the past year weight has: remained stable Dental Care, Regularly: No Physical Activity Frequency: Other Seatbelt Use: always Sunscreen Use: Yes Assistive Devices: None Review of Systems Review of Systems: The patient denies chest pain, palpitations, cough, sore throat, fevers, chills, sweats, nausea, vomiting, diarrhea , constipation, blood in urine or stool, dysuria, urinary frequency or urgency, lightheadedness, dizziness, headache, memory loss, loss of consciousness, rash, abnormal bruising or bleeding, imbalance, focal weakness, numbness or tingling in arms or legs, back or neck pain, or night sweats. The review of systems is otherwise negative other than for that already noted above, and at least 10 systems have been reviewed. Physical Exam Physical Exam: The patient is awake, alert and oriented 3, well developed and well nourished, normocephalic and atraumatic, standing upright/walking in the room, and in no acute distress. HEENT--PERRL, EOMI, mucous membranes and oropharynx normal, scleral icterus Neck--supple. No JVD. No bruits. Thyroid normal, trachea midline, no adenopathy. Heart--normal S1 and S2. No murmurs, rubs or gallops. Lungs--clear bilaterally, no respiratory distress, no accessory muscle use. Abdomen--normal bowel sounds and soft. Nontender. Nondistended. Obese. Extremities--no cyanosis or clubbing. 1+ bilateral pretibial pitting edema Dermatologic--skin is jaundiced. Neurologic--cranial nerves II through XII grossly intact. Rheumatologic--normal range of motion. Psychiatric--normal affect. Results & Data Results & Data ([facility]) Vital Signs (Past 12 Hours) Vital Signs Temp Pulse Pulse Resp BP BP Pulse Ox 02/18/21 05:50 69 02/18/21 04:30 75 16 144/81 H 93 02/18/21 04:00 97.9 F 71 68 16 120/73 126/75 96 02/18/21 03:30 69 14 124/86 93 10/01/21 03:00 71 16 136/87 94 02/18/21 02:30 67 20 142/82 H 95 02/18/21 02:28 63 26 H 02/18/21 01:00 68 19 118/81 02/18/21 00:30 63 18 118/68 94 02/18/21 00:01 68 17 141/68 H 94 02/17/21 23:30 69 14 131/82 95 02/17/21 22:30 67 17 124/67 92 02/17/21 22:01 69 21 132/93 96 02/17/21 21:30 70 21 138/94 97 02/17/21 21:00 70 18 152/96 H 98 02/17/21 20:30 70 19 141/93 H 02/17/21 20:00 68 15 144/94 H 02/17/21 19:30 67 18 128/87 02/17/21 19:00 68 21 138/88 02/17/21 18:30 64 16 125/80 Laboratory Results Laboratory Results WBC 9.98 K/uL (4.8-10.8) 02/17/21 18:07 RBC 4.55 M/uL (4.7-6.1) L 02/17/21 18:07 Hgb 15.1 g/dL (14.0-18.0) 02/17/21 18:07 POC Hgb 15.3 g/dl (14.0-18.0) 02/17/21 20:26 Hct 40.9 % (42-52) L 02/17/21 18:07 POC Hct 45 % (42-52) 02/17/21 20:26 MCV 89.9 fL (80-100) 02/17/21 18:07 MCH 33.2 pg (25-34) 02/17/21 18:07 MCHC 36.9 g/dL (32-36) H 02/17/21 18:07 RDW Std Deviation 67.9 fL (36.4-46.3) H 02/17/21 18:07 RDW Coeff of Liliya 20.9 % (11.5-14.5) H 02/17/21 18:07 Plt Count 163 K/uL (130-400) 02/17/21 18:07 MPV 11.5 fL (7.4-10.4) H 02/17/21 18:07 Immature Gran % (Auto) 0.5 % 02/17/21 18:07 Neut % (Auto) 68.4 % 02/17/21 18:07 Lymph % (Auto) 9.7 % 02/17/21 18:07 [place] % (Auto) 17.4 % 02/17/21 18:07 Eos % (Auto) 3.3 % 02/17/21 18:07 Baso % (Auto) 0.7 % 02/17/21 18:07 Neut # (Auto) 6.82 K/uL (1.4-6.5) H 02/17/21 18:07 Lymph # (Auto) 0.97 K/uL (1.2-3.4) L 02/17/21 18:07 [place] # (Auto) 1.74 K/uL (0.11-0.59) H 02/17/21 18:07 Eos # (Auto) 0.33 K/uL (0-0.5) 02/17/21 18:07 Baso # (Auto) 0.07 K/uL (0-0.2) 02/17/21 18:07 Immature Gran # (Auto) 0.05 K/uL (0.00-0.02) H 02/17/21 18:07 Echinocytes 1+ 02/17/21 18:07 PT 18.8 Seconds (9.0-12.0) H 02/17/21 20:16 INR 2.0 (0.9-1.1) H 02/17/21 20:16 POC Sodium 137 mmol/L (135-144) 02/17/21 20:26 Sodium 135 mmol/L (136-145) L 02/17/21 18:07 POC Potassium 3.4 mmol/L (3.3-5.0) 02/17/21 20:26 Potassium 3.7 mmol/L (3.5-5.1) 02/17/21 18:07 POC Chloride 100 mmol/L (101-112) L 02/17/21 20:26 Chloride 102 mmol/L (98-107) 02/17/21 18:07 Carbon Dioxide 24 mmol/L (21-32) 02/17/21 18:07 POC Total CO2 23 mmol/L (24-31) L 02/17/21 20:26 Anion Gap 9.0 (3-11) 02/17/21 18:07 POC Anion Gap 19.0 mmol/L (16-25) 02/17/21 20:26 POC BUN 13 mg/dl (7-18) 02/17/21 20:26 BUN 13 mg/dl (7-18) 02/17/21 18:07 Creatinine mg/dl (0.6-1.4) 02/17/21 18:07 POC Creatinine 1.2 mg/dl (0.6-1.3) 02/17/21 20:26 Est Cr Clr Drug Dosing Not Reportable 02/17/21 18:07 Est GFR ( Amer) Not Reportable 02/17/21 18:07 Est GFR (Non-Af Amer) Not Reportable 02/17/21 18:07 BUN/Creatinine Ratio Not Reportable 02/17/21 18:07 Glucose 108 mg/dl (70-99) H 02/17/21 18:07 POC Glucose (other) 110 mg/dl (70-99) H 02/17/21 20:26 Lactate 2.2 mmol/L (0.4-2.0) H* 02/17/21 22:38 Calcium 9.0 mg/dl (8.5-10.1) 02/17/21 18:07 POC Ioniz Calcium Ev 1.12 mmol/l (1.12-1.32) 02/17/21 20:26 Total Bilirubin 29.6 mg/dl (0.2-1) H 02/17/21 18:07 Direct Bilirubin 22.7 mg/dl (0-0.2) H 02/17/21 18:07 AST 369 U/L (15-37) H 02/17/21 18:07 ALT 197 U/L (12-78) H 02/17/21 18:07 Alkaline Phosphatase 217 U/L (45-117) H 02/17/21 18:07 Total Protein gm/dl (6.4-8.2) 02/17/21 18:07 Albumin 2.0 gm/dl (3.4-5.0) L 02/17/21 18:07 Globulin TNP 02/17/21 18:07 Albumin/Globulin Ratio TNP 02/17/21 18:07 Lipase 304 U/L (73-393) 02/17/21 18:07 Procalcitonin 0.70 ng/ml (0-0.5) H 02/17/21 18:07 Urine Color Dark Yellow 02/18/21 01:34 Urine Appearance Cloudy (Clear) A 02/18/21 01:34 Urine pH 7.0 (4.5-7.5) 02/18/21 01:34 Ur Specific [place] 1.045 (1.000-1.030) H 02/18/21 01:34 Urine Protein Trace (Negative) H 02/18/21 01:34 Urine Glucose (UA) Negative (Negative) 02/18/21 01:34 Urine Ketones Negative (Negative) 02/18/21 01:34 Urine Blood Negative (Negative) 02/18/21 01:34 Urine Nitrite Positive (Negative) A 02/18/21 01:34 Urine Bilirubin 3+ (Negative) H 02/18/21 01:34 Urine Urobilinogen Negative (Negative) 02/18/21 01:34 Ur Leukocyte Esterase 1+ (Negative) H 02/18/21 01:34 Urine WBC (Auto) 0 /hpf (0-5) 02/18/21 01:34 Urine RBC (Auto) 0-4 /hpf (0-4) 02/18/21 01:34 U Hyaline Cast (Auto) 1-5 /lpf (0-5) 02/18/21 01:34 U Epithel Cells (Auto) 0-5 /lpf (0-5) 02/18/21 01:34 Urine Bacteria (Auto) Negative (Negative) 02/18/21 01:34 Urine Crystals Not Reportable 02/18/21 01:34 Ethyl Alcohol mg/dL < 3.0 mg/dl (0-3) 02/17/21 20:16 COVID-19 Eval Order Covid19 at [facility] 02/17/21 20:19 SARS-CoV-2 (PCR) NEGATIVE (Negative) 02/17/21 20:19 Impressions Abdomen/Pelvis CT 02/17/21 19:16 CT abd pelvis IV con only CLINICAL INDICATION: MN ^B6 LABS ^jaundice. TECHNIQUE: Helical axial images of the abdomen and pelvis were obtained and displayed at 5 and 1 mm intervals. Automated dose lowering techniques and/or adjustment according to patient size were utilized for this exam. This exam was performed with intravenous contrast. COMPARISON: Comparison is made to CT abdomen and pelvis 09/17/2020 FINDINGS: Lower chest: Bibasilar atelectasis is seen. Liver: Nodular contour of the liver is seen compatible with cirrhosis. Gallbladder and biliary tree: Prominent in size with a stone noted in the gallbladder neck. No intra- or extrahepatic biliary ductal dilation. Pancreas: Unremarkable, no focal lesions. Spleen: Unremarkable. Adrenals: Unremarkable. Kidneys and ureters: Unremarkable. Bladder: Mild bladder wall thickening is seen. Reproductive organs: Unremarkable. Bowel: Unremarkable. Lymph nodes Retroperitoneal: Unremarkable. Mesenteric: Unremarkable. Pelvic: Unremarkable. Peritoneum: Moderate ascites is noted. Vessels: Trace atherosclerotic changes. Abdominal wall: Bilateral fat-containing inguinal hernias noted. Small umbilical hernia containing only fat is seen. Bones: Degenerative changes in the visualized spine. IMPRESSION: 1. Nodular contour of the liver compatible with cirrhosis. Moderate ascites, significantly increased from prior exam. 2. Distention of the gallbladder compared to the prior exam, with a stone noted in the gallbladder neck. Acute cholecystitis cannot be excluded. If clinical concern remains, right upper quadrant ultrasound can be performed. ACT 112: Negative or not required by law. Electronically signed by: Maulik Zavala M.D. 02/17/2021 8:56 PM [facility] Patient: ANASTASIYA LI (Male) : 66 Status: ER Date: 02/18/21 02:11 Room #: B6 History: 6 weeks generalized abd pain - cramping hx cirrhosis and pancreatitis. jaundice Slices: [id number] Priors: ultrasound fabrication engineer: YeDarren @ [phone] Exams: MRCP Contrast: Accession Numbers: [id number] Referring Physician: REFERRED SELF Preliminary Findings Only See Final Report For Complete Findings MRCP : Moderate ascites. Over distended gallbladder with no distinct stones. No biliary distention. Suboptimally seen extrahepatic biliary tree. Mild splenomegaly, spleen measuring 14.7 cm. Unremarkable bilateral kidneys and adrenal glands. Unremarkable pancreas. Thickening of the wall throughout the colon which may indicate cirrhotic colopathy versus colitis. Unremarkable aorta and retroperitoneum. Radiologist: Mireille Moreno MD Study ready at 02:17 and initial results transmitted at 02:40 *This report constitutes a preliminary interpretation only. Non-acute findings felt to be unrelated to the clinical presentation may not be discussed in this report. The study will be interpreted and a final report will be generated by the local Radiologist the following shift. To reach the hospital radiology department call [phone]. If a discrepancy is found between the preliminary and final interpretations of this study, please notify us via our Client Portal at [email or web address] under QA [email or web address].You can also fax this report with a description of the discrepancy, or include the final report, to our daytime fax number [phone].If faxing, please indicate the severity of discrepancy using one of the following categories: [ ] 1 - Agree/Informational [ ] 2 - Unlikely to Affect Management [ ] 3 - Possible Eventual Change of Management [ ] 4 - Probable Immediate Change of Management For all other patient related information, please fax us at [phone]. [id number] Code Status & VTE Plan Code Status Full code VTE Prophylaxis Plan VTE Prophylaxis will be ordered: Yes PG Care Time/CCT Total # of Minutes Spent Total Time Spent with Patient: Total time spent is greater than 50% in coordination of care (as documented) at patient's floor/unit and/or counseling patient: Coding Level of Care Code 91748 Initial Inpt Care Lvl 3 Diagnoses Cholelithiasis K80.20 GERD without esophagitis K21.9 IPMN (intraductal papillary mucinous neoplasm) D49.0 Liver cirrhosis K74.60 Ascites R18.8 Anasarca R60.1 Hypertension I10 History of alcohol abuse F10.11 Jaundice R17
--- NOTE | 2021-02-18 07:22 | Ultrasound Report ---
ULTRASOUND RIGHT UPPER QUADRANT ABDOMEN CLINICAL HISTORY: Elevated bilirubin. COMPARISON STUDY: Abdominal CT dated 02/17/2021. TECHNIQUE: Real-time, grayscale, and color flow sonography of the right upper quadrant of the abdomen was performed. Images are reviewed in the transverse and longitudinal planes. FINDINGS: Liver: The liver is cirrhotic in morphology and heterogeneous in echotexture. There is nodularity of the hepatic surface contour. There is no intrahepatic biliary ductal dilatation. The portal vein is n ot well visualized but was shown to be patent on today's CT scan. Gallbladder: The gallbladder is distended, and there is nonspecific gallbladder wall thickening which measures up to 7 mm. There is biliary sludge. No shadowing gallstones are identified. A sonographic Fuentes's sign is reportedly absent. The common bile duct measures up to 0.4 cm in diameter. Pancreas: Not visualized due to overlying bowel gas. Right kidney: Survey images of the right kidney demonstrate mild cortical atrophy. Echotexture is nor mal. There is no hydronephrosis. Ascites: There is a small to moderate volume of abdominal ascites. IMPRESSION: 1. The liver is cirrhotic in morphology and heterogeneous in echotexture. 2. The gallbladder is mildly distended and contains biliary sludge. Gallbladder wall thickening is no nspecific and may be related to cirrhosis and ascites. There is no definitive sonographic evidence of acute cholecystitis. If there strong clinical concern for acute cholecystitis a nuclear hepatobiliar y scan should be considered. 3. The main portal vein was shown to be widely patent by CT. This was not well assessed by ultrasound . 4. Abdominal ascites. 5. Nonvisualization of the pancreas. ACT 112: Negative or not required by law. Electronically signed by: Gopi Chen M.D. 02/18/2021 7:20 AM
--- NOTE | 2021-02-18 07:54 | Magnetic Resonance Report ---
MR MRCP HISTORY: Jaundice. abnormal LFT's, GB U/S and CT A/P TECHNIQUE: MRCP of the abdomen was performed without contrast according to standard departmental prot ocol. COMPARISON STUDY: Abdomen and pelvis CT 02/17/2021. MRCP 09/18/2020. FINDINGS: Small amount of ascites. Distended gallbladder, unchanged. The spleen remains mildly enlarg ed. Nodular contour to the liver consistent with cirrhosis. No significant gallbladder wall thickenin g. The common bile duct is normal in caliber. Evaluation for a filling defect within the common bile duct is essentially nondiagnostic due to the motion artifact. The main pancreatic duct is also normal in caliber but not well visualized due to the motion artifact. There is a punctate stone near the ne ck of the gallbladder. IMPRESSION: 1. Cirrhotic liver with splenomegaly and a small amount of ascites. This is similar to the prior CT e xamination. 2. Mildly distended gallbladder. However, no gallbladder wall thickening. This again noted a punctate stone near the gallbladder neck. However, no definite stones within the common bile duct which appea rs normal in caliber. ACT 112: Negative or not required by law. Electronically signed by: Jamshid Ivy M.D. 02/18/2021 7:53 AM
[2021-02-18] MEDS: METOPROLOL TARTRATE 50 MG TAB PO SCH ×2 (09:08→20:14)
[2021-02-18] MEDS: FAMOTIDINE 20 MG in SYRINGE 3 ML IV SCH ×2 (09:08→20:16)
[2021-02-18] MEDS: PANTOprazole 40 MG TAB PO SCH (09:09)
--- NOTE | 2021-02-18 09:32 | Gastrointestinal Consultation ---
Date of Consultation February 18, 2021 Assessment & Plan (1) Liver cirrhosis: 50 year old male admitted w/ 4/6 weeks of jaundice, intermittent RUQ pain w/ nausea/vomiting. Imaging shows gallstones, Tbili 30 w/ transaminitis. Imaging consistent w/ cirrhosis. Imaging w/o evidence of CBD stones. Complex case. Given underlying liver disease, agree with transfer to a tertiary care center for evaluation. Of note, no biliary coverage at [facility] until Sunday. Continue supportive measure Trend MELD labs Antiemetics PRN Analgesia PRN IV fluids Please arrange hepatic duplex Will send viral studies and utoxicology, CDT to rule out chronic ETOH abuse If unable to transferred and remains admitted at [facility] recommend EGD/EUS w/ LB next week Thank you for allowing us to participate in the care of this patient. Please call with any acute changes, questions or concerns. Please see addendum below with additional recommendation from my supervising physician. (2) Cholelithiasis: Supervising Physician Co-Signing Physician Notes Attg add: I interviewed and examined pt, reviewed chart and labs. He was admit in September for alc hep, peak bili 8, rx'd prednisone; he was subsequently hospitalized for alcoholic hepatitis. EUS in October showed sludge in GB. Pt reports 6 week upper abdominal pain, nausea, poor PO intake. His labs show TB 30, AST 370/ALT 200/AP200, lip 300, INR 2. Hgb 15, plts 163. Creat 1.2. Lactate 2.2. Doppler shows mod ascites, CT = cirrhotic liver, MRCP = nl caliber CBD but sig motion artifact, stone in Gb. Uls shows reversal of low in PVT A/p: H/o alc hep Jaundice with nl CBD size Stones on EUS He likely has alcoholic hepatitis - doppler findings (flow reversal in PV), presence of ascites, AST/ALT ratio, nl CBD on imaging all suggestive for this. Will plan EUS on Sunday r/o stone disease, and if negative, then plan for steroids. He should have ascites tapped for SBP. Will check labs r/o viral hep. Over the weekend, please follow labs - please check lipase to see if he passed stone, follow bili and INR + consider trial of vit K. History of Present Illness Reason for Consultation: cirrhosis, jaundice Attending Physician: Enrique Tran DO History of Present Illness 50 year old male with history of GERD without esophagitis, IPMN, coagulopathy, pancreatitis, gout, hypertension, alcoholic hepatitis, history of alcohol abuse, elevated bilirubin, jaundice admitted through the ED withabd distention, ja undice. Pt was seen and evaluated, chart reviewed. Notes about 4/6 weeks ago started to have abd pain, distention and worsening jaundice. He found some left over steroids at home and starting these for about 2 weeks. Initially improved, but after the steroids ran out he noted persistent symptoms. No reports intermittent, RUQ pain w/ associated nausea and vomiting. Denies black or bloody stools. No change in bowel habits, specifically no black/bloody stools. MRCP: Cirrhotic liver with splenomegaly and a small amount of ascites. This is similar to the prior CT examination. 2. Mildly distended gallbladder. However, no gallbladder wall thickening. This again noted a punctate stone near the gallbladder neck. However, no definite stones within the common bile duct which appears normal in caliber. ABD US: The liver is cirrhotic in morphology and heterogeneous in echotexture.The gallbladder is mildly distended and contains biliary sludge. Gallbladder wall thickening is nonspecific and may be related to cirrhosis and ascites. There is no definitive sonographic evidence of acute cholecystitis. If there strong clinical concern for acute cholecystitis a nuclear hepatobiliary scan should be considered.The main portal vein was shown to be widely patent by CT. This was not well assessed by ultrasound. Abdominal ascites. Nonvisualization of the pancreas. EUS: fatty liver, stones/sludge, Allergies Allergy/AdvReac Type Severity Reaction Status Date / Time No Known Drug Allergies Allergy Unknown Verified 02/17/21 21:43 Home Medications Medication Instructions Recorded Confirmed Type allopurinol 300 mg tablet 300 mg PO HS #90 tab 10/20/20 02/17/21 Rx metoprolol tartrate 50 mg tablet 50 mg PO BID #180 tab 10/20/20 02/17/21 Rx omeprazole 40 mg capsule,delayed 40 mg PO DAILY 02/17/21 02/17/21 History release trazodone 100 mg tablet 50 - 100 mg PO HS PRN 02/17/21 02/17/21 History Patient History Medical History Elevated bilirubin GERD without esophagitis Gout History of alcohol abuse IPMN (intraductal papillary mucinous neoplasm) (~09/18/20) 7 mm cystic lesion within the pancreatic body likely representing a [facility] IPMN Jaundice Surgical History H/O knee surgery left x 2 No pertinent past surgical history Family History Family/Other Myocardial infarction patient notes several [place] on father and mothers side Mother Kidney disease Grandmother (Paternal) Diabetes Grandfather (Maternal) Black lung Grandfather No problems noted. Grandfather (Paternal) Black lung Uncle Black lung Denies family history of Ovarian cancer Prostate cancer Breast cancer Colorectal cancer Social History Smoking Status: Never smoker Second Hand Exposure: No; Do You Dip or Chew Tobacco: No; Tobacco Cessation Education Requested by Patient: No Hx Alcohol Use: Yes Alcohol type: wine Hx Substance Use: No Preferred Language: Northern Irish Communication Ability: Effective Visual Impairment: No Limitations Hearing Ability: Normal Operations Specialist Required: No Beliefs That Will Affect Care: None marital status: Current Living Situation: Family current occupational status: employed Other Information That Helps Us Care for You: No Feels Safe at Home: Yes Safety Concerns: Feels Safe At This Time Diet Comment: well balanced diet caffeine: No during the past year weight has: remained stable Dental Care, Regularly: No Physical Activity Frequency: Other Seatbelt Use: always Sunscreen Use: Yes Assistive Devices: None Review of Systems Review of Systems: All systems reviewed & are unremarkable except as noted in HPI & below Physical Exam Constitutional: WD/WN, vitals as above Eyes: + scleral icterus Respiratory: normal respiratory effort, lungs clear to auscultation Cardiovascular: RRR, no murmur, no edema Gastrointestinal (Abdomen): Inspection/Auscultation: abdomen normal to inspection, + abdomen distended and normal bowel sounds Percussion/Palpation: + abdomen tender and abdomen soft; no guarding, abdomen not rigid and no abdominal mass Skin: no rashes, warm and dry + jaundice Results & Data ([facility]) Vital Signs (Past 12 Hours) Vital Signs Temp Pulse Pulse Resp BP BP Pulse Ox 02/18/21 06:56 36.6 C 91 H 16 122/76 94 02/18/21 05:50 69 02/18/21 04:30 75 16 144/81 H 93 02/18/21 04:00 36.6 C 71 68 16 120/73 126/75 96 02/18/21 03:30 69 14 124/86 93 02/18/21 03:00 71 16 136/87 94 02/18/21 02:30 67 20 142/82 H 95 02/18/21 02:28 63 26 H 02/18/21 01:00 68 19 118/81 02/18/21 00:30 63 18 118/68 94 02/18/21 00:01 68 17 141/68 H 94 02/17/21 23:30 69 14 131/82 95 02/17/21 22:30 67 17 124/67 92 02/17/21 22:01 69 21 132/93 96 02/17/21 21:30 70 21 138/94 97 Laboratory Results 02/18/21 02/17/21 02/17/21 Range/Units 01:34 22:38 20:26 WBC (4.8-10.8) K/uL RBC (4.7-6.1) M/uL Hgb (14.0-18.0) g/dL POC Hgb 15.3 (14.0-18.0) g/dl Hct (42-52) % POC Hct 45 (42-52) % MCV (80-100) fL MCH (25-34) pg MCHC (32-36) g/dL RDW Std Deviation (36.4-46.3) fL RDW Coeff of Liliya (11.5-14.5) % Plt Count (130-400) K/uL MPV (7.4-10.4) fL Immature Gran % (Auto) % Neut % (Auto) % Lymph % (Auto) % [place] % (Auto) % Eos % (Auto) % Baso % (Auto) % Neut # (Auto) (1.4-6.5) K/uL Lymph # (Auto) (1.2-3.4) K/uL [place] # (Auto) (0.11-0.59) K/uL Eos # (Auto) (0-0.5) K/uL Baso # (Auto) (0-0.2) K/uL Immature Gran # (Auto) (0.00-0.02) K/uL Echinocytes PT (9.0-12.0) Seconds INR (0.9-1.1) POC Sodium 137 (135-144) mmol/L Sodium (136-145) mmol/L POC Potassium 3.4 (3.3-5.0) mmol/L Potassium (3.5-5.1) mmol/L POC Chloride 100 L (101-112) mmol/L Chloride (98-107) mmol/L Carbon Dioxide (21-32) mmol/L POC Total CO2 23 L (24-31) mmol/L Anion Gap (3-11) POC Anion Gap 19.0 (16-25) mmol/L POC BUN 13 (7-18) mg/dl BUN (7-18) mg/dl Creatinine (0.6-1.4) mg/dl POC Creatinine 1.2 (0.6-1.3) mg/dl Est Cr Clr Drug Dosing Est GFR ( Amer) Est GFR (Non-Af Amer) BUN/Creatinine Ratio Glucose (70-99) mg/dl POC Glucose (other) 110 H (70-99) mg/dl Lactate 2.2 H* (0.4-2.0) mmol/L Calcium (8.5-10.1) mg/dl POC Ioniz Calcium Ev 1.12 (1.12-1.32) mmol/l Total Bilirubin (0.2-1) mg/dl Direct Bilirubin (0-0.2) mg/dl AST (15-37) U/L ALT (12-78) U/L Alkaline Phosphatase (45-117) U/L Total Protein (6.4-8.2) gm/dl Albumin (3.4-5.0) gm/dl Globulin Albumin/Globulin Ratio Lipase (73-393) U/L Procalcitonin (0-0.5) ng/ml Urine Color Dark Yellow Urine Appearance Cloudy A (Clear) Urine pH 7.0 (4.5-7.5) Ur Specific [place] 1.045 H (1.000-1.030) Urine Protein Trace H (Negative) Urine Glucose (UA) Negative (Negative) Urine Ketones Negative (Negative) Urine Blood Negative (Negative) Urine Nitrite Positive A (Negative) Urine Bilirubin 3+ H (Negative) Urine Urobilinogen Negative (Negative) Ur Leukocyte Esterase 1+ H (Negative) Urine WBC (Auto) 0 (0-5) /hpf Urine RBC (Auto) 0-4 (0-4) /hpf U Hyaline Cast (Auto) 1-5 (0-5) /lpf U Epithel Cells (Auto) 0-5 (0-5) /lpf Urine Bacteria (Auto) Negative (Negative) Urine Crystals Not Reportable Ethyl Alcohol mg/dL (0-3) mg/dl COVID-19 Eval Order SARS-CoV-2 (PCR) (Negative) Miscellaneous Test Miscellaneous Test 2 02/17/21 02/17/21 02/17/21 Range/Units 20:19 20:19 20:16 WBC (4.8-10.8) K/uL RBC (4.7-6.1) M/uL Hgb (14.0-18.0) g/dL POC Hgb (14.0-18.0) g/dl Hct (42-52) % POC Hct (42-52) % MCV (80-100) fL MCH (25-34) pg MCHC (32-36) g/dL RDW Std Deviation (36.4-46.3) fL RDW Coeff of Liliya (11.5-14.5) % Plt Count (130-400) K/uL MPV (7.4-10.4) fL Immature Gran % (Auto) % Neut % (Auto) % Lymph % (Auto) % [place] % (Auto) % Eos % (Auto) % Baso % (Auto) % Neut # (Auto) (1.4-6.5) K/uL Lymph # (Auto) (1.2-3.4) K/uL [place] # (Auto) (0.11-0.59) K/uL Eos # (Auto) (0-0.5) K/uL Baso # (Auto) (0-0.2) K/uL Immature Gran # (Auto) (0.00-0.02) K/uL Echinocytes PT (9.0-12.0) Seconds INR (0.9-1.1) POC Sodium (135-144) mmol/L Sodium (136-145) mmol/L POC Potassium (3.3-5.0) mmol/L Potassium (3.5-5.1) mmol/L POC Chloride (101-112) mmol/L Chloride (98-107) mmol/L Carbon Dioxide (21-32) mmol/L POC Total CO2 (24-31) mmol/L Anion Gap (3-11) POC Anion Gap (16-25) mmol/L POC BUN (7-18) mg/dl BUN (7-18) mg/dl Creatinine (0.6-1.4) mg/dl POC Creatinine (0.6-1.3) mg/dl Est Cr Clr Drug Dosing Est GFR ( Amer) Est GFR (Non-Af Amer) BUN/Creatinine Ratio Glucose (70-99) mg/dl POC Glucose (other) (70-99) mg/dl Lactate (0.4-2.0) mmol/L Calcium (8.5-10.1) mg/dl POC Ioniz Calcium Ev (1.12-1.32) mmol/l Total Bilirubin (0.2-1) mg/dl Direct Bilirubin (0-0.2) mg/dl AST (15-37) U/L ALT (12-78) U/L Alkaline Phosphatase (45-117) U/L Total Protein (6.4-8.2) gm/dl Albumin (3.4-5.0) gm/dl Globulin Albumin/Globulin Ratio Lipase (73-393) U/L Procalcitonin (0-0.5) ng/ml Urine Color Urine Appearance (Clear) Urine pH (4.5-7.5) Ur Specific [place] (1.000-1.030) Urine Protein (Negative) Urine Glucose (UA) (Negative) Urine Ketones (Negative) Urine Blood (Negative) Urine Nitrite (Negative) Urine Bilirubin (Negative) Urine Urobilinogen (Negative) Ur Leukocyte Esterase (Negative) Urine WBC (Auto) (0-5) /hpf Urine RBC (Auto) (0-4) /hpf U Hyaline Cast (Auto) (0-5) /lpf U Epithel Cells (Auto) (0-5) /lpf Urine Bacteria (Auto) (Negative) Urine Crystals Ethyl Alcohol mg/dL < 3.0 (0-3) mg/dl COVID-19 Eval Order Covid19 at [facility] SARS-CoV-2 (PCR) NEGATIVE (Negative) Miscellaneous Test Miscellaneous Test 2 0902/17/21 02/17/21 Range/Units 20:16 20:16 18:07 WBC (4.8-10.8) K/uL RBC (4.7-6.1) M/uL Hgb (14.0-18.0) g/dL POC Hgb (14.0-18.0) g/dl Hct (42-52) % POC Hct (42-52) % MCV (80-100) fL MCH (25-34) pg MCHC (32-36) g/dL RDW Std Deviation (36.4-46.3) fL RDW Coeff of Liliya (11.5-14.5) % Plt Count (130-400) K/uL MPV (7.4-10.4) fL Immature Gran % (Auto) % Neut % (Auto) % Lymph % (Auto) % [place] % (Auto) % Eos % (Auto) % Baso % (Auto) % Neut # (Auto) (1.4-6.5) K/uL Lymph # (Auto) (1.2-3.4) K/uL [place] # (Auto) (0.11-0.59) K/uL Eos # (Auto) (0-0.5) K/uL Baso # (Auto) (0-0.2) K/uL Immature Gran # (Auto) (0.00-0.02) K/uL Echinocytes PT 18.8 H (9.0-12.0) Seconds INR 2.0 H (0.9-1.1) POC Sodium (135-144) mmol/L Sodium (136-145) mmol/L POC Potassium (3.3-5.0) mmol/L Potassium (3.5-5.1) mmol/L POC Chloride (101-112) mmol/L Chloride (98-107) mmol/L Carbon Dioxide (21-32) mmol/L POC Total CO2 (24-31) mmol/L Anion Gap (3-11) POC Anion Gap (16-25) mmol/L POC BUN (7-18) mg/dl BUN (7-18) mg/dl Creatinine (0.6-1.4) mg/dl POC Creatinine (0.6-1.3) mg/dl Est Cr Clr Drug Dosing Est GFR ( Amer) Est GFR (Non-Af Amer) BUN/Creatinine Ratio Glucose (70-99) mg/dl POC Glucose (other) (70-99) mg/dl Lactate 2.3 H* (0.4-2.0) mmol/L Calcium (8.5-10.1) mg/dl POC Ioniz Calcium Ev (1.12-1.32) mmol/l Total Bilirubin (0.2-1) mg/dl Direct Bilirubin (0-0.2) mg/dl AST (15-37) U/L ALT (12-78) U/L Alkaline Phosphatase (45-117) U/L Total Protein (6.4-8.2) gm/dl Albumin (3.4-5.0) gm/dl Globulin Albumin/Globulin Ratio Lipase (73-393) U/L Procalcitonin 0.70 H (0-0.5) ng/ml Urine Color Urine Appearance (Clear) Urine pH (4.5-7.5) Ur Specific [place] (1.000-1.030) Urine Protein (Negative) Urine Glucose (UA) (Negative) Urine Ketones (Negative) Urine Blood (Negative) Urine Nitrite (Negative) Urine Bilirubin (Negative) Urine Urobilinogen (Negative) Ur Leukocyte Esterase (Negative) Urine WBC (Auto) (0-5) /hpf Urine RBC (Auto) (0-4) /hpf U Hyaline Cast (Auto) (0-5) /lpf U Epithel Cells (Auto) (0-5) /lpf Urine Bacteria (Auto) (Negative) Urine Crystals Ethyl Alcohol mg/dL (0-3) mg/dl COVID-19 Eval Order SARS-CoV-2 (PCR) (Negative) Miscellaneous Test Miscellaneous Test 2 02/17/21 02/17/21 02/17/21 Range/Units 18:07 18:07 18:07 WBC (4.8-10.8) K/uL RBC (4.7-6.1) M/uL Hgb (14.0-18.0) g/dL POC Hgb (14.0-18.0) g/dl Hct (42-52) % POC Hct (42-52) % MCV (80-100) fL MCH (25-34) pg MCHC (32-36) g/dL RDW Std Deviation (36.4-46.3) fL RDW Coeff of Liliya (11.5-14.5) % Plt Count (130-400) K/uL MPV (7.4-10.4) fL Immature Gran % (Auto) % Neut % (Auto) % Lymph % (Auto) % [place] % (Auto) % Eos % (Auto) % Baso % (Auto) % Neut # (Auto) (1.4-6.5) K/uL Lymph # (Auto) (1.2-3.4) K/uL [place] # (Auto) (0.11-0.59) K/uL Eos # (Auto) (0-0.5) K/uL Baso # (Auto) (0-0.2) K/uL Immature Gran # (Auto) (0.00-0.02) K/uL Echinocytes PT (9.0-12.0) Seconds INR (0.9-1.1) POC Sodium (135-144) mmol/L Sodium 135 L (136-145) mmol/L POC Potassium (3.3-5.0) mmol/L Potassium 3.7 (3.5-5.1) mmol/L POC Chloride (101-112) mmol/L Chloride 102 (98-107) mmol/L Carbon Dioxide 24 (21-32) mmol/L POC Total CO2 (24-31) mmol/L Anion Gap 9.0 (3-11) POC Anion Gap (16-25) mmol/L POC BUN (7-18) mg/dl BUN 13 (7-18) mg/dl Creatinine (0.6-1.4) mg/dl POC Creatinine (0.6-1.3) mg/dl Est Cr Clr Drug Dosing Not Reportable Est GFR ( Amer) Not Reportable Est GFR (Non-Af Amer) Not Reportable BUN/Creatinine Ratio Not Reportable Glucose 108 H (70-99) mg/dl POC Glucose (other) (70-99) mg/dl Lactate (0.4-2.0) mmol/L Calcium 9.0 (8.5-10.1) mg/dl POC Ioniz Calcium Ev (1.12-1.32) mmol/l Total Bilirubin 29.6 H (0.2-1) mg/dl Direct Bilirubin 22.7 H (0-0.2) mg/dl AST 369 H (15-37) U/L ALT 197 H (12-78) U/L Alkaline Phosphatase 217 H (45-117) U/L Total Protein (6.4-8.2) gm/dl Albumin 2.0 L (3.4-5.0) gm/dl Globulin TNP Albumin/Globulin Ratio TNP Lipase 304 (73-393) U/L Procalcitonin (0-0.5) ng/ml Urine Color Urine Appearance (Clear) Urine pH (4.5-7.5) Ur Specific [place] (1.000-1.030) Urine Protein (Negative) Urine Glucose (UA) (Negative) Urine Ketones (Negative) Urine Blood (Negative) Urine Nitrite (Negative) Urine Bilirubin (Negative) Urine Urobilinogen (Negative) Ur Leukocyte Esterase (Negative) Urine WBC (Auto) (0-5) /hpf Urine RBC (Auto) (0-4) /hpf U Hyaline Cast (Auto) (0-5) /lpf U Epithel Cells (Auto) (0-5) /lpf Urine Bacteria (Auto) (Negative) Urine Crystals Ethyl Alcohol mg/dL (0-3) mg/dl COVID-19 Eval Order SARS-CoV-2 (PCR) (Negative) Miscellaneous Test Pending Miscellaneous Test 2 Pending 02/17/21 Range/Units 18:07 WBC 9.98 (4.8-10.8) K/uL RBC 4.55 L (4.7-6.1) M/uL Hgb 15.1 (14.0-18.0) g/dL POC Hgb (14.0-18.0) g/dl Hct 40.9 L (42-52) % POC Hct (42-52) % MCV 89.9 (80-100) fL MCH 33.2 (25-34) pg MCHC 36.9 H (32-36) g/dL RDW Std Deviation 67.9 H (36.4-46.3) fL RDW Coeff of Liliya 20.9 H (11.5-14.5) % Plt Count 163 (130-400) K/uL MPV 11.5 H (7.4-10.4) fL Immature Gran % (Auto) 0.5 % Neut % (Auto) 68.4 % Lymph % (Auto) 9.7 % [place] % (Auto) 17.4 % Eos % (Auto) 3.3 % Baso % (Auto) 0.7 % Neut # (Auto) 6.82 H (1.4-6.5) K/uL Lymph # (Auto) 0.97 L (1.2-3.4) K/uL [place] # (Auto) 1.74 H (0.11-0.59) K/uL Eos # (Auto) 0.33 (0-0.5) K/uL Baso # (Auto) 0.07 (0-0.2) K/uL Immature Gran # (Auto) 0.05 H (0.00-0.02) K/uL Echinocytes 1+ PT (9.0-12.0) Seconds INR (0.9-1.1) POC Sodium (135-144) mmol/L Sodium (136-145) mmol/L POC Potassium (3.3-5.0) mmol/L Potassium (3.5-5.1) mmol/L POC Chloride (101-112) mmol/L Chloride (98-107) mmol/L Carbon Dioxide (21-32) mmol/L POC Total CO2 (24-31) mmol/L Anion Gap (3-11) POC Anion Gap (16-25) mmol/L POC BUN (7-18) mg/dl BUN (7-18) mg/dl Creatinine (0.6-1.4) mg/dl POC Creatinine (0.6-1.3) mg/dl Est Cr Clr Drug Dosing Est GFR ( Amer) Est GFR (Non-Af Amer) BUN/Creatinine Ratio Glucose (70-99) mg/dl POC Glucose (other) (70-99) mg/dl Lactate (0.4-2.0) mmol/L Calcium (8.5-10.1) mg/dl POC Ioniz Calcium Ev (1.12-1.32) mmol/l Total Bilirubin (0.2-1) mg/dl Direct Bilirubin (0-0.2) mg/dl AST (15-37) U/L ALT (12-78) U/L Alkaline Phosphatase (45-117) U/L Total Protein (6.4-8.2) gm/dl Albumin (3.4-5.0) gm/dl Globulin Albumin/Globulin Ratio Lipase (73-393) U/L Procalcitonin (0-0.5) ng/ml Urine Color Urine Appearance (Clear) Urine pH (4.5-7.5) Ur Specific [place] (1.000-1.030) Urine Protein (Negative) Urine Glucose (UA) (Negative) Urine Ketones (Negative) Urine Blood (Negative) Urine Nitrite (Negative) Urine Bilirubin (Negative) Urine Urobilinogen (Negative) Ur Leukocyte Esterase (Negative) Urine WBC (Auto) (0-5) /hpf Urine RBC (Auto) (0-4) /hpf U Hyaline Cast (Auto) (0-5) /lpf U Epithel Cells (Auto) (0-5) /lpf Urine Bacteria (Auto) (Negative) Urine Crystals Ethyl Alcohol mg/dL (0-3) mg/dl COVID-19 Eval Order SARS-CoV-2 (PCR) (Negative) Miscellaneous Test Miscellaneous Test 2
[2021-02-18 11:11] LABS: Hepatitis B Surf Ag Rflx Conf Neg (Neg)
--- NOTE | 2021-02-18 11:34 | Medical Student Progress Note ---
Date of Service February 18, 2021 Assessment & Plan (1) Liver cirrhosis: Plan: 50-year-old male with a past medical history including GERD without esophagitis, IPMN, coagulopathy, pancreatitis, gout, hypertension, alcoholic hepatitis, history of alcohol abuse, elevated bilirubin, jaundice, and obesity admitted for liver cirrhosis. (1) Liver cirrhosis: Plan: Liver cirrhosis/ascites/anasarca/jaundice/cholelithiasis- -MRCP showing moderate ascites and over distended gallbladder with no distinct stones. Mild splenomegaly noted -CT of abdomen pelvis noted cirrhosis and a stone in the gallbladder neck -labs show Bili 30, AST 370/ALT 200/AP200, INR 2 -continue supportive measures: antiemetics PRN, analgesia PRN -continue IV fluids -continue labs - INR, bili, and add lipase to see if the stone was passed - Plan EUS on Sunday to r/o stone disease with GI, and if negative, will plan for steroids -GI consulted. Appreciate their assistance and recommendations. Can trial vitamin K per GI recommendation (2) Ascites: Plan: See above (3) Anasarca: Plan: See above (4) Cholelithiasis: Plan: See above (5) Jaundice: Plan: See above (6) GERD without esophagitis: Plan: Continue omeprazole/pantoprazole daily (7) IPMN (intraductal papillary mucinous neoplasm): Plan: Noted on previous imaging (8) Hypertension: Plan: Continue metoprolol tartrate 50 mg p.o. twice daily with hold parameters (9) History of alcohol abuse: VTE: SCDs Diet: heart healthy Code: Full Dispo: med/tele . Admission and Anticipated Discharge Date Admission Date: February 18, 2021 Supervising Attestation I personally examined the patient and verified all baptiste points of history and exam, discussed case, and agree with decision making with [place] Feeling reasonable now, still very yellow. Extensive discussion on current findings and plans. Discussed at the bedside myself, GI joint at the same time, we will discuss together, all on the same page. Vitals noted, in general he is awake and alert pleasant no distress although somewhat fatigued appearing. Visibly markedly jaundiced. Breathing unlabored no accessory muscle use good effort. Skin shows no rashes no pallor or icterus. Markedly elevated bilirubin, INR, transaminitisfollow, supportive care, alcoholic versus other toxic ingestion, (looking into his [employer] supplements) versus a mixed picture. For EUS Sunday. Supportive care between here and there. Follow labs. Otherwise as above. Subjective 50-year-old male with a past medical history including GERD without esophagitis, IPMN, coagulopathy, pancreatitis, gout, hypertension, alcoholic hepatitis, history of alcohol abuse, elevated bilirubin, jaundice, and obesity admitted for liver cirrhosis. 6 week history of abdominal distention, abdominal pain, worsening jaundice, anorexia, and fatigue/weakness. He recalls that about 1 month prior to the symptoms onset he started new OTC supplements from [facility]. He's unable to recall the supplements but is sending this names. Pt states last drink was 8 months ago in June. Has drank his whole life. Really began drinking heavy 1/5 vodka a day in Fall and Winter due to personal issues. Today the patient is doing well. Notes RLQ abdominal pain. Fatigue, weakness, and jaundice remains. He denies any fevers, vomiting, diarrhea or urinary symptoms. Review of Systems Review of Systems: All systems reviewed & are unremarkable except as noted in Subjective Physical Exam Constitutional: WD/WN, vitals as above Eyes: EOM intact, scleral icterus present ENMT: Moist mucus membranes Neck: trachea midline, no thyromegaly Respiratory: Normal respiratory effort, breathing is unlabored Gastrointestinal (Abdomen): Inspection/Auscultation: abdomen normal to inspection (+ jaundice) Percussion/Palpation: + fluid wave RLQ tenderness on palpation. Skin: no rashes, warm and dry + jaundice Psychiatric: A+Ox3, euthymic affect Results & Data ([facility]) Vital Signs (Past 12 Hours) Vital Signs Temp Pulse Pulse Resp BP BP Pulse Ox 02/18/21 11:21 36.7 C 64 19 132/75 94 02/18/21 08:00 72 02/18/21 06:56 36.6 C 91 H 16 122/76 94 02/18/21 05:50 69 02/18/21 04:30 75 16 144/81 H 93 02/18/21 04:00 36.6 C 71 68 16 120/73 126/75 96 02/18/21 03:30 69 14 124/86 93 02/18/21 03:00 71 16 136/87 94 02/18/21 02:30 67 20 142/82 H 95 02/18/21 02:28 63 26 H 02/18/21 01:00 68 19 118/81 02/18/21 00:30 63 18 118/68 94 02/18/21 00:01 68 17 141/68 H 94 02/17/21 23:30 69 14 131/82 95
[2021-02-18 11:39] LABS: Hepatitis C IgG 13Yrs+Old_Rflx Neg (Neg)
--- NOTE | 2021-02-18 14:30 | Ultrasound Report ---
US duplex portal hepatic veins CLINICAL HISTORY: Mid abdominal pain, elevated Tbili , rule out portal vein thrombosis COMPARISON STUDY: MRCP 02/18/2021. FINDINGS: Nodular contour to the liver with moderate ascites is again noted. The portal and splenic v eins demonstrate reversal of flow. The hepatic veins appear patent. No definite portal vein thrombosi s. IMPRESSION: 1. No definite portal vein thrombosis. 2. Reversal of flow within the portal and splenic veins consistent portal hypertension in the setting of the patient's cirrhosis. 3. Moderate ascites, unchanged. ACT 112: Negative or not required by law. Electronically signed by: Jamshid Ivy M.D. 02/18/2021 2:29 PM
--- NOTE | 2021-02-18 17:19 | Ultrasound Report ---
PROCEDURE: Ultrasound-Guided Diagnostic/Therapeutic Paracentesis CLINICAL INDICATION: MN ^ascites, r/o sbp ^6L. MEDICATIONS: Subcutaneous Lidocaine 2%. PROCEDURE: The procedure itself was explained to the patient carefully. The patient was brought into the IR suite and a time-out was performed. The patient was positioned supine on the table. Preliminar y ultrasound of the abdomen was performed to determine a safe needle entry site. The most appropriat e approach for safe needle entry site was planned and the site for puncture was marked. The right low er quadrant was prepped and draped in the usual sterile fashion. Subcutaneous 2% lidocaine was used f or local anesthesia along the expected needle tract. Under ultrasound-guidance, an 5 [employer] needle-sheath was inserted carefully into the peritoneal space towards the abdominal ascites fluid collection. The needle was removed and the sheath was conn ected to tubing and a vacuum suction device. A total of 2500 cc of serous ascites was aspirated. The sheath was removed and a sterile dressing applied. The patient tolerated the procedure well without i mmediate complications. Sample of ascites was sent for analysis. IMPRESSION: Ultrasound-guided diagnositc/therapeutic paracentesis. Electronically signed by: Maulik Zavala M.D. 02/18/2021 5:18 PM
[2021-02-18 18:06] LABS: Albumin Peritoneal Fluid < 0.6 g/dl; Total Protein Peritoneal Fluid 0.6 g/dl
[2021-02-18 20:04] LABS: Appearance Peritoneal Fluid CLEAR; Basophils, Fluid 0 %; Color Peritoneal Fluid YELLOW; Eosinophils, Fluid 0 %; Lymphocytes, Fluid 12 %; Mono,Macrophage,Mesothelial 83 %; Neutrophils, Fluid 5 %; RBC Peritoneal Fluid (A) < 3000 /uL; WBC Peritoneal Fluid (A) 92 /ul (0-300)
[2021-02-18] MEDS ORDERED: allopurinoL 300 MG TAB PO SCH (21:00)
--- NOTE | 2021-02-19 05:04 | Hospitalist Progress Note ---
Date of Service February 19, 2021 Assessment & Plan (1) Liver cirrhosis: Plan: Luther is a 50-year-old man with a history of GERD, IPMN, gout on allopurinol, HTN, significant alcohol use (previously >16 floz of vodka/day), and recent admission for pancreatitis in 09/2020 who presented to [facility] for 4-6 weeks of jaundice, intermittent RUQ pain, nausea/vomiting, subsequently found to have evidence of acute liver injury with a hepatocellular pattern. The primary etiolo gy of his injury is suspected to be secondary to alcohol use; also possible there is a superimposed DILI from supplements and/or recent ABX (notably, amoxicillin in October) atop of this. Hepatic Cirrhosis with Acute Liver Failure -- primarily founded by alcoholic, possibly with acute injury from DILI * Patient with known history of heavy alcohol use (over COVID-19 pandemic approx. 750cc vodka / day) and +stones (within CBD neck) on imaging. However, also noted with recent intake of ?[employer] supplements within last several months, too and possibly recent treatment of H. pylori gastritis with clarithromycin and amoxicillin. * Work-up as follows: - Physical exam c/w findings of severe jaundice, also +anasarca, ascites - Admission LFTs: TBili 29.6 / DBili 22.7 / AST 369 / ALT 197 / ALP 217 - Admission function: Na 135 / Alb 2.0 / INR 2.0 / Cr 0.76 - Moderate Ascites. Tapped 02/18 - SAAG ~1.4 g/dL likely secondary to pHTN. WBCs 92. - Serologies: HBsAg (-), HBcAb (pending), HCV Ab (-), HAV Ab (pending), EBC/CMV (pending) - Portal Vein US: (-) for PVT, findings c/w pHTN - MRCP: Cirrhotic liver. Mildly distended GB w/o thickening, w/ stone in neck . No CBD dilation. - Mentation: Normal. A+O x 4 on repeat exams. No encephalopathy. - Daily meds: Allopurinol, Toprol, Trazodone, Omeprazole - Patient maybe recently treated for +H. pylori gastritis with clarithromycin and amoxicillin - Scores: MELD 20%. Child-Powell Class C based on admission labs * Etiology at this point likely with foundation of chronic alcohol abuse with recent increase in usage over COVID-19 pandemic with acute contribution from DILI borne of recent ABX (amox/clarithro for H. pylori) +/- ?recent [employer] supplements also considered. Lower suspicion for stone contribution, but does have evidence of cholelithiasis * GI consulted, appreciate insight and recommendations: - EUS on Sunday if still here if unremarkable, can initiate steroids - Consider Vitamin K p.r.n. * Liver labs improving: TBili 24.6 / AST 261 / ALT 146 / ALP 157 -- will trend --> However, Alb dropped to 1.5 following paracentesis yesterday. --> 25g of 25% Albumin now * Lower suspicion for SBP at present. pHTN pattern in ascites with 92 WBCs. Discontinuation of Zosyn. * Initiate spironolactone 50mg b.i.d. for ascites prevention and potassium -- can pull back to 25 b.i.d. if BPs are fragile * Trend: INR, Bili, lipase * Avoid hepatotoxic medications. Na < 2g/day Coagulopathy * Admission labs significant for INR 2.0, Plt 137 * Stable. Monitor. If worsening, can consider vitamin K History of Alcohol Abuse * > 8 months since last drink per patient * Stable. Continue encouragement and support, especially in context of the above HTN: * Stable, normotensive. Continue home metoprolol. VTE: SCDs Diet: heart healthy, Na < 2 g Code: Full Dispo: med/tele (2) Anasarca: (3) Ascites: (4) Cholelithiasis: (5) GERD without esophagitis: (6) IPMN (intraductal papillary mucinous neoplasm): (7) Gout: (8) Hypertension: (9) Alcoholic hepatitis: (10) History of alcohol abuse: (11) Elevated bilirubin: (12) Jaundice: Admission and Anticipated Discharge Date Admission Date: February 18, 2021 Supervising Physician Co-Signing Physician Notes I personally examined the patient and verified all baptiste points of history and exam, discussed case, and agree with decision making with Dr Parker. Feeling okay. Pleased that his labs are showing some improvement. Asks good questions that we answered to the best of our ability. No other new complaints. Vitals noted, in general he is awake and alert pleasant no distress. HEENT normocephalic atraumatic mucous membranes are moist. Markedly jaundiced. No focal neuro deficits. Otherwise as above. Acute hepatitissuspect underlying alcoholic liver disease, possibly with some degree of acute/chronic inflammation, possibly compounded by drug-induced liver injury creating a mixed picture. Try to minimize anything that he is taking it would be hepatic metabolized to potentially hepatic toxic. Endoscopic work-up on Sunday, likely will be a prolonged follow-up to see how he does, but in the early going it is reassuring that his numbers have shown an improvement. Gave vitamin Kwe will follow for any synthetic function to improve INR. Continue to follow closely. Patient requested that I complete FMLA forms for his given that she will be taking time off work to help with himhe noted turnaround time being exceedingly important, and to that end he preferred to email the forms to my secure work email which I then completed and sent back to him. Otherwise as above. Subjective Patient seen at the bedside this morning. No acute events overnight. In fact, this morning, patient reports "that is the best sleep ever gotten in 6 months." He said that his abdominal pain and bloating is significantly decreased since Paracentesis yesterday. Says that he is able to sit up without any difficulty, which is unusual for him. Also feels extremely well rested. He denies any shortness of breath. Does not report any significant itching right now.No chest pain, palpitations, shortness of breath. Appetite is good. He was able to find the names of his [facility] supplements, which he identifies as: Pro Performance (BCAA), Beyond Raw: Precision, BCAA Elevated / Anaerobic Recovery [employer] and [employer]. Said the ladder supplement made him feel "shaky" all the time. Only took for one month. Review of Systems Review of Systems: as per HPI Physical Exam Physical Exam: General: 50-year-old jaundiced male who is lying back in his hospital bed, relaxed, upon my arrival. Easily arousable. A+O x 4. HEENT: NCAT. Eyes - Sclera are white, +icteric, but without injection. Mild proptosis. PERRL. EOMs display full ROM bilaterally. Mouth - Jaundiced, with MMM and no tonsillar edema or exudates. Cardiac: Normal rate and regular rhythm; S1 and S2 present with no murmurs, rub s, or gallops. Pulmonary: Good respiratory effort with symmetric expansion of the chest. No use of accessory muscles. Lungs were clear to auscultation bilaterally with no crackles or wheezes. Abdominal: Normoactive bowel sounds. Abdomen was soft, mildly distended, and non-tender to palpation. No hepatomegaly or splenomegaly. Extremities: Upper and lower extremities are warm and well perfused. Radial and dorsalis pedis pulses were 2+ b/l. Capillary refill assessed in UE was < 3 sec. 1+ pitting edema b/l. Psych: Well-developed, well-nourished, appropriately dressed for occasion. Behavior is cooperative and appropriate. Affect is WNL. Insight is appropriate. Results & Data Results & Data ([facility]) Vital Signs (Past 12 Hours) Vital Signs Temp Pulse Pulse Pulse Resp BP Pulse Ox 02/19/21 04:36 107/64 02/19/21 04:34 36.6 C 70 18 91/51 L 91 02/19/21 00:47 71 02/18/21 23:00 36.4 C L 69 18 109/68 92 02/18/21 18:46 36.7 C 66 18 121/76 96 Resident Activity Tracking Resident Involvement: Resident Care Provided Care Provided: Adult Hospital Medicine
[2021-02-19] MEDS: PIPERACILLIN/TAZOBACTAM 3.375 GM in DEXTROSE 5% 100 ML IV SCH ×2 (06:06→14:19)
[2021-02-19 06:18] LABS: Basophils # (auto) 0.03 K/uL (0-0.2); Basophils % (auto) 0.5 %; Eosinophils # (auto) 0.23 K/uL (0-0.5); Eosinophils % (auto) 3.9 %; Hematocrit (blood only) 35.9 % (42-52); Hemoglobin 12.8 g/dL (14.0-18.0); Immature Granulocytes # (auto) 0.01 K/uL (0.00-0.02); Immature Granulocytes % (auto) 0.2 %; Lymphocytes # (auto) 1.04 K/uL (1.2-3.4); Lymphocytes % (auto) 17.5 %; Mean Corpuscular Hemoglobin 32.5 pg (25-34); Mean Corpuscular Hgb Conc 35.7 g/dL (32-36); Mean Corpuscular Volume 91.1 fL (80-100); Mean Platelet Volume 11.1 fL (7.4-10.4); Monocytes # (auto) 1.06 K/uL (0.11-0.59); Monocytes % (auto) 17.8 %; Neutrophils # (auto) 3.58 K/uL (1.4-6.5); Neutrophils % (auto) 60.1 %; Platelet Count 111 K/uL (130-400); RDW Coefficient of Variation 20.5 % (11.5-14.5); RDW Standard Deviation 67.9 fL (36.4-46.3); Red Blood Count 3.94 M/uL (4.7-6.1); White Blood Count 5.95 K/uL (4.8-10.8)
[2021-02-19 06:42] LABS: Anisocytosis Present; Echinocytes 2+
[2021-02-19 06:48] LABS: Alanine Aminotransferase 146 U/L (12-78); Albumin Level 1.5 gm/dl (3.4-5.0); Alkaline Phosphatase 157 U/L (45-117); Aspartate Aminotransferase 261 U/L (15-37); Bilirubin,Total 24.6 mg/dl (0.2-1); Blood Urea Nitrogen 10 mg/dl (7-18); Calcium 8.4 mg/dl (8.5-10.1); Carbon Dioxide 26 mmol/L (21-32); Chloride 108 mmol/L (98-107); Creatine Kinase 38 U/L (39-308); Glucose 77 mg/dl (70-99); Lipase 273 U/L (73-393); Phosphorus 3.4 mg/dl (2.5-4.9); Potassium 3.5 mmol/L (3.5-5.1); Sodium 139 mmol/L (136-145)
[2021-02-19 07:01] LABS: Hepatitis A Antibody IgM NON-REACTIVE (NON-REACTIVE); Hepatitis B Core Antibody IgM NON-REACTIVE (NON-REACTIVE)
[2021-02-19] MEDS: FAMOTIDINE 20 MG in SYRINGE 3 ML IV SCH ×2 (07:54→20:14)
[2021-02-19] MEDS: METOPROLOL TARTRATE 50 MG TAB PO SCH ×2 (07:55→20:14)
[2021-02-19] MEDS: PANTOprazole 40 MG TAB PO SCH (07:55)
[2021-02-19] MEDS ORDERED: PHYTONADIONE 5 MG TAB PO STA (08:28)
[2021-02-19] MEDS: ALBUMIN 25% 12.5 GM/50 ML VIAL IV SCH ×2 (11:41→13:44)
[2021-02-19 11:51] LABS: Prothrombin Time 18.8 Seconds (9.0-12.0)
[2021-02-19 12:31] LABS: Blood Urea Nitrogen 10 mg/dl (7-18); Calcium 8.3 mg/dl (8.5-10.1); Carbon Dioxide 24 mmol/L (21-32); Chloride 107 mmol/L (98-107); Glucose 111 mg/dl (70-99); Potassium 3.1 mmol/L (3.5-5.1); Sodium 138 mmol/L (136-145)
[2021-02-19] MEDS: SPIRONOLACTONE 25 MG TAB PO SCH (17:25)
--- NOTE | 2021-02-19 18:44 | Billing Data ---
Date of Service February 19, 2021 Coding Level of Care Code 06815 Subseq Hosp Care Lvl 3
[2021-02-20 05:57] LABS: Basophils # (auto) 0.02 K/uL (0-0.2); Basophils % (auto) 0.3 %; Eosinophils # (auto) 0.28 K/uL (0-0.5); Eosinophils % (auto) 4.3 %; Hematocrit (blood only) 36.7 % (42-52); Hemoglobin 13.1 g/dL (14.0-18.0); Immature Granulocytes # (auto) 0.02 K/uL (0.00-0.02); Immature Granulocytes % (auto) 0.3 %; Lymphocytes # (auto) 0.83 K/uL (1.2-3.4); Lymphocytes % (auto) 12.6 %; Mean Corpuscular Hemoglobin 32.8 pg (25-34); Mean Corpuscular Hgb Conc 35.7 g/dL (32-36); Mean Corpuscular Volume 91.8 fL (80-100); Mean Platelet Volume 10.4 fL (7.4-10.4); Monocytes % (auto) 19.8 %; Neutrophils # (auto) 4.12 K/uL (1.4-6.5); Neutrophils % (auto) 62.7 %; Platelet Count 107 K/uL (130-400); RDW Coefficient of Variation 20.5 % (11.5-14.5); RDW Standard Deviation 68.3 fL (36.4-46.3); White Blood Count 6.57 K/uL (4.8-10.8)
[2021-02-20 06:12] LABS: Prothrombin Time 18.8 Seconds (9.0-12.0)
--- NOTE | 2021-02-20 06:26 | Hospitalist Progress Note ---
Date of Service February 20, 2021 Assessment & Plan (1) Liver cirrhosis: Plan: Luther is a 50-year-old man with a history of GERD, IPMN, gout on allopurinol, HTN, significant alcohol use (previously >16 floz of vodka/day), and recent admission for pancreatitis in 09/2020 who presented to [facility] for 4-6 weeks of jaundice, intermittent RUQ pain, nausea/vomiting, subsequently found to have evidence of acute liver injury with a hepatocellular pattern. The primary etiolo gy of his injury is suspected to be secondary to alcohol use; also possible there is a superimposed DILI from supplements and/or recent ABX (notably, amoxicillin in October). Hepatic Cirrhosis with Acute Liver Failure -- primarily founded by alcoholic, possibly with acute injury from DILI * Patient with known history of heavy alcohol use (over approx. 750cc vodka / day) and +stones (within CBD neck) on imaging. However, also noted to have recent intake of [employer] supplements and amoxicillin beginning in October for treatment of H. pylori gastritis * Work-up as follows: - Physical exam c/w findings of severe jaundice, also +anasarca, ascites - Admission LFTs: TBili 29.6 / DBili 22.7 / AST 369 / ALT 197 / ALP 217 - Admission function: Na 135 / Alb 2.0 / INR 2.0 / Cr 0.76 - Moderate Ascites. Tapped 02/18 - SAAG ~1.4 g/dL likely secondary to portal HTN. WBCs 92. - Serologies: HBsAg (-), HCV Ab (-), HAV Ab and HBcAb and EBC, CMV (pending) - Portal Vein US: (-) for PVT, findings c/w portal HTN - MRCP: Cirrhotic liver. Mildly distended GB w/o thickening, w/ stone in neck . No CBD dilation. - Mentation: Normal. A+O x 4 on repeat exams. No encephalopathy. - Patient recently treated for +H. pylori gastritis with several weeks of amoxicillin and clarithromycin - Scores: MELD 20%. Child-Powell Class C based on admission labs * Etiology at this point likely with foundation of chronic alcohol abuse with recent increase in usage over with possible acute contribution from DILI borne of recent ABX (amox/clarithro for H. pylori) +/- ?recent [employer] supplements. Not direct evidence of stone contribution at this time, but does have evidence of cholelithiasis * GI consulted, appreciate insight and recommendations: - EUS tomorrow - NPO at midnight - Consider steroids thereafter - Vitamin K p.r.n. * Liver labs slowly improving: TBili 26 / AST ~260 / ALT ~150 / ALP ~160 / Alb 1.5-2.0 (s/p paracentesis and 25g albumin x 1) * Low concern for SBP based on analysis above. Stopped Zosyn. * Spironolactone 50mg b.i.d. for portal HTN aid and potassium effects * Trend: CMP, INR, Bili * Avoid hepatotoxic medications * Na < 2g/day Coagulopathy * Admission labs significant for INR 2.0, Plt 137 * Stable. Monitor. * Vitamin K today. History of Alcohol Abuse * > 8 months since last drink per patient * Stable. Continue encouragement and support, especially in context of the above HTN: * Stable, normotensive. Continue home metoprolol. * Note -- spironolactone added for portal HTN above. VTE: SCDs Diet: heart healthy, Na < 2 g Code: Full Dispo: med/tele (2) Anasarca: (3) Ascites: (4) Cholelithiasis: (5) GERD without esophagitis: (6) IPMN (intraductal papillary mucinous neoplasm): (7) Gout: (8) Hypertension: (9) Alcoholic hepatitis: (10) History of alcohol abuse: (11) Elevated bilirubin: (12) Jaundice: Admission and Anticipated Discharge Date Admission Date: February 18, 2021 Supervising Physician Co-Signing Physician Notes I personally examined the patient and verified all baptiste points of history and exam, discussed case, and agree with decision making with Dr Parker. Other than feeling weak, no new complaints. For EUS tomorrow.. Vitals noted, in general he is awake and alert pleasant no distress. HEENT normocephalic atraumatic mucous membranes are moist. Markedly jaundiced. No focal neuro deficits. Otherwise as above. Acute hepatitissuspect underlying alcoholic liver disease, possibly with some degree of acute/chronic inflammation, possibly compounded by drug-induced liver injury creating a mixed picture. Moving forward he will need to try to minimize anything that he is taking it would be hepatic metabolized to potentially hepatic toxic. Endoscopic work-up on Sunday, likely after that will be a prolonged follow-up to see how he does, but in the early going it is reassuring that his numbers have shown an improvement, even if it is a small 1. Unfortunately vitamin K did not change INR. Continue to follow closely. Patient requested that I complete FMLA forms for his given that she will be taking time off work to help with himhe noted turnaround time being exceedingly important, and to that end he preferred to email the forms to my secure work email which I then completed and sent back to him. As above noted, discussed transplant center outpatient eval given his overall severity of illness, even though hopefully he could start to stabilize more, and certainly is not decompensating right now. Otherwise as above. Subjective Patient seen at bedside this morning. Says that following dinner last night, he did have a gurgling-like sensation in his stomach that was somewhat crampy and painful. Thankfully, it did resolve on its own and has not recurred since. He denied any nausea or vomiting at that time. Denies any chest pain, palpitations, shortness of breath. Feels well overall this morning, he got a restful night sleep. Review of Systems Review of Systems: as per HPI Physical Exam Physical Exam: General: 50-year-old jaundiced male who is lying back in his hospital bed, relaxed, upon my arrival. Easily arousable. A+O x 4. HEENT: NCAT. Eyes - Sclera are white, +icteric, but without injection. Mild proptosis. PERRL. EOMs display full ROM bilaterally. Mouth - Jaundiced, with MMM and no tonsillar edema or exudates. Cardiac: Normal rate and regular rhythm; S1 and S2 present with no murmurs, rubs, or gallops. Pulmonary: Good respiratory effort with symmetric expansion of the chest. No use of accessory muscles. Lungs were clear to auscultation bilaterally with no crackles or wheezes. Abdominal: Normoactive bowel sounds. Abdomen was soft, mildly distended, and non-tender to palpation. No hepatomegaly or splenomegaly. Extremities: Upper and lower extremities are warm and well perfused. Radial and dorsalis pedis pulses were 2+ b/l. Capillary refill assessed in UE was < 3 sec. 1+ pitting edema b/l. Psych: Well-developed, well-nourished, appropriately dressed for occasion. Behavior is cooperative and appropriate. Affect is WNL. Insight is appropriate. Results & Data Results & Data ([facility]) Vital Signs (Past 12 Hours) Vital Signs Temp Pulse Pulse Resp BP BP Pulse Ox 02/20/21 03:35 36.8 C 67 18 124/76 93 02/20/21 02:08 76 02/19/21 23:00 36.9 C 68 18 116/73 91 02/19/21 19:00 36.7 C 64 18 125/78 95 Resident Activity Tracking Resident Involvement: Resident Care Provided Care Provided: Adult Hospital Medicine
[2021-02-20 06:37] LABS: Anisocytosis Present; Echinocytes 1+; Target Cells 1+
[2021-02-20 06:43] LABS: Alanine Aminotransferase 153 U/L (12-78); Albumin Level 1.8 gm/dl (3.4-5.0); Alkaline Phosphatase 181 U/L (45-117); Aspartate Aminotransferase 268 U/L (15-37); Blood Urea Nitrogen 8 mg/dl (7-18); Calcium 8.5 mg/dl (8.5-10.1); Carbon Dioxide 25 mmol/L (21-32); Chloride 108 mmol/L (98-107); Glucose 93 mg/dl (70-99); Potassium 3.3 mmol/L (3.5-5.1); Sodium 138 mmol/L (136-145)
[2021-02-20] MEDS ORDERED: POTASSIUM PHOS 3 MMOL/1 ML INFUSION IV STA (07:15)
[2021-02-20] MEDS ORDERED: LACTATED RINGER'S 1,000 ML IV SCH (07:15)
[2021-02-20] MEDS ORDERED: SODIUM CHLORIDE 0.9% 1000ML 1,000 ML IV SCH (07:30)
[2021-02-20] MEDS ORDERED: POTASSIUM PHOSPHATE 6 MMOL in SODIUM CHLORIDE 0.9% 250 ML IV ONE (07:30)
[2021-02-20] MEDS ORDERED: PHYTONADIONE 5 MG TAB PO ONE (08:00)
[2021-02-20] MEDS: FAMOTIDINE 20 MG in SYRINGE 3 ML IV SCH ×2 (09:40→20:14)
[2021-02-20] MEDS: METOPROLOL TARTRATE 50 MG TAB PO SCH ×2 (09:50→20:14)
[2021-02-20] MEDS: SPIRONOLACTONE 25 MG TAB PO SCH ×2 (09:50→17:12)
[2021-02-20] MEDS: PANTOprazole 40 MG TAB PO SCH (09:50)
--- NOTE | 2021-02-20 16:11 | Billing Data ---
Date of Service February 20, 2021 Coding Level of Care Code 30225 Subseq Hosp Care Lvl 3
[2021-02-21 07:52] LABS: Basophils # (auto) 0.03 K/uL (0-0.2); Basophils % (auto) 0.4 %; Eosinophils # (auto) 0.27 K/uL (0-0.5); Eosinophils % (auto) 3.9 %; Hematocrit (blood only) 35.8 % (42-52); Hemoglobin 12.6 g/dL (14.0-18.0); Immature Granulocytes # (auto) 0.02 K/uL (0.00-0.02); Immature Granulocytes % (auto) 0.3 %; Lymphocytes # (auto) 1.19 K/uL (1.2-3.4); Lymphocytes % (auto) 17.1 %; Mean Corpuscular Hemoglobin 32.4 pg (25-34); Mean Corpuscular Hgb Conc 35.2 g/dL (32-36); Mean Platelet Volume 10.3 fL (7.4-10.4); Monocytes # (auto) 1.18 K/uL (0.11-0.59); Neutrophils # (auto) 4.25 K/uL (1.4-6.5); Neutrophils % (auto) 61.3 %; Platelet Count 109 K/uL (130-400); RDW Coefficient of Variation 20.7 % (11.5-14.5); Red Blood Count 3.89 M/uL (4.7-6.1); White Blood Count 6.94 K/uL (4.8-10.8)
[2021-02-21 08:24] LABS: Anisocytosis Present; Echinocytes 1+; Target Cells 1+
[2021-02-21 08:37] LABS: Alanine Aminotransferase 148 U/L (12-78); Albumin Level 1.5 gm/dl (3.4-5.0); Alkaline Phosphatase 152 U/L (45-117); Aspartate Aminotransferase 257 U/L (15-37); Bilirubin,Total 24.3 mg/dl (0.2-1); Blood Urea Nitrogen 7 mg/dl (7-18); Calcium 8.6 mg/dl (8.5-10.1); Carbon Dioxide 20 mmol/L (21-32); Chloride 109 mmol/L (98-107); Glucose 85 mg/dl (70-99); Potassium 3.4 mmol/L (3.5-5.1); Sodium 139 mmol/L (136-145)
[2021-02-21 09:32] LABS: Prothrombin Time 19.5 Seconds (9.0-12.0)
[2021-02-21] MEDS ORDERED: PHYTONADIONE 5 MG in SODIUM CHLORIDE 0.9% 50 ML IV STA (09:47)
[2021-02-21] MEDS: METOPROLOL TARTRATE 50 MG TAB PO SCH ×2 (10:57→20:34)
[2021-02-21] MEDS: SPIRONOLACTONE 25 MG TAB PO SCH ×2 (10:58→17:36)
[2021-02-21] MEDS: FAMOTIDINE 20 MG in SYRINGE 3 ML IV SCH ×2 (10:59→20:35)
[2021-02-21] MEDS: PANTOprazole 40 MG TAB PO SCH (10:59)
[2021-02-21] MEDS ORDERED: Influenza Vaccine (Fluarix) 0.5 ML SYR (Standard Dose) IM ONE (11:45)
[2021-02-21 12:05] LABS: CMV IgG Antibody >10.00 U/mL; CMV IgM Antibody <30.00 AU/mL
--- NOTE | 2021-02-21 12:40 | Gastroenterology Progress Note ---
Date of Service February 21, 2021 Assessment & Plan (1) Liver cirrhosis: Plan: gave 5meq Vit K today. Recheck INR early tomorrow, may repeat Pt tells us he is abstaining. No clear trigger for decompensation of cirrhosis Will keep NPO tonight and likely to EUS tomorrow, will re-evaluate early tomorrow May have clear liquids today. (2) IPMN (intraductal papillary mucinous neoplasm): Plan: OP f/u imaging. (3) Jaundice: Plan: See liver cirrhosis. NO indication for steroids becuase not considered ETOH hepatitis because no rece nt ETOH intake. Admission and Anticipated Discharge Date Admission Date: February 18, 2021 Supervising Physician Co-Signing Physician Notes Attending attestation I have seen, examined this patient, and agree with the findings and above by our mid-level provider DAPHNIE Gandara, with the following additions: -Discussed with hematology in [place], agree that needs biopsy. Will attempt additional vitamin K plus or minus FFP in evaluate with radiology availability. -We will start empiric steroids at this time although patient adamantly denies evidence of recent drinking -Complete work-up with serologies, however with high meld will need expedited evaluation and transplant center. Subjective 50 yr old male pt of DAPHNIE Cobb Admitted September 2020 for alcoholic hepatitis and pancreatitis with pt report of abstinence since July 2020. Jaundice x 4-6 wks, worsening weakness, some nausea/vomiting, most recently last week. T BIli on arrival 29->24 today. Plan was for EUS today, INR 2.0, given Vit K, holding on EUS. Most recent EGD/EUS October 22, 2020: PHG, gastric ulcer, duodenal bx suggestive for Celiac; 7mm pancreatic body cyst, gallbladder sludge. Path w/o evidence of Celiac; + for H Pylori (treated). Review of Systems Review of Systems: ROS: Gen: + Weakness, No fevers, weight loss Eyes: + icterus; No eye redness, or pain, no recent vision changes Resp: No SOB, no cough Cardio: No palpitations/irregular beats, no chest pain GI: No abdominal pain + Nausea/vomiting - few episodes prior to arrival : Denies pain on urination Skin: + Jaundice Physical Exam Constitutional: well developed and + ill appearing ENMT: + icterus Respiratory: normal respiratory effort, lungs clear to auscultation Cardiovascular: RRR, no murmur, no edema Gastrointestinal (Abdomen): normal bowel sounds, soft, nontender, no hepatosplenomegaly Skin: + jaundice Neurologic: PERRL, EOMI, accommodation nl, no face palsy, no dysarthria awake; not confused Psychiatric: A+Ox3, euthymic affect Orientation: alert, oriented x 3 and cooperative Lymphatic: no cervical or axillary lymphadenopathy Results & Data ([facility]) Vital Signs (Past 12 Hours) Vital Signs Temp Pulse Resp BP BP Pulse Ox 02/21/21 12:00 36.7 C 64 18 143/84 H 94 02/21/21 11:31 36.6 C 63 20 130/82 91 02/21/21 10:54 36.7 C 63 16 145/81 H 95 02/21/21 07:54 36.6 C 62 20 135/87 93 Laboratory Results WBC 6, Hb 12, Hct 38, Plts 109, Na 139, K 3.4, Cl 109, CO220, T Bili 29->24; AST 369->257, ALT 197->148; Alk Phos 181->152. Diagnostic Findings MRCP 02/18/21: 1. Cirrhotic liver with splenomegaly and a small amount of ascites. This is similar to the prior CT examination. 2. Mildly distended gallbladder. However, no gallbladder wall thickening. This again noted a punctate stone near the gallbladder neck. However, no definite stones within the common bile duct which appears normal in caliber Portal vein US: 1. No definite portal vein thrombosis. 2. Reversal of flow within the portal and splenic veins consistent portal hypertension in the setting of the patient's cirrhosis. 3. Moderate ascites, unchanged.
--- NOTE | 2021-02-21 13:38 | Hospitalist Progress Note ---
Date of Service February 21, 2021 Assessment & Plan (1) Liver cirrhosis: Plan: Luther is a 50-year-old man with a history of significant alcohol use (previously >16 floz of vodka/day), cirrhosis, GERD, IPMN, gout, HTN who was admitted to [facility] on 02/18 for acute on chronic liver failure. Acute on Chronic Liver Failure Suspect due to worsening cirrhosis given prolonged alcohol abuse, although the patient denies any alcohol use for 6-8 months. Also bile duct pathology may be playing a role in acute exacerbation given choledocholithiasis on imaging. Lastly drug-induced liver injury (2/2 supplement use) may be contributing. - Bilirubin remains elevated in mid-20s and LFTs remain elevated in 100s-200s. - Hepatitis panel negative and CMV/EBV IgG positive (but IgM negative) - GI consulted - appreciate recs - s/p paracentesis on 02/18 - negative for infection or malignancy; likely due to portal HTN - INR remains at 2 today; EUS postponed until tomorrow and was given Vitamin K x1 today - MELD 20%. Child-Powell Class C - based on admission labs - will plan to call [facility] to discuss disposition planning for this patient, as he currently does not meet criteria for emergent liver transplant although may be a good candidate for outpatient evaluation for this, given severe cirrhosis and alcohol cessation >6 months ago - continue Spironolactone 50mg BID - trend CMP daily - avoid hepatotoxic medications Severe Alcohol Use Disorder, in Mild Remission 6-8 months since last drink per patient. HTN: Stable, normotensive. - Continue home Lopressor - continue Spironolactone DVT ppx: SCDs, hold chemoppx given EUS scheduled for tomorrow GI ppx: Pepcid 20mg IV BID, Protonix 40mg PO daily Diet: heart healthy, Na < 2 g CODE STATUS: full code Dispo: med/tele (2) Anasarca: (3) Ascites: (4) Cholelithiasis: (5) GERD without esophagitis: (6) IPMN (intraductal papillary mucinous neoplasm): (7) Gout: (8) Hypertension: (9) Alcoholic hepatitis: (10) History of alcohol abuse: (11) Elevated bilirubin: (12) Jaundice: Admission and Anticipated Discharge Date Admission Date: February 18, 2021 Supervising Physician Co-Signing Physician Notes Attending attestation Pt seen and examined in concert with Dr. Mcfarland. In agreement with the documented findings as noted in the resident documentation with any exceptions or additions as noted here. Stable jaundice without abdominal pain, n/v, vision/hearing changes, lightheadedness. Continues to report sobriety x 5-8 months with variable start date. On examination, significant jaundice with scleral icterus. S1/S2 nl RRR no MCG. CTAB. Abd mildly distended, nontender. Nl BS Acute on chronic hepatic failure with elevated Bili and INR of 2 - GI consult - holding for EUS tomorrow following additional vit K. GGT today based on h/o etOH use. Consider steroid course in the AM depending on lab results and EUS results s/p discussion with Dr. Schmidt. Continue spironolactone. Else see resident documentation as noted. Subjective No acute events overnight. Was NPO since midnight for EUS but INR was 2.0 again so it was cancelled. Today the patient reports feeling well overall. Remains severely jaundiced. Denies fever/chills, chest pain, palpitations, SOB, cough, N/V, abdominal pain. Review of Systems Review of Systems: All systems reviewed & are unremarkable except as noted in HPI & below Physical Exam Physical Exam: General: A&Ox3. NAD. Cooperative. Jaundiced. HEENT: Atraumatic, normocephalic. Scleral icterus. Pulm: CTAB A&P. -wheezes, -rales, -rhonchi. Symmetrical chest rise. No increase work of breathing. No respiratory distress. Cardiac: RRR, -mrg. Radial pulses intact and symmetrical. Abdominal: soft, non-tender, non-distended, BS x 4 Skin: completely jaundiced Results & Data Results & Data ([facility]) Vital Signs (Past 12 Hours) Vital Signs Temp Pulse Resp BP BP Pulse Ox 02/21/21 12:48 36.5 C 64 20 125/88 95 02/21/21 12:00 36.7 C 64 18 143/84 H 94 02/21/21 11:31 36.6 C 63 20 130/82 91 02/21/21 10:54 36.7 C 63 16 145/81 H 95 02/21/21 07:54 36.6 C 62 20 135/87 93 Resident Activity Tracking Resident Involvement: Resident Care Provided Care Provided: Adult [facility]
[2021-02-22 06:57] LABS: Basophils # (auto) 0.06 K/uL (0-0.2); Basophils % (auto) 0.9 %; Eosinophils # (auto) 0.25 K/uL (0-0.5); Eosinophils % (auto) 3.6 %; Hematocrit (blood only) 37.7 % (42-52); Hemoglobin 13.7 g/dL (14.0-18.0); Immature Granulocytes # (auto) 0.02 K/uL (0.00-0.02); Immature Granulocytes % (auto) 0.3 %; Lymphocytes # (auto) 1.09 K/uL (1.2-3.4); Lymphocytes % (auto) 15.7 %; Mean Corpuscular Hemoglobin 32.9 pg (25-34); Mean Corpuscular Hgb Conc 36.3 g/dL (32-36); Mean Corpuscular Volume 90.4 fL (80-100); Mean Platelet Volume 9.9 fL (7.4-10.4); Monocytes # (auto) 0.92 K/uL (0.11-0.59); Monocytes % (auto) 13.3 %; Neutrophils % (auto) 66.2 %; Platelet Count 112 K/uL (130-400); RDW Coefficient of Variation 20.6 % (11.5-14.5); RDW Standard Deviation 67.2 fL (36.4-46.3); Red Blood Count 4.17 M/uL (4.7-6.1); White Blood Count 6.94 K/uL (4.8-10.8)
[2021-02-22 07:02] LABS: Prothrombin Time 18.8 Seconds (9.0-12.0)
[2021-02-22 07:29] LABS: Anisocytosis Present; Echinocytes 1+; Target Cells 1+
[2021-02-22 07:40] LABS: Alanine Aminotransferase 149 U/L (12-78); Albumin Level 1.6 gm/dl (3.4-5.0); Aspartate Aminotransferase 245 U/L (15-37); Blood Urea Nitrogen 9 mg/dl (7-18); Calcium 8.9 mg/dl (8.5-10.1); Carbon Dioxide 22 mmol/L (21-32); Chloride 109 mmol/L (98-107); Glucose 83 mg/dl (70-99); Magnesium 1.8 mg/dl (1.8-2.4); Potassium 3.8 mmol/L (3.5-5.1); Sodium 140 mmol/L (136-145)
[2021-02-22 07:45] LABS: Alkaline Phosphatase 159 U/L (45-117); Bilirubin,Total 26.4 mg/dl (0.2-1); Phosphorus 3.4 mg/dl (2.5-4.9)
--- NOTE | 2021-02-22 08:01 | Anesthesiology Consultation ---
Date of Service February 22, 2021 Assessment & Plan (1) Encounter for pre-operative examination: Chart Review Chart Review: Acceptable Risk for Surgery and Patient NOT seen in Pre Admission Testing Will order preop ECG. Covid neg 02/17/21. Consults Requested none History Surgery Operation Date: 02/21/21 07:00 Proposed Procedures p Endoscopic Ultrasonography Kike Cristina DO Operation Date: 02/22/21 09:25 Proposed Procedures p Endoscopic Ultrasonography Kike Cristina DO Height/Weight Height: 6 ft 4 in Weight: 122.9 kg Allergies Allergy/AdvReac Type Severity Reaction Status Date / Time No Known Drug Allergies Allergy Unknown Verified 02/17/21 21:43 Medications Home Medications Medication Instructions Recorded Confirmed Last Taken allopurinol 300 mg tablet 300 mg PO HS #90 tab 10/20/20 02/17/21 Unknown metoprolol tartrate 50 mg tablet 50 mg PO BID #180 tab 10/20/20 02/17/21 Unknown omeprazole 40 mg capsule,delayed 40 mg PO DAILY 02/17/21 02/17/21 Unknown release trazodone 100 mg tablet 50 - 100 mg PO HS PRN 02/17/21 02/17/21 Unknown Active Medications Generic Name Dose Route Start Last Admin Trade Name Freq PRN Reason Stop Dose Admin Famotidine 20 mg/ Syringe 5 mls @ 2.5 mls/min 02/18/21 08:00 02/21/21 20:35 IV 03/20/21 07:59 2.5 mls/min Q12 JARED Administration Metoprolol Tartrate 50 mg 02/18/21 09:00 02/21/21 20:34 Metoprolol Tartrate 50 Mg Tab PO 03/20/21 08:59 50 mg BID JARED Administration Pantoprazole Sodium 40 mg 02/18/21 09:00 02/21/21 10:59 Pantoprazole 40 Mg Tab PO 03/20/21 08:59 40 mg DAILY JARED Administration Protocol Spironolactone 50 mg 02/19/21 17:00 02/21/21 17:36 Spironolactone 25 Mg Tab PO 03/21/21 16:59 50 mg BID17 JARED Administration NPO Date Last Intake of Fluids: 02/21/21 Time Last Intake of Fluids: 23:59 Date Last Intake of Solids: 02/21/21 Time Last Intake of Solids: 23:59 Past Medical History Medical History (Updated 02/22/21 @ 07:57 by Refugio Cummins MD) Anasarca Ascites Coagulopathy Elevated bilirubin Encounter for pre-operative examination GERD without esophagitis Gout History of alcohol abuse IPMN (intraductal papillary mucinous neoplasm) (~09/18/20) 7 mm cystic lesion within the pancreatic body likely representing a side branch IPMN Jaundice Liver cirrhosis Patient being treated with VitK 2/2 increased INR. Liver cirrhosis/ascites/anasarca/jaundice/cholelithiasis- Patient underwent extensive work-up in the emergency department including CT abdomen pelvis with contrast, and then was ordered ultrasound of abdomen by the ED. The patient's MRCP was delayed, and results have returned late this morning showing moderate ascites and over distended gallbladder with no distinct stones. The extrahepatic biliary tree was suboptimally seen. There is mild splenomegaly noted. The patient was started on Zosyn in the emergency department will be continued CT scan of abdomen pelvis had noted cirrhosis and a stone in the gallbladder neck, which was not noted on MRCP, with question of possible passage of the stone. Patient had paracentesis on 02/18. 2.5 Liters removed. Negative for infection or malignancy. Likely due to portal HTN. MELD 20%. Child-Powell Class C-based on admission labs. Acute on Chronic Liver Failure: "plan to call [facility] Trans[facility] Center to discuss disposition planning for this patient, as he currently does not meet criteria for emergent liver transplant a lthough may be a good candidate for outpatient evaluation for this, given severe cirrhosis and alcohol cessation >6 months ago" Past Family History Family History Family/Other Myocardial infarction patient notes several [place] on father and mothers side Mother Kidney disease Grandmother (Paternal) Diabetes Grandfather (Maternal) Black lung Grandfather No problems noted. Grandfather (Paternal) Black lung Uncle Black lung Denies family history of Ovarian cancer Prostate cancer Breast cancer Colorectal cancer Past Surgical History Surgical History (Updated 02/22/21 @ 07:44 by Refugio Cummins MD) H/O knee surgery left x 2 Social History Smoking Status: Never smoker Do You Dip or Chew Tobacco: No Hx Alcohol Use: Yes Alcohol type: wine alcohol intake frequency: holidays/special occasions only Hx Substance Use: No Physical Exam Vital Signs Last Vital Signs Temp 36.8 C 02/21/21 22:06 Pulse 63 02/21/21 22:06 Resp 16 02/21/21 22:06 BP 126/81 02/21/21 22:06 Pulse Ox 92 02/21/21 22:06 Testing Laboratory Results 02/22/21 06:23 02/22/21 06:23 PT 18.8 Seconds (9.0-12.0) H 02/22/21 06:23 INR 2.0 (0.9-1.1) H 02/22/21 06:23 Urine Color Dark Yellow 02/18/21 01:34 Urine Appearance Cloudy (Clear) A 02/18/21 01:34 Urine pH 7.0 (4.5-7.5) 02/18/21 01:34 Ur Specific [place] 1.045 (1.000-1.030) H 02/18/21 01:34 Urine Protein Trace (Negative) H 02/18/21 01:34 Urine Glucose (UA) Negative (Negative) 02/18/21 01:34 Urine Ketones Negative (Negative) 02/18/21 01:34 Urine Nitrite Positive (Negative) A 02/18/21 01:34 Ur Leukocyte Esterase 1+ (Negative) H 02/18/21 01:34 Urine WBC (Auto) 0 /hpf (0-5) 02/18/21 01:34 Urine RBC (Auto) 0-4 /hpf (0-4) 02/18/21 01:34 U Hyaline Cast (Auto) 1-5 /lpf (0-5) 02/18/21 01:34 U Epithel Cells (Auto) 0-5 /lpf (0-5) 02/18/21 01:34 Urine Bacteria (Auto) Negative (Negative) 02/18/21 01:34 02/17/21 20:16 Aerobic Blood Culture - Preliminary Blood No growth in Aerobic bottle after 48 hours. Anaerobic Blood Culture - Preliminary No growth in Anaerobic bottle after 48 hours. 02/18/21 Unknown Gram Stain - Final Peritoneal Fluid Aerobic and Anaerobic Culture - Preliminary No growth to date. 02/17/21 20:16 Aerobic Blood Culture - Preliminary Blood No growth in Aerobic bottle after 48 hours. Anaerobic Blood Culture - Preliminary No growth in Anaerobic bottle after 48 hours. INR remains 2 today 02/22/21
[2021-02-22] MEDS ORDERED: PHYTONADIONE 10 MG in SODIUM CHLORIDE 0.9% 50 ML IV ONE (09:15)
[2021-02-22] MEDS: prednisoLONE SYRUP 15 MG/5 ML BTL PO SCH (10:25)
[2021-02-22] MEDS: FAMOTIDINE 20 MG in SYRINGE 3 ML IV SCH ×2 (10:25→21:50)
[2021-02-22] MEDS: METOPROLOL TARTRATE 50 MG TAB PO SCH ×2 (10:25→21:08)
[2021-02-22] MEDS: SPIRONOLACTONE 25 MG TAB PO SCH ×2 (10:25→16:55)
[2021-02-22] MEDS: PANTOprazole 40 MG TAB PO SCH (10:25)
--- NOTE | 2021-02-22 11:45 | Gastroenterology Progress Note ---
Date of Service February 22, 2021 Assessment & Plan (1) Liver cirrhosis: Plan: gave 10meq Vit K today. Recheck INR early tomorrow - likely not a candidate for EUS. Would be better served by an transjugular approach by IR, not available here - so considering transferring for this and w/u for liver transplant. Pt tells us he is abstaining. Will add a few liver serology tests, not yet ordered: EMILIANO, AMA, ASMA. (2) IPMN (intraductal papillary mucinous neoplasm): Plan: OP f/u imaging. (3) Jaundice: Plan: Will continue prednisolone 40mg daily for now as medically most likely cause is continued alcohol intake - though pt denies this. Admission and Anticipated Discharge Date Admission Date: February 18, 2021 Supervising Physician Co-Signing Physician Notes Attending attestation I have seen, examined this patient, and agree with the findings and above by our mid-level provider DAPHNIE Gnadara, with the following additions: -Discussed with hematology in [place], agree that needs biopsy. Will attempt additional vitamin K plus or minus FFP in evaluate with radiology availability. -We will start empiric steroids at this time although patient adamantly denies evidence of recent drinking -Complete work-up with serologies, however with high meld will need expedited evaluation and transplant center. Subjective After 5meq VIt K yesterday, INR 2 today. EUS cancelled. 10 Vit K given today. Bili today 26 (24 yesterday). After discussion with primary hospitalist who tells me that the pt wavered a bit when asked about alcohol - and eventually admitted to having drank about 4 months ago, prednisonolone was initiated. During our interview with the pt, when asked about alcohol, pt reports last drink was 8m ago. Pt is awake, alert, oriented, free of pain. Review of Systems Review of Systems: ROS: Gen: + Weakness, No fevers, weight loss Eyes: + icterus; No eye redness, or pain, no recent vision changes Resp: No SOB, no cough Cardio: No palpitations/irregular beats, no chest pain GI: No abdominal pain + Nausea/vomiting - few episodes prior to arrival : Denies pain on urination Skin: + Jaundice Physical Exam Constitutional: well developed and + ill appearing Respiratory: normal respiratory effort, lungs clear to auscultation Cardiovascular: RRR, no murmur, no edema Gastrointestinal (Abdomen): normal bowel sounds, soft, nontender, no hepatosplenomegaly Neurologic: PERRL, EOMI, accommodation nl, no face palsy, no dysarthria awake; not confused Psychiatric: A+Ox3, euthymic affect Orientation: alert, oriented x 3 and cooperative Lymphatic: no cervical or axillary lymphadenopathy Results & Data ([place]) Vital Signs (Past 12 Hours) Vital Signs Temp Pulse Resp BP Pulse Ox 02/22/21 11:23 36.6 C 60 16 146/82 H 95 02/22/21 10:53 36.6 C 63 16 129/76 92 02/22/21 10:23 36.7 C 67 18 120/77 94 02/22/21 07:45 36.4 C L 65 16 135/84 94 Laboratory Results WBC 6, Hb 13, Hct 37, Plts 112, PT 18, INR 2, Na 140, K 3.8, Cl 107, CO2 28, BUN 9, Cr - unknown as sample is icteric Diagnostic Findings CT 02/17: cirrhosis, moderate ascites. Bile ducts clear.
--- NOTE | 2021-02-22 12:04 | Hospitalist Progress Note ---
Date of Service February 22, 2021 Assessment & Plan (1) Liver cirrhosis: Plan: Luther is a 50-year-old man with a history of significant alcohol use (previously >16 floz of vodka/day), cirrhosis, GERD, IPMN, gout, HTN who was admitted to [facility] on 02/18 for acute on chronic liver failure. Acute on Chronic Liver Failure Suspect due to worsening cirrhosis given prolonged alcohol abuse, although the patient denies any alcohol use for 6-8 months. No signs of biliary obstruction on MRCP. Drug-induced liver injury (2/2 supplement use) may be contributing but is less likely. - Bilirubin remains elevated in mid-20s and LFTs remain elevated in 100s-200s. - Hepatitis panel negative and CMV/EBV IgG positive (but IgM negative) - GGT, EMILIANO, Ansi-mitochondrial, Anti-smooth muscle pending - Discriminant score of 57.7 - poor prognosis - GI consulted - appreciate recs - s/p paracentesis on 02/18 - negative for infection or malignancy; likely due to portal HTN - INR remains at 2 today; EUS postponed. Consider FFP if INR remains elevated tomorrow - consider transjugular liver biopsy tomorrow per IR - started Prednisolone 40mg PO daily for suspected alcoholic hepatitis - continue Spironolactone 50mg BID - trend CMP daily - avoid hepatotoxic medications Severe Alcohol Use Disorder, in Mild Remission 6-8 months since last drink per patient. - encouraged cessation HTN: Stable, normotensive. - Continue home Lopressor - continue Spironolactone DVT ppx: SCDs, hold chemoppx given possible biopsy tomorrow GI ppx: Pepcid 20mg IV BID, Protonix 40mg PO daily Diet: heart healthy, Na < 2 g CODE STATUS: full code Dispo: med/tele (2) Anasarca: (3) Ascites: (4) Cholelithiasis: (5) GERD without esophagitis: (6) IPMN (intraductal papillary mucinous neoplasm): (7) Gout: (8) Hypertension: (9) Alcoholic hepatitis: (10) History of alcohol abuse: (11) Elevated bilirubin: (12) Jaundice: Admission and Anticipated Discharge Date Admission Date: February 18, 2021 Supervising Physician Co-Signing Physician Notes Attending attestation Pt seen and examined in concert with Dr. Mcfarland. In agreement with the documented findings as noted in the resident documentation with any exceptions or additions as noted here. Patient reports of abdominal pain and bloating are generally improved/stable from yesterday. Tolerating POI well without n/v. On examination, S1/S2 nl RRR no MCG. CTAB. Abd distended stable from yesterday, diffusely mildly TTP worse at epigastrium, BS+, unchanged jaundic and icterus Acute on chronic liver failure with concern for alcoholic hepatitis - GI consult - continue spironolaction, addition of steroid therapy. GI recommendations appreciated. Re: consideration of liver bx, d/w GI team and IR, consider transfer vs. FFP infusion if needed considering INR of 2 Severe alcohol use disorder - no withdrawal sx at present, monitor closely, reinforce cessation. Else see resident documentation as noted. Subjective No acute events overnight. Reports only mild lower abdominal pain that is improved today. Denies fever/chills, chest pain, palpitations, cough, SOB, N/V, abdominal pain. Review of Systems Review of Systems: All systems reviewed & are unremarkable except as noted in HPI & below Physical Exam Physical Exam: General: A&Ox3. NAD. Cooperative. Jaundiced. HEENT: Atraumatic, normocephalic. Scleral icterus. Pulm: CTAB A&P. -wheezes, -rales, -rhonchi. Symmetrical chest rise. No increase work of breathing. No respiratory distress. Cardiac: RRR, -mrg. Radial pulses intact and symmetrical. Abdominal: soft, non-tender, non-distended, BS x 4 Skin: completely jaundiced Results & Data Results & Data ([facility]) Vital Signs (Past 12 Hours) Vital Signs Temp Pulse Resp BP Pulse Ox 02/22/21 11:23 36.6 C 60 16 146/82 H 95 02/22/21 10:53 36.6 C 63 16 129/76 92 02/22/21 10:23 36.7 C 67 18 120/77 94 02/22/21 07:45 36.4 C L 65 16 135/84 94 Resident Activity Tracking Resident Involvement: Resident Care Provided Care Provided: Adult [facility]
--- NOTE | 2021-02-22 16:10 | Electrocardiogram Report ---
Test Reason : Blood Pressure : / mmHG Vent. Rate : 063 BPM Atrial Rate : 063 BPM P-R Int : 172 ms QRS Dur : 102 ms QT Int : 440 ms P-R-T Axes : 063 058 016 degrees QTc Int : 450 ms Normal sinus rhythm Normal ECG No previous ECGs available Confirmed by Escobar Turcios ([id number]) on 02/22/2021 4:09:53 PM Referred By: REFERRED SELF Confirmed By:Pietro Turcios
[2021-02-23 06:11] LABS: Basophils # (auto) 0.01 K/uL (0-0.2); Basophils % (auto) 0.1 %; Eosinophils # (auto) 0.01 K/uL (0-0.5); Eosinophils % (auto) 0.1 %; Hematocrit (blood only) 37.3 % (42-52); Hemoglobin 13.5 g/dL (14.0-18.0); Immature Granulocytes # (auto) 0.02 K/uL (0.00-0.02); Immature Granulocytes % (auto) 0.2 %; Lymphocytes # (auto) 0.62 K/uL (1.2-3.4); Lymphocytes % (auto) 6.1 %; Mean Corpuscular Hemoglobin 32.8 pg (25-34); Mean Corpuscular Hgb Conc 36.2 g/dL (32-36); Mean Corpuscular Volume 90.5 fL (80-100); Mean Platelet Volume 10.9 fL (7.4-10.4); Monocytes # (auto) 0.97 K/uL (0.11-0.59); Monocytes % (auto) 9.5 %; Neutrophils # (auto) 8.58 K/uL (1.4-6.5); Platelet Count 139 K/uL (130-400); RDW Coefficient of Variation 20.4 % (11.5-14.5); RDW Standard Deviation 67.7 fL (36.4-46.3); Red Blood Count 4.12 M/uL (4.7-6.1); White Blood Count 10.21 K/uL (4.8-10.8)
[2021-02-23 06:20] LABS: INR 1.9 (0.9-1.1); Prothrombin Time 18.3 Seconds (9.0-12.0)
[2021-02-23 06:49] LABS: Anisocytosis Present; Echinocytes 2+; Target Cells 1+
[2021-02-23 07:12] LABS: Alanine Aminotransferase 125 U/L (12-78); Albumin Level 1.6 gm/dl (3.4-5.0); Alkaline Phosphatase 168 U/L (45-117); Aspartate Aminotransferase 176 U/L (15-37); Bilirubin,Total 26.9 mg/dl (0.2-1); Blood Urea Nitrogen 11 mg/dl (7-18); Carbon Dioxide 21 mmol/L (21-32); Chloride 108 mmol/L (98-107); Glucose 117 mg/dl (70-99); Magnesium 1.9 mg/dl (1.8-2.4); Potassium 4.2 mmol/L (3.5-5.1); Sodium 137 mmol/L (136-145)
[2021-02-23] MEDS ORDERED: PHYTONADIONE PED 1 MG/0.5ML AMP/SYRG IV ONE (09:20)
[2021-02-23] MEDS ORDERED: PHYTONADIONE 10 MG in SODIUM CHLORIDE 0.9% 50 ML IV ONE (09:30)
[2021-02-23] MEDS: FAMOTIDINE 20 MG in SYRINGE 3 ML IV SCH ×2 (10:12→20:51)
[2021-02-23] MEDS: METOPROLOL TARTRATE 50 MG TAB PO SCH ×2 (10:13→20:51)
[2021-02-23] MEDS: prednisoLONE SYRUP 15 MG/5 ML BTL PO SCH (10:14)
[2021-02-23] MEDS: SPIRONOLACTONE 25 MG TAB PO SCH ×2 (10:14→17:22)
[2021-02-23] MEDS: PANTOprazole 40 MG TAB PO SCH (10:14)
[2021-02-23 12:21] LABS: Iron 126 mcg/dl (35-175); Transferrin 92 mg/dl (200-360); Transferrin Percent Saturation 97 % (20-50)
--- NOTE | 2021-02-23 12:33 | Hospitalist Progress Note ---
Date of Service February 23, 2021 Assessment & Plan (1) Liver cirrhosis: Plan: Luther is a 50-year-old man with a history of significant alcohol use (previously >16 floz of vodka/day), cirrhosis, GERD, IPMN, gout, HTN who was admitted to [facility] on 02/18 for acute on chronic liver failure. Acute on Chronic Liver Failure Suspect due to worsening cirrhosis given prolonged alcohol abuse, although the patient denies any alcohol use for 6-8 months. No signs of biliary obstruction on MRCP. Drug-induced liver injury (2/2 supplement use) may be contributing but is less likely. - Bilirubin remains elevated in mid-20s and LFTs remain elevated in 100s-200s. - Hepatitis panel negative and CMV/EBV IgG positive (but IgM negative) - EMILIANO, Ansi-mitochondrial, Anti-smooth muscle, ceruloplasmin, alpha-1 antitrypsin pending - Discriminant score of 57.7 - poor prognosis - GI consulted - appreciate recs - s/p paracentesis on 02/18 - negative for infection or malignancy; likely due to portal HTN - INR remains at 1.9 today; biopsy unable to be performed - continue Prednisolone 40mg PO daily for suspected alcoholic hepatitis - patient will follow up with [facility] Hepatology as outpatient for liver transplant consultation - continue Spironolactone 50mg BID - trend CMP daily - avoid hepatotoxic medications Severe Alcohol Use Disorder, in Mild Remission 6-8 months since last drink per patient. - encouraged cessation HTN: Stable, normotensive. - Continue home Lopressor - continue Spironolactone DVT ppx: SCDs GI ppx: Pepcid 20mg IV BID, Protonix 40mg PO daily Diet: heart healthy, Na < 2 g CODE STATUS: full code Dispo: med/surg with tele (2) Anasarca: (3) Ascites: (4) Cholelithiasis: (5) GERD without esophagitis: (6) IPMN (intraductal papillary mucinous neoplasm): (7) Gout: (8) Hypertension: (9) Alcoholic hepatitis: (10) History of alcohol abuse: (11) Elevated bilirubin: (12) Jaundice: Admission and Anticipated Discharge Date Admission Date: February 18, 2021 Supervising Physician Co-Signing Physician Notes Attending attestation Pt seen and examined in concert with Dr. Mcfarland. In agreement with the documented findings as noted in the resident documentation with any exceptions or additions as noted here. Continued mild abdominal pain and bloating stable from previous. Tolerating POI On examination, S1/S2 nl RRR no MCG. CTAB. Abd distended stable from yesterday, nontender abdomen, BS+, unchanged jaundice and icterus Acute on chronic liver failure with concern for alcoholic hepatitis - GI consult - continue spironolactione, prednisone therapy. Unable to perform liver biopsy through IR at [facility]. After discussion for further management with GI and transplant @ [facility], agree w/ dispo for outpatient transplant evaluation Severe alcohol use disorder - no withdrawal sx at present, monitor closely, reinforce cessation. Else see resident documentation as noted. Subjective No acute events overnight. Denies fever/chills, chest pain, palpitations, cough, SOB, N/V, abdominal pain. Review of Systems Review of Systems: All systems reviewed & are unremarkable except as noted in HPI & below Physical Exam Physical Exam: General: A&Ox3. NAD. Cooperative. Jaundiced. HEENT: Atraumatic, normocephalic. Scleral icterus. Pulm: CTAB A&P. -wheezes, -rales, -rhonchi. Symmetrical chest rise. No increase work of breathing. No respiratory distress. Cardiac: RRR, -mrg. Radial pulses intact and symmetrical. Abdominal: soft, non-tender, non-distended, BS x 4 Skin: completely jaundiced Results & Data Results & Data ([facility]) Vital Signs (Past 12 Hours) Vital Signs Temp Pulse Resp BP Pulse Ox 02/23/21 08:33 36.4 C L 70 16 143/84 H 94 Resident Activity Tracking Resident Involvement: Resident Care Provided Care Provided: Adult Hospital Medicine
--- NOTE | 2021-02-23 14:50 | Gastroenterology Progress Note ---
Date of Service February 23, 2021 Assessment & Plan (1) Liver cirrhosis: Plan: Empirically treating ETOH hepatitis with prednisolone - continue. Gave 10meq Vit K today but do not expect to normalize the INR. Discussed with Dr. Cristina who would provide EUS with liver bx if INR were lower - he thinks transjugular approach is more beneficial. Discussed with radiology here at [facility] - also feel that transjugular approach would be more beneficial (concerned may have poor healing due to ascites, also concern for bleeding with INR 1.9 though could arrange FFPs). Low salt, regular consistency diet. Will Continue to follow LFTs, INR. Has [facility] Hep[facility] appt [facility] 03[facility]. Arranging OP IR transjugular bx at [facility] - hopefully next week. (2) IPMN (intraductal papillary mucinous neoplasm): Plan: OP f/u imaging. (3) Jaundice: Plan: See liver cirrhosis. Admission and Anticipated Discharge Date Admission Date: February 18, 2021 Supervising Physician Co-Signing Physician Notes Attending attestation I have seen, examined this patient, and agree with the findings and above by our mid-level provider Elin Gandara. Clinically has improved on steroids Arranging outpatient evaluation and transplant eval expeditiously. Subjective 50 male acute on chronic liver failure with concern for alcoholic hepatitis Ascites: paracentesis 02/18 culture (-). T Bili 26 yesterday 26 again today. AST 367 yesterday ->176 today. ALT 197->125. Alk Phos 217->168. No acute events overnight. Reports only mild lower abdominal pain that is improved today. Denies fever/chills, chest pain, palpitations, cough, SOB, N/V, abdominal pain. Review of Systems Review of Systems: ROS: Gen: + Weakness, No fevers, weight loss Eyes: + icterus; No eye redness, or pain, no recent vision changes Resp: No SOB, no cough Cardio: No palpitations/irregular beats, no chest pain GI: No abdominal pain + Nausea/vomiting - few episodes prior to arrival : Denies pain on urination Skin: + Jaundice Physical Exam Constitutional: well developed and + ill appearing Respiratory: normal respiratory effort, lungs clear to auscultation Cardiovascular: RRR, no murmur, no edema Gastrointestinal (Abdomen): normal bowel sounds, soft, nontender, no hepatosplenomegaly Neurologic: PERRL, EOMI, accommodation nl, no face palsy, no dysarthria awake; not confused Psychiatric: A+Ox3, euthymic affect Orientation: alert, oriented x 3 and cooperative Lymphatic: no cervical or axillary lymphadenopathy Results & Data ([facility]) Vital Signs (Past 12 Hours) Vital Signs Temp Pulse Resp BP Pulse Ox 02/23/21 08:33 36.4 C L 70 16 143/84 H 94 Laboratory Results WBC 10, Hb 13, Hct 37, plts 139, INR 1.9, Na 137, K 4.2, Cl 108, CO2 21, BUN 11. Creatinine - unable to assess - as icteric sample Diagnostic Findings MRCP , US, CT with clear ducts. Portal vein US without thrombosis
[2021-02-24 06:33] LABS: Eosinophils # (auto) 0.01 K/uL (0-0.5); Eosinophils % (auto) 0.1 %; Hematocrit (blood only) 39.1 % (42-52); Hemoglobin 14.3 g/dL (14.0-18.0); Immature Granulocytes # (auto) 0.03 K/uL (0.00-0.02); Immature Granulocytes % (auto) 0.2 %; Lymphocytes # (auto) 0.74 K/uL (1.2-3.4); Lymphocytes % (auto) 5.7 %; Mean Corpuscular Hemoglobin 33.2 pg (25-34); Mean Corpuscular Hgb Conc 36.6 g/dL (32-36); Mean Corpuscular Volume 90.7 fL (80-100); Mean Platelet Volume 10.3 fL (7.4-10.4); Monocytes # (auto) 1.48 K/uL (0.11-0.59); Monocytes % (auto) 11.4 %; Neutrophils # (auto) 10.74 K/uL (1.4-6.5); Neutrophils % (auto) 82.6 %; Platelet Count 147 K/uL (130-400); RDW Coefficient of Variation 20.5 % (11.5-14.5); RDW Standard Deviation 68.2 fL (36.4-46.3); Red Blood Count 4.31 M/uL (4.7-6.1)
[2021-02-24 07:04] LABS: Anisocytosis Present; Echinocytes 1+; Target Cells 1+
[2021-02-24 07:36] LABS: Alanine Aminotransferase 134 U/L (12-78); Albumin Level 1.7 gm/dl (3.4-5.0); Alkaline Phosphatase 171 U/L (45-117); Aspartate Aminotransferase 134 U/L (15-37); Bilirubin Direct 21.5 mg/dl (0-0.2); Bilirubin,Total 27.7 mg/dl (0.2-1); Blood Urea Nitrogen 13 mg/dl (7-18); Calcium 9.3 mg/dl (8.5-10.1); Carbon Dioxide 22 mmol/L (21-32); Chloride 109 mmol/L (98-107); Glucose 116 mg/dl (70-99); Magnesium 2.2 mg/dl (1.8-2.4); Phosphorus 3.6 mg/dl (2.5-4.9); Potassium 4.1 mmol/L (3.5-5.1); Sodium 137 mmol/L (136-145)
[2021-02-24 08:50] LABS: INR 1.9 (0.9-1.1); Prothrombin Time 18.1 Seconds (9.0-12.0)
[2021-02-24] MEDS: METOPROLOL TARTRATE 50 MG TAB PO SCH (09:24)
[2021-02-24] MEDS: PANTOprazole 40 MG TAB PO SCH (09:24)
[2021-02-24] MEDS: prednisoLONE SYRUP 15 MG/5 ML BTL PO SCH (09:24)
[2021-02-24] MEDS: FAMOTIDINE 20 MG in SYRINGE 3 ML IV SCH (09:24)
[2021-02-24] MEDS: SPIRONOLACTONE 25 MG TAB PO SCH (09:24)
--- NOTE | 2021-02-24 12:02 | Discharge Summary ---
Date of Service February 24, 2021 Admission HPI Per Admitting Provider The patient is a 50-year-old male with a past medical history including GERD without esophagitis, IPMN, coagulopathy, pancreatitis, gout, hypertension, alcoholic hepatitis, history of alcohol abuse, elevated bilirubin, jaundice, and obesity. Patient reports his last alcohol intake was [address] of the abdomen and pelvis with IV contrast: Nodular contour of the liver compatible with cirrhosis. Moderate ascites significantly increased from prior exam. Distention of gallbladder compared to the prior exam with a stone noted in the gallbladder neck. Acute cholecystitis cannot be excluded. The ED discussed the case with general surgery Dr. Jade, who recommended that the patient required surgery, he should be transferred to a tertiary care facility, but in the meantime recommend a GI consult. GI consult Dr. Lr suggested further evaluation for choledocholithiasis, but if bili obstruction was not suggestive would recommend transfer to a tertiary care facility. The patient's case was then presented to medicine, and we ordered an MRCP. Admission Exam Per Admitting Provider The patient is awake, alert and oriented 3, well developed and well nourished, normocephalic and atraumatic, standing upright/walking in the room, and in no acute distress. HEENT--PERRL, EOMI, mucous membranes and oropharynx normal, scleral icterus Neck--supple. No JVD. No bruits. Thyroid normal, trachea midline, no adenopathy. Heart--normal S1 and S2. No murmurs, rubs or gallops. Lungs--clear bilaterally, no respiratory distress, no accessory muscle use. Abdomen--normal bowel sounds and soft. Nontender. Nondistended. Obese. Extremities--no cyanosis or clubbing. 1+ bilateral pretibial pitting edema Dermatologic--skin is jaundiced. Neurologic--cranial nerves II through XII grossly intact. Rheumatologic--normal range of motion. Psychiatric--normal affect. Principal Diagnosis Acute on Chronic Liver Failure Discharge Exam General: A&Ox3. NAD. Cooperative. Jaundiced. HEENT: Atraumatic, normocephalic. Scleral icterus. Pulm: CTAB A&P. -wheezes, -rales, -rhonchi. Symmetrical chest rise. No increase work of breathing. No respiratory distress. Cardiac: RRR, -mrg. Radial pulses intact and symmetrical. Abdominal: soft, non-tender, non-distended, BS x 4 Skin: completely jaundiced Discharge Data Allergies Allergy/AdvReac Type Severity Reaction Status Date / Time No Known Drug Allergies Allergy Unknown Verified 02/17/21 21:43 Consultations 02/17/21 23:49 ED Decision to Admit Stat 02/18/21 05:19 Consult Gastroenterology Routine 02/22/21 16:41 Consult Radiology Routine Procedures Performed Operation Date: 02/21/21 07:00 <No data on this case meets the specified criteria> Operation Date: 02/22/21 09:25 <No data on this case meets the specified criteria> Ordered Studies 02/17/21 19:16 CT abd pelvis IV con only Stat 02/17/21 22:16 US gallbladder Urgent 02/18/21 00:58 MR MRCP Stat 02/18/21 14:00 US duplex portal hepatic veins Routine 02/18/21 15:20 US paracentesis abd w/image Routine Hospital Course (1) Liver cirrhosis: Luther is a 50-year-old man with a history of significant alcohol use (previously >16 floz of vodka/day), cirrhosis, GERD, IPMN, gout, HTN who was admitted to [facility] from 02/18 - 02/24 for acute on chronic liver failure. Acute on Chronic Liver Failure Suspect due to worsening cirrhosis given prolonged alcohol abuse, although the patient denies any alcohol use for 6-8 months. No signs of biliary obstruction on MRCP. Drug-induced liver injury (2/2 supplement use) may be contributing but is less likely. - Bilirubin remains elevated in mid-20s and LFTs remain elevated in 100s-200s. - Hepatitis panel negative and CMV/EBV IgG positive (but IgM negative) - EMILIANO, Ansi-mitochondrial, Anti-smooth muscle negative - ceruloplasmin and alpha-1 antitrypsin pending - Discriminant score of 57.7 - poor prognosis - GI consulted - appreciate recs - s/p paracentesis on 02/18 - negative for infection or malignancy; likely due to portal HTN - INR remained at 1.9 -2 throughout hospitalization; biopsy unable to be performed - Prednisolone 40mg PO daily started on 02/22 for suspected alcoholic hepatitis, will continue after discharge - patient will follow up with [facility] Hepatology as outpatient for liver transplant consultation - started Spironolactone 50mg BID while here; continue after discharge - avoid hepatotoxic medications Severe Alcohol Use Disorder, in Mild Remission 6-8 months since last drink per patient. - encouraged cessation HTN: Stable, normotensive. - Continue home Lopressor - continue Spironolactone (2) Anasarca: (3) Ascites: (4) Cholelithiasis: (5) GERD without esophagitis: (6) IPMN (intraductal papillary mucinous neoplasm): (7) Gout: (8) Hypertension: (9) Alcoholic hepatitis: (10) History of alcohol abuse: (11) Elevated bilirubin: (12) Jaundice: Total Time Total Time Spent Total Time Spent (In Minutes): 45 minutes Discharge Plan Discharge Items Patient Disposition: Home - Self-Care Reason For Visit: WORSENING LFT'S, CIRRHOSIS, ASCITES, COAGULOPATHY Discharge Diagnosis: Acute on Chronic Liver Failure Activity: Per Instructions section Non-emergency contact: Primary Care Provider, Specialist and Internet Project Manager Call non-emergency contact if: you have any medication questions, your symptoms worsen, your pain is worsening and you have a fever Follow-up/Referrals: Marino Mccullough CRNP [Primary Care Provider] - 03/02/21 9:00 am (please schedule patient within 1 week of discharge) Diet: Low Sodium (2gm) Addtl Attending Provider Instructions: You were admitted to [facility] from 02/18 - 02/24 for acute on chronic liver failure. Your chronic liver failure and cirrhosis is due to your chronic alcohol use. As far as the acute worsening of your liver failure over the last month, it is unclear what has caused this. We consulted our GI doctors, and we also were regularly in touch with liver doctors from [facility] and [facility]. With their recommendations, we did an extensive evaluation looking for possible causes of your worsening liver failure; there are still several blood tests that have not resulted yet, but thus far, the blood tests have not indicated a cause. During this hospitalization we removed fluid from your abdomen which significantly improved your abdominal pain. We also started you on daily steroids, which often helps in acute liver failure. You will be discharged on 02/24 in stable condition. You should continue to take steroids for . [facility] your appointment with liver transplant specialist. You should also follow up next week for a liver biopsy, which will be scheduled at [facility]. Please follow up with your PCP. You will continue to take a medication called Spironolactone, which is a daily medication that helps control blood pressure in patients with cirrhosis. You should continue to take your other home medications as scheduled. Pending Studies at Discharge: Yes Studies:: ceruloplasmin, alpha-1 antitrypsin Stand-Alone Forms: My [facility], Smoking Cessation Medications and DC Order Prescriptions: New prednisolone sodium phosphate 10 mg tablet,disintegrating 40 mg PO DAILY Qty: 120 RF: 0 spironolactone 50 mg tablet 50 mg PO BID Qty: 60 RF: 1 prednisolone 15 mg/5 mL solution 42 mg PO QAM Qty: 480 RF: 0 Continued allopurinol 300 mg tablet 300 mg PO HS Qty: 90 RF: 1 metoprolol tartrate 50 mg tablet 50 mg PO BID Qty: 180 RF: 1 trazodone 100 mg tablet 50 - 100 mg PO HS PRN (Reason: Sleep) RF: 0 omeprazole 40 mg capsule,delayed release(DR/EC) 40 mg PO DAILY RF: 0 Discharge Orders: Discharge Order (Routine); Ordered 02/24/21 Ordered By: Serafin Amezcua/Other Patient Handouts: Liver Problems Signs Ch Admission Data Admit Date/Time: 02/18/21 01:26 Attending Provider: Yang Ayala Admit Provider: Kvng Camarena Primary Care Provider: Marino Mccullough Other Providers: Kvng Camarena ; Lelia Cristina ; Romy Minaya ; Kylie Dupree ; Javier Henderson ; Tono Fry ; Jamshid Ivy ; Gopi Chen ; Roselia Cortes ; Yassine Cronin ; Marino Roy ; Maicol Camarillo ; Gardenia Duque V. ; Maulik Zavala Other Interventions: Discharge Summary Assessment (RN) Last Done: 02/24/21 14:18 Supervising Physician Co-Signing Physician Notes Attending attestation Pt seen and examined in concert with Dr. Mcfarland. In agreement with the documented findings as noted in the resident documentation with any exceptions or additions as noted here. Improving distention and no present abdominal pain. Tolerating POI. On examination, S1/S2 nl RRR no MCG. CTAB. Abd NT, distended improved throughout, BS+ve Acute on chronic hepatic failure with cirrhosis - ceruloplasmin and A1a pending, remaining w/u negative as above. continue spironolactone. complete course of s teroids. F/u w/ hepatology pending. Severe alcohol use disorder, mild remission - encourage continued cessation Else see resident documentation as noted. Total attending time spent on this case on the day of discharge: 35 minutes. Resident Activity Tracking Resident Involvement: Resident Care Provided Care Provided: Adult Hospital Medicine
[2021-02-24 13:29] LABS: Anti Mitochondrial Antibody NEGATIVE (NEGATIVE); Anti Nuclear Antibody Screen NEGATIVE (NEGATIVE); Smooth Muscle Antibody NEGATIVE (NEGATIVE)
--- NOTE | 2021-02-24 16:13 | Gastroenterology Progress Note ---
Date of Service February 24, 2021 Assessment & Plan (1) Liver cirrhosis: Plan: Empirically treating ETOH hepatitis with prednisolone - send home on 40mg daily - with plan for hepatology to taper. Low salt, regular consistency diet. No alcohol OK for DC. Has OP Hepatology appt with [place] Sunday 03/04. Arranging OP IR transjugular bx at [facility] - Disccussed with Dr. Vallejo - agrees to do a Transjugular liver Bx - pt aware and agrees to go to [place] for the procedure. Dr. Vallejo's office will reach out to pt to schedule, likely next week. Reviewing serology/ labs to r/o other causes of liver dx as returns: Thus far: iron normal; transferrin sat 90%, HepA/B/C, CMV and EB (-); tTG and parvovirus pending. Ceruloplasmin and alpha 1 antitrypsin deficiency are pending (2) IPMN (intraductal papillary mucinous neoplasm): Plan: OP f/u imaging. (3) Jaundice: Plan: See liver cirrhosis. Admission and Anticipated Discharge Date Admission Date: February 18, 2021 Supervising Physician Co-Signing Physician Notes Attending attestation Late entry, patient was seen on date of [employer] ATTEND[employer] provider: I have seen, examined this patient, and agree with the findings and above by our mid-level provider DAPHNIE Baer, with the following additions - no confusion - oupt plan in place Subjective 50 male acute on chronic liver failure with concern for alcoholic hepatitis Ascites: paracentesis 02/18 culture (-). T Bili increasing slightly compared to prior few days. . .Reports feeling more energy on steroids improved appetite, interested in being able to the home. Review of Systems Review of Systems: ROS: Gen: + Weakness, No fevers, weight loss Eyes: + icterus; No eye redness, or pain, no recent vision changes Resp: No SOB, no cough Cardio: No palpitations/irregular beats, no chest pain GI: No abdominal pain + Nausea/vomiting - few episodes prior to arrival : Denies pain on urination Skin: + Jaundice Physical Exam Constitutional: well developed and + ill appearing Eyes: PEARLA; + icterus ENMT: external ear and nose normal, oropharynx normal Neck: trachea midline, no thyromegaly Respiratory: normal respiratory effort, lungs clear to auscultation Cardiovascular: RRR, no murmur, no edema Gastrointestinal (Abdomen): normal bowel sounds, soft, nontender, no hepatosplenomegaly minimal palpable ascites Skin: +++ jaundice; no lesions Neurologic: PERRL, EOMI, accommodation nl, no face palsy, no dysarthria awake; not confused Psychiatric: A+Ox3, euthymic affect Orientation: alert, oriented x 3 and cooperative Lymphatic: no cervical or axillary lymphadenopathy Results & Data ([facility]) Vital Signs (Past 12 Hours) Vital Signs Temp Pulse Resp BP BP Pulse Ox 02/24/21 09:22 84 139/82 02/24/21 07:40 36.6 C 66 16 129/85 96 Laboratory Results WBC 13, hemoglobin 14, platelets 147, NA 137, K4.1, CL 109, CO2 22, BUN 13, CR 1.24, T bili 27, T bili 21, AST 134, ALT Diagnostic Findings Doppler US 02/18/21: No PVT MRCP 02/18/21: 1. Cirrhotic liver with splenomegaly and a small amount of ascites. This is similar to the prior CT examination. 2. Mildly distended gallbladder. However, no gallbladder wall thickening. This again noted a punctate stone near the gallbladder neck. However, no definite stones within the common bile duct which appears normal in caliber. CTAP w IV on 02/17/21: 1. Nodular contour of the liver compatible with cirrhosis. Moderate ascites, significantly increased from prior exam. 2. Distention of the gallbladder compared to the prior exam, with a stone noted in the gallbladder neck. Acute cholecystitis cannot be excluded. If clinical concern remains, right upper quadrant ultrasound can be performed. GBUS 03/10/21: The liver is cirrhotic in morphology and heterogeneous in echotexture. 2. The gallbladder is mildly distended and contains biliary sludge. Gallbladder wall thickening is nonspecific and may be related to cirrhosis and ascites. There is no definitive sonographic evidence of acute cholecystitis. If there strong clinical concern for acute cholecystitis a nuclear hepatobiliary scan should be considered. 3. The main portal vein was shown to be widely patent by CT. This was not well assessed by ultrasound. 4. Abdominal ascites.
[2021-02-25 12:56] LABS: Alpha 1 Antitrypsin 169 mg/dL (83-199); Ceruloplasmin 28 mg/dL (18-36)
[2021-02-28 00:01] LABS: Parvovirus IgG 0.5 (<0.9); Parvovirus IgM 0.1 (<0.9)
== END 2021-02-24 15:05 | disposition home or self-care (01) | DRG 432 ==
LOC: ED 16:57 → 2N 02-18 01:26 → SUATTDRO 02-18 01:26 → 2N 02-18 04:38 → 3N 02-20 23:42